=== PATIENT | female | born 2000 | race Caucasian/White ===

== ENCOUNTER 2019-02-01 01:56 | Emergency (ER) | payer BC ==
[2019-02-01 02:08] VITALS: BP 117/66
--- NOTE | 2019-02-01 02:24 | EDM.PDOC ---
ED HPI GENERAL MEDICAL PROBLEM - General Chief Complaint: Cardiovascular Problem Stated Complaint: 12 wks pg HIGH BP Time Seen by Provider: 02/01/19 02:13 - History of Present Illness INITIAL COMMENTS - FREE TEXT/NARRATIVE: 19-year-old female now 12 weeks gestation presents with elevated blood pressure Patient states her blood pressure was 140/90 while she was at work working she had her pulse up to about 140. After slowing down everything normalized quickly. She is a 2 para 0 one miscarriage now at 12 weeks she denies any cramping or contractions she has not had any other suspicious symptoms no seizure activity. - Related Data Allergies Allergy/AdvReac Type Severity Reaction Status Date / Time codeine Allergy Hives Verified 02/01/19 02:10 Home Meds: Home Meds Nitrofurantoin Monohyd/M-Cryst [Macrobid 100 mg Capsule] 100 mg PO Q12H #14 capsule 02/01/19 [Rx] Past Medical History - Past Health History Medical/Surgical History: Denies Medical/Surgical History Other Gastrointestinal History: family history of colon anyrysm. 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 Psychiatric History: Reports: None Endocrine/Metabolic History: Reports: Diabetes, Type II - Past Surgical History HEENT Surgical History: Reports: Oral Surgery (wisdom teeth extraction), Tonsillectomy Social & Family History - Family History Family Medical History: Noncontributory - Tobacco Use Smoking Status *Q: Never Smoker - Caffeine Use Caffeine Use: Reports: Coffee - Recreational Drug Use Recreational Drug Use: No - Living Situation & Occupation Living situation: Reports: Single, with Significant Other (Boyfriend) Occupation: Employed ED ROS GENERAL - Review of Systems Review Of Systems: See Below Constitutional: Reports: No Symptoms HEENT: Reports: No Symptoms Respiratory: Reports: No Symptoms Cardiovascular: Reports: No Symptoms Endocrine: Reports: No Symptoms GI/Abdominal: Reports: No Symptoms : Reports: No Symptoms Psychiatric: Reports: No Symptoms Hematologic/Lymphatic: Reports: No Symptoms Immunologic: Reports: No Symptoms ED EXAM, GENERAL - Physical Exam Exam: See Below Exam Limited By: No Limitations General Appearance: Alert, No Apparent Distress Eye Exam: Bilateral Eye: Normal Inspection Throat/Mouth: Normal Inspection, Normal Lips, Normal Teeth, Normal Gums, Normal Oropharynx, Normal Voice, No Airway Compromise Head: Atraumatic, Normocephalic Neck: Normal Inspection, Supple, Non-Tender, Full Range of Motion Respiratory/Chest: No Respiratory Distress, Lungs Clear, Normal Breath Sounds, No Accessory Muscle Use, Chest Non-Tender Cardiovascular: Normal Peripheral Pulses, Regular Rate, Rhythm, No Edema, No Gallop, No JVD, No Murmur, No Rub GI/Abdominal: Normal Bowel Sounds, Soft, Non-Tender, No Organomegaly, No Distention, No Abnormal Bruit, No Mass, Other (Some obesity heart tones not audible) Rectal (Female) Exam: Normal Exam Back Exam: Normal Inspection. No: CVA Tenderness (L), CVA Tenderness (R) Extremities: Normal Inspection Neurological: Alert, Oriented, Normal Cognition Course - Vital Signs Last Recorded V/S: Last Vital Signs Temp 37.6 C 02/01/19 02:05 Pulse 65 02/01/19 02:05 Resp 20 02/01/19 02:05 BP 117/66 02/01/19 02:05 Pulse Ox 100 02/01/19 02:05 Orthostatic Blood Pressure [ 129/74 Standing] Orthostatic Blood Pressure [ 114/69 Sitting] Orthostatic Blood Pressure [ 114/50 Supine] - Orders/Labs/Meds Orders: Active Orders 24 hr Category Date Time Status Orthostatic Vital Signs [RC] ASDIRECTED Care 02/01/19 02:19 Active Labs: Laboratory Tests 02/01/19 Range/Units 03:08 Urine Color Yellow (Yellow) Urine Appearance Slt cloudy H (Clear) Urine pH 7.5 (5.0-8.0) Ur Specific [place] 1.020 (1.005-1.030) Urine Protein Trace H (Negative) Urine Glucose (UA) Negative (Negative) Urine Ketones 1+ H (Negative) Urine Occult Blood Negative (Negative) Urine Nitrite Negative (Negative) Urine Bilirubin Negative (Negative) Urine Urobilinogen 0.2 (0.2-1.0) Ur Leukocyte Esterase Trace H (Negative) Urine RBC 0-5 (0-5) /hpf Urine WBC 0-5 (0-5) /hpf Ur Squamous Epith Cells 0-5 (0-5) /hpf Urine Bacteria Moderate H (FEW) /hpf Hyaline Casts 0-5 (0-5) /lpf Urine Mucus Few (FEW) /hpf - Re-Assessments/Exams Free Text/Narrative Re-Assessment/Exam: 02/01/19 04:04 A she has an appointment with OB on Monday she should follow up urinalysis is possibly suggestive of infectious process will obtain urine culture and start her on Macrobid Departure - Departure Time of Disposition: 04:07 Disposition: Home, Self-Care 01 Clinical Impression: Blood pressure check, Urinary tract infection Prescriptions: Nitrofurantoin Monohyd/M-Cryst [Macrobid 100 mg Capsule] 100 mg PO Q12H #14 capsule Forms: ED Department Discharge Additional Instructions: Return to emergency room with any questions problems worsening symptoms. Follow-up with Dr. Ojeda Monday as scheduled. You've been started on Macrobid, this is an antibiotic, take one twice daily for a week for an early bladder infection. - My Orders Last 24 Hours: My Active Orders 02/01/19 02:19 Orthostatic Vital Signs [RC] ASDIRECTED - Assessment/Plan Last 24 Hours: My Active Orders 02/01/19 02:19 Orthostatic Vital Signs [RC] ASDIRECTED
== END 2019-02-01 04:14 | disposition home or self-care (01) ==
LOC: JD.ED 01:56
DX: O23.41 Unspecified infection of urinary tract in pregnancy, first trimester (principal); Z01.30 Encounter for examination of blood pressure without abnormal findings; O24.311 Unspecified pre-existing diabetes mellitus in pregnancy, first trimester; E11.9 Type 2 diabetes mellitus without complications; Z98.890 Other specified postprocedural states; Z3A.12 12 weeks gestation of pregnancy
CPT/HCPCS: 81001; 87077; 87086; 99283

== ENCOUNTER 2019-02-18 21:19 | Emergency (ER) | payer BC ==
[2019-02-18 21:30] VITALS: BP 132/72
--- NOTE | 2019-02-18 21:34 | EDM.PDOC ---
ED HPI GENERAL MEDICAL PROBLEM - General Chief Complaint: ENT Problem Stated Complaint: RIGHT EAR PAINFUL/HEARING LOSS Time Seen by Provider: 02/18/19 21:34 - History of Present Illness INITIAL COMMENTS - FREE TEXT/NARRATIVE: 19-year-old female presents emergency room with right ear discomfort and hearing loss. Patient is and has been seeing Dr. Ojeda. She doesn't seem to have problems with the . Last several days the patient is in some ear discomfort on the right side and decreased hearing. She's had a lot of problems with laxatives as in the past she also it feels like maybe some fluid behind there but she's not certain this. Patient denies any fevers or chills. She's not had any upper airway congestion or cough. - Related Data Allergies Allergy/AdvReac Type Severity Reaction Status Date / Time codeine Allergy Hives Verified 02/18/19 21:30 Home Meds: Home Meds Nitrofurantoin Monohyd/M-Cryst [Macrobid 100 mg Capsule] 100 mg PO Q12H #14 capsule 02/01/19 [Rx] Past Medical History - Past Health History Medical/Surgical History: Denies Medical/Surgical History Other Gastrointestinal History: family history of colon anyrysm. 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 Psychiatric History: Reports: None Endocrine/Metabolic History: Reports: Diabetes, Type II - Past Surgical History HEENT Surgical History: Reports: Oral Surgery (wisdom teeth extraction), Tonsillectomy Social & Family History - Family History Family Medical History: Noncontributory - Tobacco Use Smoking Status *Q: Never Smoker - Caffeine Use Caffeine Use: Reports: Coffee - Living Situation & Occupation Living situation: Reports: Single, with Significant Other (Boyfriend) Occupation: Employed ED ROS ENT - Review of Systems Review Of Systems: See Below Constitutional: Reports: No Symptoms HEENT: Reports: Other (The right ear being plugged) Respiratory: Reports: No Symptoms Cardiovascular: Reports: No Symptoms GI/Abdominal: Reports: No Symptoms : Reports: No Symptoms ED EXAM, ENT - Physical Exam Exam: See Below Exam Limited By: No Limitations General Appearance: Alert, No Apparent Distress Ears: Normal External Exam, Normal Canal, TM Obscured by Cerumen, Other (Left tympanic membrane is easily seen small amount of cerumen in the canal right is obstructed) Head: Atraumatic, Normocephalic Neck: Normal Inspection, Supple, Non-Tender, Full Range of Motion Respiratory/Chest: No Respiratory Distress, Lungs Clear, Normal Breath Sounds Cardiovascular: Regular Rate, Rhythm, No Edema, No Murmur ED ENT PROCEDURES - Additional/Other Procedure(s) Other (Free Text) Procedure(s): Cerumen removal right ear: I removed a large amount with a curette it was still impacted up against the eardrum attempted irrigation the gets more out it was still impacted up against the eardrum but I was able to get a hold of it with a couple swipes with the curette and cleaned it out completely patient feels much better ears feeling almost normal Course - Vital Signs Last Recorded V/S: Last Vital Signs Temp 36.3 C 02/18/19 21:26 Pulse 84 02/18/19 21:26 Resp 19 02/18/19 21:26 BP 132/72 02/18/19 21:26 Pulse Ox 97 02/18/19 21:26 - Re-Assessments/Exams Free Text/Narrative Re-Assessment/Exam: 02/18/19 21:52 Quite a large amount of wax was removed from the right canal however I still cannot visualize the tympanic membrane will attempt to irrigate at this point. Departure - Departure Time of Disposition: 22:35 Disposition: Eloped 07 Clinical Impression: Impacted cerumen, right ear - Discharge Information Referrals: Loretta Lovell PA-C [Primary Care Provider] - Forms: ED Department Discharge Additional Instructions: Return to the emergency room with any questions problems worsening symptoms follow-up with your regular provider in about a month. Follow-up with OB as scheduled
== END 2019-02-18 22:40 | disposition home or self-care (01) ==
LOC: JD.ED 21:19
DX: O99.89 Other specified diseases and conditions complicating pregnancy, childbirth and the puerperium (principal); H61.21 Impacted cerumen, right ear; O99.282 Endocrine, nutritional and metabolic diseases complicating pregnancy, second trimester; E11.9 Type 2 diabetes mellitus without complications; Z98.890 Other specified postprocedural states; Z88.5 Allergy status to narcotic agent; Z3A.14 14 weeks gestation of pregnancy
CPT/HCPCS: 99282

== ENCOUNTER 2019-06-04 22:04 | Observation (INO) | payer BC ==
--- NOTE | 2019-06-04 22:39 | EDM.PDOC ---
ED HPI GENERAL MEDICAL PROBLEM - General Chief Complaint: Headache Stated Complaint: [facility] Time Seen by Provider: 06/04/19 22:31 - History of Present Illness INITIAL COMMENTS - FREE TEXT/NARRATIVE: 19-year-old female presents emergency room with a headache she is 28 weeks . Patient is a 2 para 0 now 28 weeks gestation who has had a headache for the last 6 days. She was seen in labor and delivery and had some testing done over the weekend. Her headache is never improved. Of concern is her blood pressure seems to be going up and according to the patient and the mother she usually has low blood pressure. Tonight the patient had an unusual episode where she became less responsive than normal was answering questions very slowly had a glassy look to her eyes and just did not feel well. She has discontinued headache in the frontal region and at the base of her skull. She has not had any fevers or chills no nausea no vomiting just has not felt well. She has not had any cramping or pain with this . No vaginal discharge no bleeding. describes klever's episode as they sat down to eat supper she was not real hungry she was answering questions very slowly. The mother noticed that the patient wasn't right talking to her on the phone and went over to the house right away. [facility] was called the transferred her here. Headache Pain Score (Numeric/FACES): 6 - Related Data Allergies Allergy/AdvReac Type Severity Reaction Status Date / Time codeine Allergy Hives Verified 06/04/19 22:12 Home Meds: Home Meds . [No Known Home Meds] 02/18/19 [History] Past Medical History - Past Health History Medical/Surgical History: Denies Medical/Surgical History Other Gastrointestinal History: family history of colon anyrysm. 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 Psychiatric History: Reports: None Endocrine/Metabolic History: Reports: Diabetes, Type II - Past Surgical History HEENT Surgical History: Reports: Oral Surgery, Tonsillectomy Social & Family History - Family History Family Medical History: Noncontributory - Tobacco Use Smoking Status *Q: Never Smoker - Caffeine Use Caffeine Use: Reports: Coffee - Recreational Drug Use Recreational Drug Use: No - Living Situation & Occupation Living situation: Reports: Single, with Significant Other (Boyfriend) Occupation: Employed ED ROS GENERAL - Review of Systems Review Of Systems: See Below Constitutional: Denies: Fever, Chills HEENT: Reports: No Symptoms Respiratory: Reports: No Symptoms Cardiovascular: Reports: No Symptoms Endocrine: Reports: No Symptoms GI/Abdominal: Reports: No Symptoms. Denies: Abdominal Pain, Constipation, Diarrhea, Nausea, Vomiting : Reports: No Symptoms Musculoskeletal: Reports: No Symptoms. Denies: Neck Pain Skin: Reports: No Symptoms Neurological: Reports: Headache Psychiatric: Reports: No Symptoms Hematologic/Lymphatic: Reports: No Symptoms Immunologic: Reports: No Symptoms ED EXAM - Physical Exam Exam: See Below Exam Limited By: No Limitations General Appearance: Alert, No Apparent Distress Eye Exam: Bilateral Eye: Normal Inspection, PERRL Ears: Normal External Exam, Normal Canal, Hearing Grossly Normal, Normal TMs Nose: Normal Inspection, Normal Mucosa, No Blood Throat/Mouth: Normal Inspection, Normal Lips, Normal Teeth, Normal Gums, Normal Oropharynx, Normal Voice, No Airway Compromise Head: Atraumatic, Normocephalic Neck: Normal Inspection, Supple, Non-Tender, Full Range of Motion. No: Lymphadenopathy (L), Lymphadenopathy (R) Respiratory/Chest: No Respiratory Distress, Lungs Clear, Normal Breath Sounds Cardiovascular: Regular Rate, Rhythm, No Edema GI/Abdominal Exam: Normal Bowel Sounds, Soft, Non-Tender, Other (She is obese heart tones 150 bpm) Heart Tones: Present Heart Tones per Min: 150 Movement: Active Back Exam: Normal Inspection. No: CVA Tenderness (L), CVA Tenderness (R) Extremities: Normal Inspection, No Pedal Edema Course - Vital Signs Last Recorded V/S: Last Vital Signs Temp 36.9 C 06/04/19 22:12 Pulse 87 06/04/19 22:12 Resp 18 06/04/19 22:12 BP 147/72 H 06/04/19 22:12 Pulse Ox 100 06/04/19 22:12 - Orders/Labs/Meds Orders: Active Orders 24 hr Category Date Time Status Lactated Ringers [Ringers, Lactated] 1,000 ml Med 06/04/19 23:00 Active IV ASDIRECTED Medication Orders Lactated Ringer's (Ringers, Lactated) 1,000 mls @ 125 mls/hr IV ASDIRECTED WILLIE Last Admin: 06/04/19 23:09 Dose: 125 mls/hr Labs: Laboratory Tests 06/04/19 06/04/19 06/04/19 Range/Units 22:23 22:55 22:55 WBC 14.28 H (3.98-10.04) K/mm3 RBC 3.98 (3.98-5.22) M/mm3 Hgb 10.7 L D (11.2-15.7) gm/L Hct 33.0 L (34.1-44.9) % MCV 82.9 D (79.4-94.8) fl MCH 26.9 (25.6-32.2) pg MCHC 32.4 (32.2-35.5) g/dl RDW Std Deviation 39.3 (36.4-46.3) fL Plt Count 364 (182-369) K/mm3 MPV 10.1 (9.4-12.3) fl Neutrophils % (Manual) 67 H (40-60) % Band Neutrophils % 0 (0-10) % Lymphocytes % (Manual) 27 (20-40) % Atypical Lymphs % 0 % Monocytes % (Manual) 5 (2-10) % Eosinophils % (Manual) 1 (0.7-5.8) % Basophils % (Manual) 0 L (0.1-1.2) Toxic Granulation 1+ slight Platelet Estimate Adequate Plt Morphology Comment Normal Microcytosis 1+ slight RBC Morph Comment Not Reportable PT (9.7-12.0) SECONDS INR APTT (22-31) SECONDS Fibrinogen (187-446) mg/dL Fibrin Degrad Products (<5) ug/mL Sodium 138 (136-145) mEq/L Potassium 3.7 (3.5-5.1) mEq/L Chloride 105 (98-107) mEq/L Carbon Dioxide 24 (21-32) mEq/L Anion Gap 12.7 (5-15) BUN 10 (7-18) mg/dL Creatinine 0.8 (0.55-1.02) mg/dL Est Cr Clr Drug Dosing 113.16 mL/min Estimated GFR (MDRD) > 60 (>60) mL/min BUN/Creatinine Ratio 12.5 L (14-18) Glucose 102 (74-106) mg/dL Uric Acid 4.2 (2.6-6.0) mg/dL Calcium 8.8 (8.5-10.1) mg/dL Total Bilirubin 0.2 (0.2-1.0) mg/dL AST 15 (15-37) U/L ALT 33 (14-59) U/L Alkaline Phosphatase 98 (46-116) U/L Total Protein 6.6 (6.4-8.2) g/dl Albumin 2.3 L (3.4-5.0) g/dl Globulin 4.3 gm/dL Albumin/Globulin Ratio 0.5 L (1-2) Urine Color Yellow (Yellow) Urine Appearance Clear (Clear) Urine pH 7.0 (5.0-8.0) Ur Specific [place] 1.010 (1.005-1.030) Urine Protein Negative (Negative) Urine Glucose (UA) Negative (Negative) Urine Ketones Negative (Negative) Urine Occult Blood Negative (Negative) Urine Nitrite Negative (Negative) Urine Bilirubin Negative (Negative) Urine Urobilinogen 0.2 (0.2-1.0) Ur Leukocyte Esterase Negative (Negative) Urine RBC 0-5 (0-5) /hpf Urine WBC 0-5 (0-5) /hpf Ur Epithelial Cells 0-5 (0-5) /hpf Urine Bacteria Few (FEW) /hpf Urine Mucus Not seen (FEW) /hpf 06/04/19 06/04/19 Range/Units 22:55 22:55 WBC (3.98-10.04) K/mm3 RBC (3.98-5.22) M/mm3 Hgb (11.2-15.7) gm/L Hct (34.1-44.9) % MCV (79.4-94.8) fl MCH (25.6-32.2) pg MCHC (32.2-35.5) g/dl RDW Std Deviation (36.4-46.3) fL Plt Count (182-369) K/mm3 MPV (9.4-12.3) fl Neutrophils % (Manual) (40-60) % Band Neutrophils % (0-10) % Lymphocytes % (Manual) (20-40) % Atypical Lymphs % % Monocytes % (Manual) (2-10) % Eosinophils % (Manual) (0.7-5.8) % Basophils % (Manual) (0.1-1.2) Toxic Granulation Platelet Estimate Plt Morphology Comment Microcytosis RBC Morph Comment PT 9.9 (9.7-12.0) SECONDS INR < 0.93 APTT 25 (22-31) SECONDS Fibrinogen 647 H (187-446) mg/dL Fibrin Degrad Products < 5 ug/ml (<5) ug/mL Sodium (136-145) mEq/L Potassium (3.5-5.1) mEq/L Chloride (98-107) mEq/L Carbon Dioxide (21-32) mEq/L Anion Gap (5-15) BUN (7-18) mg/dL Creatinine (0.55-1.02) mg/dL Est Cr Clr Drug Dosing mL/min Estimated GFR (MDRD) (>60) mL/min BUN/Creatinine Ratio (14-18) Glucose (74-106) mg/dL Uric Acid (2.6-6.0) mg/dL Calcium (8.5-10.1) mg/dL Total Bilirubin (0.2-1.0) mg/dL AST (15-37) U/L ALT (14-59) U/L Alkaline Phosphatase (46-116) U/L Total Protein (6.4-8.2) g/dl Albumin (3.4-5.0) g/dl Globulin gm/dL Albumin/Globulin Ratio (1-2) Urine Color (Yellow) Urine Appearance (Clear) Urine pH (5.0-8.0) Ur Specific [place] (1.005-1.030) Urine Protein (Negative) Urine Glucose (UA) (Negative) Urine Ketones (Negative) Urine Occult Blood (Negative) Urine Nitrite (Negative) Urine Bilirubin (Negative) Urine Urobilinogen (0.2-1.0) Ur Leukocyte Esterase (Negative) Urine RBC (0-5) /hpf Urine WBC (0-5) /hpf Ur Epithelial Cells (0-5) /hpf Urine Bacteria (FEW) /hpf Urine Mucus (FEW) /hpf Meds: Medications Generic Name Dose Route Start Last Admin Trade Name Freq PRN Reason Stop Dose Admin Lactated Ringer's 1,000 mls @ 125 mls/hr 06/04/19 23:00 06/04/19 23:09 Ringers, Lactated IV 125 mls/hr ASDIRECTED WILLIE Administration Discontinued Medications Generic Name Dose Route Start Last Admin Trade Name Freq PRN Reason Stop Dose Admin Hydroxyzine HCl 50 mg 06/04/19 23:23 06/04/19 23:56 Vistaril IM 06/04/19 23:24 50 mg ONETIME ONE Administration Morphine Sulfate 10 mg 06/04/19 23:45 06/04/19 23:57 Morphine IV 06/04/19 23:46 10 mg ONETIME ONE Administration - Re-Assessments/Exams Free Text/Narrative Re-Assessment/Exam: 06/05/19 00:45 Patient's presents emergency room with a history concerning for possible preeclampsia. Dr. Ojeda consulted early. Reviewed labs to go over. Initial plan is to have her do an extended outpatient OB check after leaving the department here after initial labs tomorrow morning we'll check an OB ultrasound and recheck all her labs. Patient is feeling much better at this time after receiving 10 mg of IM morphine and 50 mg of IM hydroxyzine. She'll be placed on a low-salt diet. Departure - Departure Time of Disposition: 23:25 Disposition: Refer to Observation Clinical Impression: 28 weeks gestation of , Headache, Elevated blood pressure affecting in third trimester, antepartum - Discharge Information - My Orders Last 24 Hours: My Active Orders 06/04/19 23:00 Lactated Ringers [Ringers, Lactated] 1,000 ml IV ASDIRECTED - Assessment/Plan Last 24 Hours: My Active Orders 06/04/19 23:00 Lactated Ringers [Ringers, Lactated] 1,000 ml IV ASDIRECTED
[2019-06-04] MEDS ORDERED: Lactated Ringers 1,000 ML IV SCH (23:00)
[2019-06-04] MEDS ORDERED: hydrOXYzine HCl 25 MG/ML SDV IM ONE (23:23)
[2019-06-04] MEDS ORDERED: Morphine 10 MG/ML Syringe IM ONE (23:23)
[2019-06-05] MEDS ORDERED: Lactated Ringers 1,000 ML IV SCH (01:45)
[2019-06-05] MEDS ORDERED: Acetaminophen 325 MG Tab PO PRN (02:36)
[2019-06-05 04:46] VITALS: BP 122/45; PULSE 67
[2019-06-05] MEDS ORDERED: Famotidine 20 MG/2 ML SDV IVPUSH ONE (08:20)
--- NOTE | 2019-06-05 08:54 | PCM.LDHP ---
<Arlene Faria - Last Filed: 06/05/19 10:34> L&D History of Present Illness - General Date of Service: 06/05/19 Admit Problem/Dx: Patient Status Order with Admit Dx/Problem 06/05/19 00:44 Admission Status [Patient Status] [ADT] Routine 06/05/19 08:02 Patient Status [ADT] Routine 06/05/19 08:22 Patient Status [ADT] Routine Admission Diagnosis/Problem Admission Diagnosis/Problem Headache/AMS 06/05/19 08:49 Source of Information: Patient, Significant Other History Limitations: Reports: Other - History of Present Illness Introduction:: Yessenia is a 19 year old female TANO 08/16/2019 at EGA 29 5/7 weeks being observed in L&D for a headache and an AMS( Altered Mental Status) episode. Currently she is A&O x3. She states her headache started last weekend and she was seen in L&D at that time for an evaluation and was discharged home. At the time of this current headache, she was at home in [place] eating dinner at about 8 PM last night when she was "not feeling right and got really hot." Her had her lay down on the couch with no relief. She does not have a very good recollection from the onset of her headache to arriving in the ED last night. Per her , her eyes became glassy and she was very slow to answer questions. At the worst, her headache was a 7/10, it is currently a 4/ 10. Pt described the headache as being a constant pressure behind her eyes, at the back of her head and the base of her neck. It also makes her " hypersensitive to light and sound." She states she remembers everything from the time she arrived at the hospital until now but that things are still foggy. Timing/Duration: Reports: sudden onset, constant/continuous Quality: Reports: Pressure Severity: Moderate Pain Score: 4 Improves with: Reports: Medication, Rest Worsens with: Reports: Movement - Related Data Allergies/Adverse Reactions: Allergies Allergy/AdvReac Type Severity Reaction Status Date / Time codeine Allergy Hives Verified 06/05/19 01:19 Home Medications: Home Meds Pnv with Ca,No.72/Iron/Fa [ Vitamin with Low Iron] 1 each PO DAILY 06/05 [History] Past Medical History - Past Health History Medical/Surgical History: Denies Medical/Surgical History HEENT History: Reports: Allergic Rhinitis Other Gastrointestinal History: family history of colon anyrysm. 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 - Past Surgical History HEENT Surgical History: Reports: Oral Surgery, Tonsillectomy Social & Family History - Family History Family Medical History: Noncontributory Cardiac: Reports: Angina (maternal grandpa), Hypertension (mom) OBGYN: Reports: Other (See Below) (mother had preecclampsia with all of her children) Endocrine/Metabolic: Reports: Diabetes, type II (maternal and paternal grandparents) - Tobacco Use Smoking Status *Q: Former Smoker Used Tobacco, but Quit: Yes Month/Year Tobacco Last Used: 2017 - Caffeine Use Caffeine Use: Reports: Coffee Other Caffeine Use: One cup a day - Recreational Drug Use Recreational Drug Use: No - Living Situation & Occupation Living situation: Reports: Single, with Significant Other (Boyfriend) Occupation: Employed H&P Review of Systems - Review of Systems: Review Of Systems: See Below General: Reports: Weakness HEENT: Reports: Eye Pain, Headaches, Visual Changes Pulmonary: Reports: No Symptoms Cardiovascular: Reports: No Symptoms Gastrointestinal: Reports: No Symptoms Genitourinary: Reports: No Symptoms Musculoskeletal: Reports: No Symptoms Skin: Reports: No Symptoms Psychiatric: Reports: No Symptoms Neurological: Reports: Headache, Weakness Hematologic/Lymphatic: Reports: No Symptoms Immunologic: Reports: Seasonal Allergy L&D Exam - Exam Exam: See Below - Vital Signs Vital Signs: Last Vital Signs Temp 98.3 F 06/05/19 04:45 Pulse 67 06/05/19 04:45 Resp 16 06/05/19 04:45 BP 122/45 L 06/05/19 04:45 Pulse Ox 96 06/05/19 04:45 Weight: 283 lb 8 oz - OB Specific Movement: Active Heart Tones: Present Heart Tones per Min: 150 - Exam General: Alert, Oriented, Cooperative HEENT: Conjunctiva Clear, EACs Clear, EOMI, Hearing Intact, Mucosa Moist & [place] , Nares Patent, Posterior Pharynx Clear, Pupils Equal, Pupils Reactive, TMs Clear Neck: Supple, Trachea Midline Lungs: Clear to Auscultation, Normal Respiratory Effort Cardiovascular: Regular Rate, Regular Rhythm GI/Abdominal Exam: Normal Bowel Sounds, Soft, Non-Tender, No Abnormal Bruit Extremities: Normal Inspection, Normal Range of Motion, Non-Tender, No Pedal Edema, Normal Capillary Refill Skin: Warm, Dry, Intact Neurological: Cranial Nerves Intact, Strength Equal Bilateral, Normal Gait, Normal Speech, Normal Tone, Sensation Intact Psychiatric: Alert, Normal Mood, Other (flat affect ) - Patient Data Lab Results Last 24 hrs: Laboratory Results - last 24 hr 06/04/19 06/04/19 06/04/19 Range/Units 22:23 22:55 22:55 WBC 14.28 H (3.98-10.04) K/mm3 RBC 3.98 (3.98-5.22) M/mm3 Hgb 10.7 L D (11.2-15.7) gm/L Hct 33.0 L (34.1-44.9) % MCV 82.9 D (79.4-94.8) fl MCH 26.9 (25.6-32.2) pg MCHC 32.4 (32.2-35.5) g/dl RDW Std Deviation 39.3 (36.4-46.3) fL Plt Count 364 (182-369) K/mm3 MPV 10.1 (9.4-12.3) fl Neut % (Auto) (34.0-71.1) % Lymph % (Auto) (19.3-51.7) % [place] % (Auto) (4.7-12.5) % Eos % (Auto) (0.7-5.8) Baso % (Auto) (0.1-1.2) % Neut # (Auto) (1.56-6.13) K/mm3 Lymph # (Auto) (1.18-3.74) K/mm3 [place] # (Auto) (0.24-0.36) K/mm3 Eos # (Auto) (0.04-0.36) K/mm3 Baso # (Auto) (0.01-0.08) K/mm3 Neutrophils % (Manual) 67 H (40-60) % Band Neutrophils % 0 (0-10) % Lymphocytes % (Manual) 27 (20-40) % Atypical Lymphs % 0 % Monocytes % (Manual) 5 (2-10) % Eosinophils % (Manual) 1 (0.7-5.8) % Basophils % (Manual) 0 L (0.1-1.2) Toxic Granulation 1+ slight Platelet Estimate Adequate Plt Morphology Comment Normal Microcytosis 1+ slight RBC Morph Comment Not Reportable PT (9.7-12.0) SECONDS INR APTT (22-31) SECONDS Fibrinogen (187-446) mg/dL Fibrin Degrad Products (<5) ug/mL Sodium 138 (136-145) mEq/L Potassium 3.7 (3.5-5.1) mEq/L Chloride 105 (98-107) mEq/L Carbon Dioxide 24 (21-32) mEq/L Anion Gap 12.7 (5-15) BUN 10 (7-18) mg/dL Creatinine 0.8 (0.55-1.02) mg/dL Est Cr Clr Drug Dosing 113.16 mL/min Estimated GFR (MDRD) > 60 (>60) mL/min BUN/Creatinine Ratio 12.5 L (14-18) Glucose 102 (74-106) mg/dL Uric Acid 4.2 (2.6-6.0) mg/dL Calcium 8.8 (8.5-10.1) mg/dL Total Bilirubin 0.2 (0.2-1.0) mg/dL AST 15 (15-37) U/L ALT 33 (14-59) U/L Alkaline Phosphatase 98 (46-116) U/L Total Protein 6.6 (6.4-8.2) g/dl Albumin 2.3 L (3.4-5.0) g/dl Globulin 4.3 gm/dL Albumin/Globulin Ratio 0.5 L (1-2) Urine Color Yellow (Yellow) Urine Appearance Clear (Clear) Urine pH 7.0 (5.0-8.0) Ur Specific [place] 1.010 (1.005-1.030) Urine Protein Negative (Negative) Urine Glucose (UA) Negative (Negative) Urine Ketones Negative (Negative) Urine Occult Blood Negative (Negative) Urine Nitrite Negative (Negative) Urine Bilirubin Negative (Negative) Urine Urobilinogen 0.2 (0.2-1.0) Ur Leukocyte Esterase Negative (Negative) Urine RBC 0-5 (0-5) /hpf Urine WBC 0-5 (0-5) /hpf Ur Epithelial Cells 0-5 (0-5) /hpf Amorphous Sediment (NOT SEEN) /hpf Urine Bacteria Few (FEW) /hpf Urine Mucus Not seen (FEW) /hpf 06/04/19 06/04/19 06/05/19 Range/Units 22:55 22:55 02:18 WBC (3.98-10.04) K/mm3 RBC (3.98-5.22) M/mm3 Hgb (11.2-15.7) gm/L Hct (34.1-44.9) % MCV (79.4-94.8) fl MCH (25.6-32.2) pg MCHC (32.2-35.5) g/dl RDW Std Deviation (36.4-46.3) fL Plt Count (182-369) K/mm3 MPV (9.4-12.3) fl Neut % (Auto) (34.0-71.1) % Lymph % (Auto) (19.3-51.7) % [place] % (Auto) (4.7-12.5) % Eos % (Auto) (0.7-5.8) Baso % (Auto) (0.1-1.2) % Neut # (Auto) (1.56-6.13) K/mm3 Lymph # (Auto) (1.18-3.74) K/mm3 [place] # (Auto) (0.24-0.36) K/mm3 Eos # (Auto) (0.04-0.36) K/mm3 Baso # (Auto) (0.01-0.08) K/mm3 Neutrophils % (Manual) (40-60) % Band Neutrophils % (0-10) % Lymphocytes % (Manual) (20-40) % Atypical Lymphs % % Monocytes % (Manual) (2-10) % Eosinophils % (Manual) (0.7-5.8) % Basophils % (Manual) (0.1-1.2) Toxic Granulation Platelet Estimate Plt Morphology Comment Microcytosis RBC Morph Comment PT 9.9 (9.7-12.0) SECONDS INR < 0.93 APTT 25 (22-31) SECONDS Fibrinogen 647 H (187-446) mg/dL Fibrin Degrad Products < 5 ug/ml (<5) ug/mL Sodium (136-145) mEq/L Potassium (3.5-5.1) mEq/L Chloride (98-107) mEq/L Carbon Dioxide (21-32) mEq/L Anion Gap (5-15) BUN (7-18) mg/dL Creatinine (0.55-1.02) mg/dL Est Cr Clr Drug Dosing mL/min Estimated GFR (MDRD) (>60) mL/min BUN/Creatinine Ratio (14-18) Glucose (74-106) mg/dL Uric Acid (2.6-6.0) mg/dL Calcium (8.5-10.1) mg/dL Total Bilirubin (0.2-1.0) mg/dL AST (15-37) U/L ALT (14-59) U/L Alkaline Phosphatase (46-116) U/L Total Protein (6.4-8.2) g/dl Albumin (3.4-5.0) g/dl Globulin gm/dL Albumin/Globulin Ratio (1-2) Urine Color Yellow (Yellow) Urine Appearance Clear (Clear) Urine pH 7.0 (5.0-8.0) Ur Specific [place] 1.020 (1.005-1.030) Urine Protein Negative (Negative) Urine Glucose (UA) Negative (Negative) Urine Ketones Negative (Negative) Urine Occult Blood Negative (Negative) Urine Nitrite Negative (Negative) Urine Bilirubin Negative (Negative) Urine Urobilinogen 0.2 (0.2-1.0) Ur Leukocyte Esterase Negative (Negative) Urine RBC 0-5 (0-5) /hpf Urine WBC 0-5 (0-5) /hpf Ur Epithelial Cells 0-5 (0-5) /hpf Amorphous Sediment Few H (NOT SEEN) /hpf Urine Bacteria Rare (FEW) /hpf Urine Mucus Not seen (FEW) /hpf 06/05/19 06/05/19 06/05/19 Range/Units 05:00 05:00 05:00 WBC 13.36 H (3.98-10.04) K/mm3 RBC 3.64 L (3.98-5.22) M/mm3 Hgb 9.7 L (11.2-15.7) gm/L Hct 30.3 L (34.1-44.9) % MCV 83.2 (79.4-94.8) fl MCH 26.6 (25.6-32.2) pg MCHC 32.0 L (32.2-35.5) g/dl RDW Std Deviation 39.1 (36.4-46.3) fL Plt Count 341 (182-369) K/mm3 MPV 9.9 (9.4-12.3) fl Neut % (Auto) 68.3 (34.0-71.1) % Lymph % (Auto) 22.1 (19.3-51.7) % [place] % (Auto) 7.4 (4.7-12.5) % Eos % (Auto) 1.7 (0.7-5.8) Baso % (Auto) 0.1 (0.1-1.2) % Neut # (Auto) 9.12 H (1.56-6.13) K/mm3 Lymph # (Auto) 2.95 (1.18-3.74) K/mm3 [place] # (Auto) 0.99 H (0.24-0.36) K/mm3 Eos # (Auto) 0.23 (0.04-0.36) K/mm3 Baso # (Auto) 0.02 (0.01-0.08) K/mm3 Neutrophils % (Manual) (40-60) % Band Neutrophils % (0-10) % Lymphocytes % (Manual) (20-40) % Atypical Lymphs % % Monocytes % (Manual) (2-10) % Eosinophils % (Manual) (0.7-5.8) % Basophils % (Manual) (0.1-1.2) Toxic Granulation Platelet Estimate Plt Morphology Comment Microcytosis RBC Morph Comment PT 10.3 (9.7-12.0) SECONDS INR 0.94 APTT (22-31) SECONDS Fibrinogen 546 H (187-446) mg/dL Fibrin Degrad Products (<5) ug/mL Sodium 137 (136-145) mEq/L Potassium 3.8 (3.5-5.1) mEq/L Chloride 104 (98-107) mEq/L Carbon Dioxide 21 (21-32) mEq/L Anion Gap 15.8 H (5-15) BUN 10 (7-18) mg/dL Creatinine 0.8 (0.55-1.02) mg/dL Est Cr Clr Drug Dosing 113.16 mL/min Estimated GFR (MDRD) > 60 (>60) mL/min BUN/Creatinine Ratio 12.5 L (14-18) Glucose 103 (74-106) mg/dL Uric Acid 4.4 (2.6-6.0) mg/dL Calcium 8.2 L (8.5-10.1) mg/dL Total Bilirubin 0.2 (0.2-1.0) mg/dL AST 15 (15-37) U/L ALT 27 (14-59) U/L Alkaline Phosphatase 87 (46-116) U/L Total Protein 6.0 L (6.4-8.2) g/dl Albumin 1.9 L (3.4-5.0) g/dl Globulin 4.1 gm/dL Albumin/Globulin Ratio 0.5 L (1-2) Urine Color (Yellow) Urine Appearance (Clear) Urine pH (5.0-8.0) Ur Specific [place] (1.005-1.030) Urine Protein (Negative) Urine Glucose (UA) (Negative) Urine Ketones (Negative) Urine Occult Blood (Negative) Urine Nitrite (Negative) Urine Bilirubin (Negative) Urine Urobilinogen (0.2-1.0) Ur Leukocyte Esterase (Negative) Urine RBC (0-5) /hpf Urine WBC (0-5) /hpf Ur Epithelial Cells (0-5) /hpf Amorphous Sediment (NOT SEEN) /hpf Urine Bacteria (FEW) /hpf Urine Mucus (FEW) /hpf 06/05/19 Range/Units 05:00 WBC (3.98-10.04) K/mm3 RBC (3.98-5.22) M/mm3 Hgb (11.2-15.7) gm/L Hct (34.1-44.9) % MCV (79.4-94.8) fl MCH (25.6-32.2) pg MCHC (32.2-35.5) g/dl RDW Std Deviation (36.4-46.3) fL Plt Count (182-369) K/mm3 MPV (9.4-12.3) fl Neut % (Auto) (34.0-71.1) % Lymph % (Auto) (19.3-51.7) % [place] % (Auto) (4.7-12.5) % Eos % (Auto) (0.7-5.8) Baso % (Auto) (0.1-1.2) % Neut # (Auto) (1.56-6.13) K/mm3 Lymph # (Auto) (1.18-3.74) K/mm3 [place] # (Auto) (0.24-0.36) K/mm3 Eos # (Auto) (0.04-0.36) K/mm3 Baso # (Auto) (0.01-0.08) K/mm3 Neutrophils % (Manual) (40-60) % Band Neutrophils % (0-10) % Lymphocytes % (Manual) (20-40) % Atypical Lymphs % % Monocytes % (Manual) (2-10) % Eosinophils % (Manual) (0.7-5.8) % Basophils % (Manual) (0.1-1.2) Toxic Granulation Platelet Estimate Plt Morphology Comment Microcytosis RBC Morph Comment PT (9.7-12.0) SECONDS INR APTT (22-31) SECONDS Fibrinogen (187-446) mg/dL Fibrin Degrad Products < 5 ug/ml (<5) ug/mL Sodium (136-145) mEq/L Potassium (3.5-5.1) mEq/L Chloride (98-107) mEq/L Carbon Dioxide (21-32) mEq/L Anion Gap (5-15) BUN (7-18) mg/dL Creatinine (0.55-1.02) mg/dL Est Cr Clr Drug Dosing mL/min Estimated GFR (MDRD) (>60) mL/min BUN/Creatinine Ratio (14-18) Glucose (74-106) mg/dL Uric Acid (2.6-6.0) mg/dL Calcium (8.5-10.1) mg/dL Total Bilirubin (0.2-1.0) mg/dL AST (15-37) U/L ALT (14-59) U/L Alkaline Phosphatase (46-116) U/L Total Protein (6.4-8.2) g/dl Albumin (3.4-5.0) g/dl Globulin gm/dL Albumin/Globulin Ratio (1-2) Urine Color (Yellow) Urine Appearance (Clear) Urine pH (5.0-8.0) Ur Specific [place] (1.005-1.030) Urine Protein (Negative) Urine Glucose (UA) (Negative) Urine Ketones (Negative) Urine Occult Blood (Negative) Urine Nitrite (Negative) Urine Bilirubin (Negative) Urine Urobilinogen (0.2-1.0) Ur Leukocyte Esterase (Negative) Urine RBC (0-5) /hpf Urine WBC (0-5) /hpf Ur Epithelial Cells (0-5) /hpf Amorphous Sediment (NOT SEEN) /hpf Urine Bacteria (FEW) /hpf Urine Mucus (FEW) /hpf Result Diagrams: 06/05/19 05:00 06/05/19 05:00 - Problem List (1) Headache SNOMED Code(s): 32328355 ICD Code: R51 - HEADACHE Status: Acute Current Visit: Yes Onset Date: ~ 05/31/19 Qualifiers: Headache type: new daily persistent Qualified Code(s): G44.52 - New daily persistent headache (NDPH) (2) 29 weeks gestation of SNOMED Code(s): 72818183 ICD Code: Z3A.29 - 29 WEEKS GESTATION OF Status: Acute Current Visit: Yes Problem List Initiated/Reviewed/Updated: No Orders Last 24hrs: Active Orders 24 hr Category Date Time Status Patient Status [ADT] Routine ADT 06/05/19 08:22 Active EEG Awake Drowsy [RC] STAT Care 06/05/19 08:44 Active Monitoring [RC] Q2HR Care 06/05/19 01:40 Active Up With Assistance [RC] ASDIRECTED Care 06/05/19 01:38 Active Vital Signs [RC] Q2HR Care 06/05/19 01:40 Active 2 Gram Sodium Diet [DIET] Diet 06/05/19 Breakfast Active Brain w Cont [MR] Routine Exams 06/05/19 08:16 Ordered Carotid Ltd Lt [US] Routine Exams 06/05/19 08:19 Ordered Carotid Ltd Rt [US] Routine Exams 06/05/19 08:19 Ordered OB Follow Up 1st Gest [US] Routine Exams 06/05/19 07:00 Ordered Acetaminophen [Tylenol] Med 06/05/19 02:36 Active 650 mg PO Q4H PRN Lactated Ringers [Ringers, Lactated] 1,000 ml Med 06/05/19 01:45 Active IV ASDIRECTED Resuscitation Status Routine Resus Stat 06/05/19 01:37 Ordered Medication Orders Acetaminophen (Tylenol) 650 mg PO Q4H PRN PRN Reason: Pain Last Admin: 06/05/19 02:56 Dose: 650 mg Lactated Ringer's (Ringers, Lactated) 1,000 mls @ 125 mls/hr IV ASDIRECTED [facility] Assessment/Plan Comment:: Plan 1. OB ultrasound 2. Carotid artery color doppler ultrasound 3. Head MRI with contrast 4. EEG 5. Consult hospitalist 6. Observation Status <EnmanuelitaJulio C Bosst - Last Filed: 06/05/19 10:46> L&D History of Present Illness - General Admit Problem/Dx: Patient Status Order with Admit Dx/Problem 06/05/19 00:44 Admission Status [Patient Status] [ADT] Routine 06/05/19 08:02 Patient Status [ADT] Routine 06/05/19 08:22 Patient Status [ADT] Routine Admission Diagnosis/Problem Admission Diagnosis/Problem - History of Present Illness Introduction:: Patient's mother had history of Preeclampsia with each of her pregnancies. Patient was a breech presentation and product of delivery. Patient also had mid-epigastric pain during the night, resolved this morning. Past Medical History HEENT History: Reports: Allergic Rhinitis : 2 Para: 0 (0010) LMP (Approximate): L&D Exam - Vital Signs Vital Signs: Last Vital Signs Temp 98.3 F 06/05/19 04:45 Pulse 67 06/05/19 04:45 Resp 16 06/05/19 04:45 BP 122/45 L 06/05/19 04:45 Pulse Ox 96 06/05/19 04:45 - Patient Data Lab Results Last 24 hrs: Laboratory Results - last 24 hr 06/04/19 06/04/19 06/04/19 Range/Units 22:23 22:55 22:55 WBC 14.28 H (3.98-10.04) K/mm3 RBC 3.98 (3.98-5.22) M/mm3 Hgb 10.7 L D (11.2-15.7) gm/L Hct 33.0 L (34.1-44.9) % MCV 82.9 D (79.4-94.8) fl MCH 26.9 (25.6-32.2) pg MCHC 32.4 (32.2-35.5) g/dl RDW Std Deviation 39.3 (36.4-46.3) fL Plt Count 364 (182-369) K/mm3 MPV 10.1 (9.4-12.3) fl Neut % (Auto) (34.0-71.1) % Lymph % (Auto) (19.3-51.7) % [place] % (Auto) (4.7-12.5) % Eos % (Auto) (0.7-5.8) Baso % (Auto) (0.1-1.2) % Neut # (Auto) (1.56-6.13) K/mm3 Lymph # (Auto) (1.18-3.74) K/mm3 [place] # (Auto) (0.24-0.36) K/mm3 Eos # (Auto) (0.04-0.36) K/mm3 Baso # (Auto) (0.01-0.08) K/mm3 Neutrophils % (Manual) 67 H (40-60) % Band Neutrophils % 0 (0-10) % Lymphocytes % (Manual) 27 (20-40) % Atypical Lymphs % 0 % Monocytes % (Manual) 5 (2-10) % Eosinophils % (Manual) 1 (0.7-5.8) % Basophils % (Manual) 0 L (0.1-1.2) Toxic Granulation 1+ slight Platelet Estimate Adequate Plt Morphology Comment Normal Microcytosis 1+ slight RBC Morph Comment Not Reportable PT (9.7-12.0) SECONDS INR APTT (22-31) SECONDS Fibrinogen (187-446) mg/dL Fibrin Degrad Products (<5) ug/mL Sodium 138 (136-145) mEq/L Potassium 3.7 (3.5-5.1) mEq/L Chloride 105 (98-107) mEq/L Carbon Dioxide 24 (21-32) mEq/L Anion Gap 12.7 (5-15) BUN 10 (7-18) mg/dL Creatinine 0.8 (0.55-1.02) mg/dL Est Cr Clr Drug Dosing 113.16 mL/min Estimated GFR (MDRD) > 60 (>60) mL/min BUN/Creatinine Ratio 12.5 L (14-18) Glucose 102 (74-106) mg/dL Uric Acid 4.2 (2.6-6.0) mg/dL Calcium 8.8 (8.5-10.1) mg/dL Total Bilirubin 0.2 (0.2-1.0) mg/dL AST 15 (15-37) U/L ALT 33 (14-59) U/L Alkaline Phosphatase 98 (46-116) U/L Total Protein 6.6 (6.4-8.2) g/dl Albumin 2.3 L (3.4-5.0) g/dl Globulin 4.3 gm/dL Albumin/Globulin Ratio 0.5 L (1-2) Urine Color Yellow (Yellow) Urine Appearance Clear (Clear) Urine pH 7.0 (5.0-8.0) Ur Specific [place] 1.010 (1.005-1.030) Urine Protein Negative (Negative) Urine Glucose (UA) Negative (Negative) Urine Ketones Negative (Negative) Urine Occult Blood Negative (Negative) Urine Nitrite Negative (Negative) Urine Bilirubin Negative (Negative) Urine Urobilinogen 0.2 (0.2-1.0) Ur Leukocyte Esterase Negative (Negative) Urine RBC 0-5 (0-5) /hpf Urine WBC 0-5 (0-5) /hpf Ur Epithelial Cells 0-5 (0-5) /hpf Amorphous Sediment (NOT SEEN) /hpf Urine Bacteria Few (FEW) /hpf Urine Mucus Not seen (FEW) /hpf 06/04/19 06/04/19 06/05/19 Range/Units 22:55 22:55 02:18 WBC (3.98-10.04) K/mm3 RBC (3.98-5.22) M/mm3 Hgb (11.2-15.7) gm/L Hct (34.1-44.9) % MCV (79.4-94.8) fl MCH (25.6-32.2) pg MCHC (32.2-35.5) g/dl RDW Std Deviation (36.4-46.3) fL Plt Count (182-369) K/mm3 MPV (9.4-12.3) fl Neut % (Auto) (34.0-71.1) % Lymph % (Auto) (19.3-51.7) % [place] % (Auto) (4.7-12.5) % Eos % (Auto) (0.7-5.8) Baso % (Auto) (0.1-1.2) % Neut # (Auto) (1.56-6.13) K/mm3 Lymph # (Auto) (1.18-3.74) K/mm3 [place] # (Auto) (0.24-0.36) K/mm3 Eos # (Auto) (0.04-0.36) K/mm3 Baso # (Auto) (0.01-0.08) K/mm3 Neutrophils % (Manual) (40-60) % Band Neutrophils % (0-10) % Lymphocytes % (Manual) (20-40) % Atypical Lymphs % % Monocytes % (Manual) (2-10) % Eosinophils % (Manual) (0.7-5.8) % Basophils % (Manual) (0.1-1.2) Toxic Granulation Platelet Estimate Plt Morphology Comment Microcytosis RBC Morph Comment PT 9.9 (9.7-12.0) SECONDS INR < 0.93 APTT 25 (22-31) SECONDS Fibrinogen 647 H (187-446) mg/dL Fibrin Degrad Products < 5 ug/ml (<5) ug/mL Sodium (136-145) mEq/L Potassium (3.5-5.1) mEq/L Chloride (98-107) mEq/L Carbon Dioxide (21-32) mEq/L Anion Gap (5-15) BUN (7-18) mg/dL Creatinine (0.55-1.02) mg/dL Est Cr Clr Drug Dosing mL/min Estimated GFR (MDRD) (>60) mL/min BUN/Creatinine Ratio (14-18) Glucose (74-106) mg/dL Uric Acid (2.6-6.0) mg/dL Calcium (8.5-10.1) mg/dL Total Bilirubin (0.2-1.0) mg/dL AST (15-37) U/L ALT (14-59) U/L Alkaline Phosphatase (46-116) U/L Total Protein (6.4-8.2) g/dl Albumin (3.4-5.0) g/dl Globulin gm/dL Albumin/Globulin Ratio (1-2) Urine Color Yellow (Yellow) Urine Appearance Clear (Clear) Urine pH 7.0 (5.0-8.0) Ur Specific [place] 1.020 (1.005-1.030) Urine Protein Negative (Negative) Urine Glucose (UA) Negative (Negative) Urine Ketones Negative (Negative) Urine Occult Blood Negative (Negative) Urine Nitrite Negative (Negative) Urine Bilirubin Negative (Negative) Urine Urobilinogen 0.2 (0.2-1.0) Ur Leukocyte Esterase Negative (Negative) Urine RBC 0-5 (0-5) /hpf Urine WBC 0-5 (0-5) /hpf Ur Epithelial Cells 0-5 (0-5) /hpf Amorphous Sediment Few H (NOT SEEN) /hpf Urine Bacteria Rare (FEW) /hpf Urine Mucus Not seen (FEW) /hpf 06/05/19 06/05/19 06/05/19 Range/Units 05:00 05:00 05:00 WBC 13.36 H (3.98-10.04) K/mm3 RBC 3.64 L (3.98-5.22) M/mm3 Hgb 9.7 L (11.2-15.7) gm/L Hct 30.3 L (34.1-44.9) % MCV 83.2 (79.4-94.8) fl MCH 26.6 (25.6-32.2) pg MCHC 32.0 L (32.2-35.5) g/dl RDW Std Deviation 39.1 (36.4-46.3) fL Plt Count 341 (182-369) K/mm3 MPV 9.9 (9.4-12.3) fl Neut % (Auto) 68.3 (34.0-71.1) % Lymph % (Auto) 22.1 (19.3-51.7) % [place] % (Auto) 7.4 (4.7-12.5) % Eos % (Auto) 1.7 (0.7-5.8) Baso % (Auto) 0.1 (0.1-1.2) % Neut # (Auto) 9.12 H (1.56-6.13) K/mm3 Lymph # (Auto) 2.95 (1.18-3.74) K/mm3 [place] # (Auto) 0.99 H (0.24-0.36) K/mm3 Eos # (Auto) 0.23 (0.04-0.36) K/mm3 Baso # (Auto) 0.02 (0.01-0.08) K/mm3 Neutrophils % (Manual) (40-60) % Band Neutrophils % (0-10) % Lymphocytes % (Manual) (20-40) % Atypical Lymphs % % Monocytes % (Manual) (2-10) % Eosinophils % (Manual) (0.7-5.8) % Basophils % (Manual) (0.1-1.2) Toxic Granulation Platelet Estimate Plt Morphology Comment Microcytosis RBC Morph Comment PT 10.3 (9.7-12.0) SECONDS INR 0.94 APTT (22-31) SECONDS Fibrinogen 546 H (187-446) mg/dL Fibrin Degrad Products (<5) ug/mL Sodium 137 (136-145) mEq/L Potassium 3.8 (3.5-5.1) mEq/L Chloride 104 (98-107) mEq/L Carbon Dioxide 21 (21-32) mEq/L Anion Gap 15.8 H (5-15) BUN 10 (7-18) mg/dL Creatinine 0.8 (0.55-1.02) mg/dL Est Cr Clr Drug Dosing 113.16 mL/min Estimated GFR (MDRD) > 60 (>60) mL/min BUN/Creatinine Ratio 12.5 L (14-18) Glucose 103 (74-106) mg/dL Uric Acid 4.4 (2.6-6.0) mg/dL Calcium 8.2 L (8.5-10.1) mg/dL Total Bilirubin 0.2 (0.2-1.0) mg/dL AST 15 (15-37) U/L ALT 27 (14-59) U/L Alkaline Phosphatase 87 (46-116) U/L Total Protein 6.0 L (6.4-8.2) g/dl Albumin 1.9 L (3.4-5.0) g/dl Globulin 4.1 gm/dL Albumin/Globulin Ratio 0.5 L (1-2) Urine Color (Yellow) Urine Appearance (Clear) Urine pH (5.0-8.0) Ur Specific [place] (1.005-1.030) Urine Protein (Negative) Urine Glucose (UA) (Negative) Urine Ketones (Negative) Urine Occult Blood (Negative) Urine Nitrite (Negative) Urine Bilirubin (Negative) Urine Urobilinogen (0.2-1.0) Ur Leukocyte Esterase (Negative) Urine RBC (0-5) /hpf Urine WBC (0-5) /hpf Ur Epithelial Cells (0-5) /hpf Amorphous Sediment (NOT SEEN) /hpf Urine Bacteria (FEW) /hpf Urine Mucus (FEW) /hpf 06/05/19 Range/Units 05:00 WBC (3.98-10.04) K/mm3 RBC (3.98-5.22) M/mm3 Hgb (11.2-15.7) gm/L Hct (34.1-44.9) % MCV (79.4-94.8) fl MCH (25.6-32.2) pg MCHC (32.2-35.5) g/dl RDW Std Deviation (36.4-46.3) fL Plt Count (182-369) K/mm3 MPV (9.4-12.3) fl Neut % (Auto) (34.0-71.1) % Lymph % (Auto) (19.3-51.7) % [place] % (Auto) (4.7-12.5) % Eos % (Auto) (0.7-5.8) Baso % (Auto) (0.1-1.2) % Neut # (Auto) (1.56-6.13) K/mm3 Lymph # (Auto) (1.18-3.74) K/mm3 [place] # (Auto) (0.24-0.36) K/mm3 Eos # (Auto) (0.04-0.36) K/mm3 Baso # (Auto) (0.01-0.08) K/mm3 Neutrophils % (Manual) (40-60) % Band Neutrophils % (0-10) % Lymphocytes % (Manual) (20-40) % Atypical Lymphs % % Monocytes % (Manual) (2-10) % Eosinophils % (Manual) (0.7-5.8) % Basophils % (Manual) (0.1-1.2) Toxic Granulation Platelet Estimate Plt Morphology Comment Microcytosis RBC Morph Comment PT (9.7-12.0) SECONDS INR APTT (22-31) SECONDS Fibrinogen (187-446) mg/dL Fibrin Degrad Products < 5 ug/ml (<5) ug/mL Sodium (136-145) mEq/L Potassium (3.5-5.1) mEq/L Chloride (98-107) mEq/L Carbon Dioxide (21-32) mEq/L Anion Gap (5-15) BUN (7-18) mg/dL Creatinine (0.55-1.02) mg/dL Est Cr Clr Drug Dosing mL/min Estimated GFR (MDRD) (>60) mL/min BUN/Creatinine Ratio (14-18) Glucose (74-106) mg/dL Uric Acid (2.6-6.0) mg/dL Calcium (8.5-10.1) mg/dL Total Bilirubin (0.2-1.0) mg/dL AST (15-37) U/L ALT (14-59) U/L Alkaline Phosphatase (46-116) U/L Total Protein (6.4-8.2) g/dl Albumin (3.4-5.0) g/dl Globulin gm/dL Albumin/Globulin Ratio (1-2) Urine Color (Yellow) Urine Appearance (Clear) Urine pH (5.0-8.0) Ur Specific [place] (1.005-1.030) Urine Protein (Negative) Urine Glucose (UA) (Negative) Urine Ketones (Negative) Urine Occult Blood (Negative) Urine Nitrite (Negative) Urine Bilirubin (Negative) Urine Urobilinogen (0.2-1.0) Ur Leukocyte Esterase (Negative) Urine RBC (0-5) /hpf Urine WBC (0-5) /hpf Ur Epithelial Cells (0-5) /hpf Amorphous Sediment (NOT SEEN) /hpf Urine Bacteria (FEW) /hpf Urine Mucus (FEW) /hpf Result Diagrams: 06/05/19 05:00 06/05/19 05:00 Orders Last 24hrs: Active Orders 24 hr Category Date Time Status Patient Status [ADT] Routine ADT 06/05/19 08:22 Active Monitoring [RC] Q2HR Care 06/05/19 01:40 Active Notify Provider Consults [RC] ASDIRECTED Care 06/05/19 10:04 Active Up With Assistance [RC] ASDIRECTED Care 06/05/19 01:38 Active Vital Signs [RC] Q2HR Care 06/05/19 01:40 Active Consult to Physician [CONS] Routine Cons 06/05/19 08:00 Active 2 Gram Sodium Diet [DIET] Diet 06/05/19 Breakfast Active Brain wo Cont [MR] Routine Exams 06/05/19 08:16 Ordered Carotid Comp [US] Routine Exams 06/05/19 08:19 Ordered OB Follow Up 1st Gest [US] Routine Exams 06/05/19 07:00 Taken GLUCOSE 1HR GESTATIONAL SCREEN [CHEM] Routine Lab 06/05/19 10:00 Ordered Acetaminophen [Tylenol] Med 06/05/19 02:36 Active 650 mg PO Q4H PRN Lactated Ringers [Ringers, Lactated] 1,000 ml Med 06/05/19 01:45 Active IV ASDIRECTED Resuscitation Status Routine Resus Stat 06/05/19 01:37 Ordered Medication Orders Acetaminophen (Tylenol) 650 mg PO Q4H PRN PRN Reason: Pain Last Admin: 06/05/19 02:56 Dose: 650 mg Lactated Ringer's (Ringers, Lactated) 1,000 mls @ 125 mls/hr IV ASDIRECTED WILLIE
--- NOTE | 2019-06-05 13:24 | PCM.CONS ---
H&P History of Present Illness - General Date of Service: 06/05/19 Admit Problem/Dx: Patient Status Order with Admit Dx/Problem 06/05/19 00:44 Admission Status [Patient Status] [ADT] Routine 06/05/19 08:02 Patient Status [ADT] Routine 06/05/19 08:22 Patient Status [ADT] Routine Admission Diagnosis/Problem Admission Diagnosis/Problem - History of Present Illness Initial Comments - Free Text/Narative: 19-year-old female TANO 08/16/2019 at EGA 29 5/7 weeks being observed in L&D for a headache and dysarthria that started during dinner last night. She states that she's had a headache for approximate 7 days off and on. It waxes and wanes and at the time of this occurrence it was 7 out of 10. She states that she has poor recall of the time and developed a red face and was unable to talk. She could think at the time but was having difficulty expressing her speech. She laid down on the couch and ultimately EMS was called. Headache was located on the top of her head, base of her neck, and behind her eyes. She felt unsteady, dizzy, and foggy. She denies any headache history, but does state that she has a strong family history on her mother's side of migraines. Most of the women in her family have migraine headache disorder that developed during their pregnancies. Patient was brought to the emergency room and ultimately was given morphine 10 mg and Vistaril 50 mg. Over the night she slowly improved and now her headache is only 2 out of 10. Although she has poor recall of last night 's events currently she has no other neurological symptoms, except for headache. There was initially some concern about preeclampsia, but that has been ruled out by Dr. Ojeda in obstetrics. patient does state that she has been taking Tylenol regularly for her headaches. Initial blood work showed a white count of 14.28, hemoglobin of 10.7, hematocrit of 33, platelets of 364. PT was 9.9 with an INR of less than 0.93. APTT 25 with fibrinogen of 647. She had a normal chemistry panel except for a slightly low albumin of 2.3. UA was negative with no protein. Repeat CBC, CMP, coags, and urine showed no change. MRI of the brain without contrast was negative as well as carotid Doppler ultrasound. EEG is pending. Headache Pain Score (Numeric/FACES): 4 - Related Data Allergies/Adverse Reactions: Allergies Allergy/AdvReac Type Severity Reaction Status Date / Time codeine Allergy Hives Verified 06/05/19 01:19 Home Medications: Home Meds Pnv with Ca,No.72/Iron/Fa [ Vitamin with Low Iron] 1 each PO DAILY 06/05 [History] Past Medical History - Past Health History Medical/Surgical History: Denies Medical/Surgical History HEENT History: Reports: Allergic Rhinitis Other Gastrointestinal History: family history of colon anyrysm. HEAD WAITRESS History: Reports: Other OB/BYN History: patiet is Neurological History: Reports: Migraines Psychiatric History: Reports: Anxiety, Depression Endocrine/Metabolic History: Reports: Diabetes, Type II Other Endocrine/Metabolic History: Patient states insulin resitance and not DM. - Past Surgical History HEENT Surgical History: Reports: Oral Surgery, Tonsillectomy Social & Family History - Family History Family Medical History: Noncontributory Cardiac: Reports: Angina (maternal grandpa), Hypertension (mom) OBGYN: Reports: Other (See Below) (mother had preecclampsia with all of her children) Endocrine/Metabolic: Reports: Diabetes, type II (maternal and paternal grandparents) - Tobacco Use Smoking Status *Q: Former Smoker Used Tobacco, but Quit: Yes Month/Year Tobacco Last Used: 2017 - Caffeine Use Caffeine Use: Reports: Coffee Other Caffeine Use: One cup a day - Recreational Drug Use Recreational Drug Use: No - Living Situation & Occupation Living situation: Reports: Single, with Significant Other (Boyfriend) Occupation: Employed H&P Review of Systems - Review of Systems: Review Of Systems: ROS reveals no pertinent complaints other than HPI. Exam - Exam Exam: See Below - Vital Signs Vital Signs: Last Vital Signs Temp 98.3 F 06/05/19 04:45 Pulse 67 06/05/19 04:45 Resp 16 06/05/19 04:45 BP 122/45 L 06/05/19 04:45 Pulse Ox 96 06/05/19 04:45 Weight: 283 lb 8 oz - Exam Quality Assessment: No: Supplemental Oxygen General: Alert, Oriented, 4 HEENT: Conjunctiva Clear, EOMI, Hearing Intact, Mucosa Moist & [place], Nares Patent, Normal Nasal Septum, TMs Clear, PERRLA Neck: Supple, Trachea Midline, 2 Lungs: Clear to Auscultation, Normal Respiratory Effort Cardiovascular: Regular Rate, Regular Rhythm GI/Abdominal Exam: Normal Bowel Sounds, Soft, Non-Tender, No Organomegaly, No Distention, No Abnormal Bruit, No Mass, Pelvis Stable Extremities: Normal Inspection, Normal Range of Motion, Non-Tender, No Pedal Edema, Normal Capillary Refill Skin: Warm, Dry, Intact Neurological: Cranial Nerves Intact, Reflexes Equal Bilateral, Strength Equal Bilateral, Normal Gait, Sensation Intact. No: Focal Deficit Neuro Extensive - Mental Status: Alert, Oriented x3, Normal Mood/Affect, Normal Cognition, Memory Intact Neuro Extensive - Motor, Sensory, Reflexes: CN II-XII Intact, Normal Gait, Normal Reflexes. No: Dysarthria, Receptive Aphasia, Expressive Aphasia, Total Aphasia, Abnormal Finger to Nose, Abnormal Heel to [place], Abnormal Light Touch, Abnormal Motor Psychiatric: Alert, Normal Affect, Normal Mood - Patient Data Lab Results Last 24 hrs: Laboratory Results - last 24 hr 06/04/19 06/04/19 06/04/19 Range/Units 22:23 22:55 22:55 WBC 14.28 H (3.98-10.04) K/mm3 RBC 3.98 (3.98-5.22) M/mm3 Hgb 10.7 L D (11.2-15.7) gm/L Hct 33.0 L (34.1-44.9) % MCV 82.9 D (79.4-94.8) fl MCH 26.9 (25.6-32.2) pg MCHC 32.4 (32.2-35.5) g/dl RDW Std Deviation 39.3 (36.4-46.3) fL Plt Count 364 (182-369) K/mm3 MPV 10.1 (9.4-12.3) fl Neut % (Auto) (34.0-71.1) % Lymph % (Auto) (19.3-51.7) % [place] % (Auto) (4.7-12.5) % Eos % (Auto) (0.7-5.8) Baso % (Auto) (0.1-1.2) % Neut # (Auto) (1.56-6.13) K/mm3 Lymph # (Auto) (1.18-3.74) K/mm3 [place] # (Auto) (0.24-0.36) K/mm3 Eos # (Auto) (0.04-0.36) K/mm3 Baso # (Auto) (0.01-0.08) K/mm3 Neutrophils % (Manual) 67 H (40-60) % Band Neutrophils % 0 (0-10) % Lymphocytes % (Manual) 27 (20-40) % Atypical Lymphs % 0 % Monocytes % (Manual) 5 (2-10) % Eosinophils % (Manual) 1 (0.7-5.8) % Basophils % (Manual) 0 L (0.1-1.2) Toxic Granulation 1+ slight Platelet Estimate Adequate Plt Morphology Comment Normal Microcytosis 1+ slight RBC Morph Comment Not Reportable PT (9.7-12.0) SECONDS INR APTT (22-31) SECONDS Fibrinogen (187-446) mg/dL Fibrin Degrad Products (<5) ug/mL Sodium 138 (136-145) mEq/L Potassium 3.7 (3.5-5.1) mEq/L Chloride 105 (98-107) mEq/L Carbon Dioxide 24 (21-32) mEq/L Anion Gap 12.7 (5-15) BUN 10 (7-18) mg/dL Creatinine 0.8 (0.55-1.02) mg/dL Est Cr Clr Drug Dosing 113.16 mL/min Estimated GFR (MDRD) > 60 (>60) mL/min BUN/Creatinine Ratio 12.5 L (14-18) Glucose 102 (74-106) mg/dL Hemoglobin A1c (4.50-6.20) % Gestat Glucose Screen (<140) mg/dL Uric Acid 4.2 (2.6-6.0) mg/dL Calcium 8.8 (8.5-10.1) mg/dL Total Bilirubin 0.2 (0.2-1.0) mg/dL AST 15 (15-37) U/L ALT 33 (14-59) U/L Alkaline Phosphatase 98 (46-116) U/L Total Protein 6.6 (6.4-8.2) g/dl Albumin 2.3 L (3.4-5.0) g/dl Globulin 4.3 gm/dL Albumin/Globulin Ratio 0.5 L (1-2) Urine Color Yellow (Yellow) Urine Appearance Clear (Clear) Urine pH 7.0 (5.0-8.0) Ur Specific [place] 1.010 (1.005-1.030) Urine Protein Negative (Negative) Urine Glucose (UA) Negative (Negative) Urine Ketones Negative (Negative) Urine Occult Blood Negative (Negative) Urine Nitrite Negative (Negative) Urine Bilirubin Negative (Negative) Urine Urobilinogen 0.2 (0.2-1.0) Ur Leukocyte Esterase Negative (Negative) Urine RBC 0-5 (0-5) /hpf Urine WBC 0-5 (0-5) /hpf Ur Epithelial Cells 0-5 (0-5) /hpf Amorphous Sediment (NOT SEEN) /hpf Urine Bacteria Few (FEW) /hpf Urine Mucus Not seen (FEW) /hpf 06/04/19 06/04/19 06/05/19 Range/Units 22:55 22:55 02:18 WBC (3.98-10.04) K/mm3 RBC (3.98-5.22) M/mm3 Hgb (11.2-15.7) gm/L Hct (34.1-44.9) % MCV (79.4-94.8) fl MCH (25.6-32.2) pg MCHC (32.2-35.5) g/dl RDW Std Deviation (36.4-46.3) fL Plt Count (182-369) K/mm3 MPV (9.4-12.3) fl Neut % (Auto) (34.0-71.1) % Lymph % (Auto) (19.3-51.7) % [place] % (Auto) (4.7-12.5) % Eos % (Auto) (0.7-5.8) Baso % (Auto) (0.1-1.2) % Neut # (Auto) (1.56-6.13) K/mm3 Lymph # (Auto) (1.18-3.74) K/mm3 [place] # (Auto) (0.24-0.36) K/mm3 Eos # (Auto) (0.04-0.36) K/mm3 Baso # (Auto) (0.01-0.08) K/mm3 Neutrophils % (Manual) (40-60) % Band Neutrophils % (0-10) % Lymphocytes % (Manual) (20-40) % Atypical Lymphs % % Monocytes % (Manual) (2-10) % Eosinophils % (Manual) (0.7-5.8) % Basophils % (Manual) (0.1-1.2) Toxic Granulation Platelet Estimate Plt Morphology Comment Microcytosis RBC Morph Comment PT 9.9 (9.7-12.0) SECONDS INR < 0.93 APTT 25 (22-31) SECONDS Fibrinogen 647 H (187-446) mg/dL Fibrin Degrad Products < 5 ug/ml (<5) ug/mL Sodium (136-145) mEq/L Potassium (3.5-5.1) mEq/L Chloride (98-107) mEq/L Carbon Dioxide (21-32) mEq/L Anion Gap (5-15) BUN (7-18) mg/dL Creatinine (0.55-1.02) mg/dL Est Cr Clr Drug Dosing mL/min Estimated GFR (MDRD) (>60) mL/min BUN/Creatinine Ratio (14-18) Glucose (74-106) mg/dL Hemoglobin A1c (4.50-6.20) % Gestat Glucose Screen (<140) mg/dL Uric Acid (2.6-6.0) mg/dL Calcium (8.5-10.1) mg/dL Total Bilirubin (0.2-1.0) mg/dL AST (15-37) U/L ALT (14-59) U/L Alkaline Phosphatase (46-116) U/L Total Protein (6.4-8.2) g/dl Albumin (3.4-5.0) g/dl Globulin gm/dL Albumin/Globulin Ratio (1-2) Urine Color Yellow (Yellow) Urine Appearance Clear (Clear) Urine pH 7.0 (5.0-8.0) Ur Specific [place] 1.020 (1.005-1.030) Urine Protein Negative (Negative) Urine Glucose (UA) Negative (Negative) Urine Ketones Negative (Negative) Urine Occult Blood Negative (Negative) Urine Nitrite Negative (Negative) Urine Bilirubin Negative (Negative) Urine Urobilinogen 0.2 (0.2-1.0) Ur Leukocyte Esterase Negative (Negative) Urine RBC 0-5 (0-5) /hpf Urine WBC 0-5 (0-5) /hpf Ur Epithelial Cells 0-5 (0-5) /hpf Amorphous Sediment Few H (NOT SEEN) /hpf Urine Bacteria Rare (FEW) /hpf Urine Mucus Not seen (FEW) /hpf 06/05/19 06/05/19 06/05/19 Range/Units 05:00 05:00 05:00 WBC 13.36 H (3.98-10.04) K/mm3 RBC 3.64 L (3.98-5.22) M/mm3 Hgb 9.7 L (11.2-15.7) gm/L Hct 30.3 L (34.1-44.9) % MCV 83.2 (79.4-94.8) fl MCH 26.6 (25.6-32.2) pg MCHC 32.0 L (32.2-35.5) g/dl RDW Std Deviation 39.1 (36.4-46.3) fL Plt Count 341 (182-369) K/mm3 MPV 9.9 (9.4-12.3) fl Neut % (Auto) 68.3 (34.0-71.1) % Lymph % (Auto) 22.1 (19.3-51.7) % [place] % (Auto) 7.4 (4.7-12.5) % Eos % (Auto) 1.7 (0.7-5.8) Baso % (Auto) 0.1 (0.1-1.2) % Neut # (Auto) 9.12 H (1.56-6.13) K/mm3 Lymph # (Auto) 2.95 (1.18-3.74) K/mm3 [place] # (Auto) 0.99 H (0.24-0.36) K/mm3 Eos # (Auto) 0.23 (0.04-0.36) K/mm3 Baso # (Auto) 0.02 (0.01-0.08) K/mm3 Neutrophils % (Manual) (40-60) % Band Neutrophils % (0-10) % Lymphocytes % (Manual) (20-40) % Atypical Lymphs % % Monocytes % (Manual) (2-10) % Eosinophils % (Manual) (0.7-5.8) % Basophils % (Manual) (0.1-1.2) Toxic Granulation Platelet Estimate Plt Morphology Comment Microcytosis RBC Morph Comment PT 10.3 (9.7-12.0) SECONDS INR 0.94 APTT (22-31) SECONDS Fibrinogen 546 H (187-446) mg/dL Fibrin Degrad Products (<5) ug/mL Sodium 137 (136-145) mEq/L Potassium 3.8 (3.5-5.1) mEq/L Chloride 104 (98-107) mEq/L Carbon Dioxide 21 (21-32) mEq/L Anion Gap 15.8 H (5-15) BUN 10 (7-18) mg/dL Creatinine 0.8 (0.55-1.02) mg/dL Est Cr Clr Drug Dosing 113.16 mL/min Estimated GFR (MDRD) > 60 (>60) mL/min BUN/Creatinine Ratio 12.5 L (14-18) Glucose 103 (74-106) mg/dL Hemoglobin A1c (4.50-6.20) % Gestat Glucose Screen (<140) mg/dL Uric Acid 4.4 (2.6-6.0) mg/dL Calcium 8.2 L (8.5-10.1) mg/dL Total Bilirubin 0.2 (0.2-1.0) mg/dL AST 15 (15-37) U/L ALT 27 (14-59) U/L Alkaline Phosphatase 87 (46-116) U/L Total Protein 6.0 L (6.4-8.2) g/dl Albumin 1.9 L (3.4-5.0) g/dl Globulin 4.1 gm/dL Albumin/Globulin Ratio 0.5 L (1-2) Urine Color (Yellow) Urine Appearance (Clear) Urine pH (5.0-8.0) Ur Specific [place] (1.005-1.030) Urine Protein (Negative) Urine Glucose (UA) (Negative) Urine Ketones (Negative) Urine Occult Blood (Negative) Urine Nitrite (Negative) Urine Bilirubin (Negative) Urine Urobilinogen (0.2-1.0) Ur Leukocyte Esterase (Negative) Urine RBC (0-5) /hpf Urine WBC (0-5) /hpf Ur Epithelial Cells (0-5) /hpf Amorphous Sediment (NOT SEEN) /hpf Urine Bacteria (FEW) /hpf Urine Mucus (FEW) /hpf 06/05/19 06/05/19 06/05/19 Range/Units 05:00 11:07 11:07 WBC (3.98-10.04) K/mm3 RBC (3.98-5.22) M/mm3 Hgb (11.2-15.7) gm/L Hct (34.1-44.9) % MCV (79.4-94.8) fl MCH (25.6-32.2) pg MCHC (32.2-35.5) g/dl RDW Std Deviation (36.4-46.3) fL Plt Count (182-369) K/mm3 MPV (9.4-12.3) fl Neut % (Auto) (34.0-71.1) % Lymph % (Auto) (19.3-51.7) % [place] % (Auto) (4.7-12.5) % Eos % (Auto) (0.7-5.8) Baso % (Auto) (0.1-1.2) % Neut # (Auto) (1.56-6.13) K/mm3 Lymph # (Auto) (1.18-3.74) K/mm3 [place] # (Auto) (0.24-0.36) K/mm3 Eos # (Auto) (0.04-0.36) K/mm3 Baso # (Auto) (0.01-0.08) K/mm3 Neutrophils % (Manual) (40-60) % Band Neutrophils % (0-10) % Lymphocytes % (Manual) (20-40) % Atypical Lymphs % % Monocytes % (Manual) (2-10) % Eosinophils % (Manual) (0.7-5.8) % Basophils % (Manual) (0.1-1.2) Toxic Granulation Platelet Estimate Plt Morphology Comment Microcytosis RBC Morph Comment PT (9.7-12.0) SECONDS INR APTT (22-31) SECONDS Fibrinogen (187-446) mg/dL Fibrin Degrad Products < 5 ug/ml (<5) ug/mL Sodium (136-145) mEq/L Potassium (3.5-5.1) mEq/L Chloride (98-107) mEq/L Carbon Dioxide (21-32) mEq/L Anion Gap (5-15) BUN (7-18) mg/dL Creatinine (0.55-1.02) mg/dL Est Cr Clr Drug Dosing mL/min Estimated GFR (MDRD) (>60) mL/min BUN/Creatinine Ratio (14-18) Glucose (74-106) mg/dL Hemoglobin A1c 5.00 (4.50-6.20) % Gestat Glucose Screen 143 (<140) mg/dL Uric Acid (2.6-6.0) mg/dL Calcium (8.5-10.1) mg/dL Total Bilirubin (0.2-1.0) mg/dL AST (15-37) U/L ALT (14-59) U/L Alkaline Phosphatase (46-116) U/L Total Protein (6.4-8.2) g/dl Albumin (3.4-5.0) g/dl Globulin gm/dL Albumin/Globulin Ratio (1-2) Urine Color (Yellow) Urine Appearance (Clear) Urine pH (5.0-8.0) Ur Specific [place] (1.005-1.030) Urine Protein (Negative) Urine Glucose (UA) (Negative) Urine Ketones (Negative) Urine Occult Blood (Negative) Urine Nitrite (Negative) Urine Bilirubin (Negative) Urine Urobilinogen (0.2-1.0) Ur Leukocyte Esterase (Negative) Urine RBC (0-5) /hpf Urine WBC (0-5) /hpf Ur Epithelial Cells (0-5) /hpf Amorphous Sediment (NOT SEEN) /hpf Urine Bacteria (FEW) /hpf Urine Mucus (FEW) /hpf Result Diagrams: 06/05/19 05:00 06/05/19 05:00 Consult PN Assessment/Plan Procedures: Procedures ASSAY OF LIPASE (07/20/15) ASSAY OF PROGESTERONE (12/24/18) BL SMEAR W/DIFF WBC COUNT (07/14/18) BLOOD TYPING SEROLOGIC ABO (02/04/19) BLOOD TYPING SEROLOGIC RH(D) (02/04/19) C-REACTIVE PROTEIN (07/20/15) CHORIONIC GONADOTROPIN TEST (12/24/18) COMPLETE CBC AUTOMATED (07/14/18) COMPLETE CBC W/AUTO DIFF WBC (02/04/19) COMPREHEN METABOLIC PANEL (07/14/18) CULTURE AEROBIC IDENTIFY (02/01/19) DIAGNOSTIC ANOSCOPY SPX (07/20/15) EMERGENCY DEPT VISIT (02/18/19) EMERGENCY DEPT VISIT (02/01/19) EMERGENCY DEPT VISIT (07/14/18) EMERGENCY DEPT VISIT (07/11/18) EMERGENCY DEPT VISIT (04/27/18) EMERGENCY DEPT VISIT (07/20/15) NON-STRESS TEST (05/30/19) HYDRATE IV INFUSION ADD-ON (07/14/18) OB US >/= 14 WKS SNGL FETUS (03/25/19) RBC ANTIBODY SCREEN (02/04/19) REMOVE IMPACTED EAR WAX UNI (02/18/19) ROUTINE VENIPUNCTURE (12/24/18) SYPHILIS TEST NON-TREP QUAL (02/04/19) THER/PROPH/DIAG INJ IV PUSH (07/14/18) THER/PROPH/DIAG INJ SC/IM (07/11/18) TRANSVAGINAL US OBSTETRIC (12/28/18) TREATMENT OF MISCARRIAGE (07/14/18) TX/PRO/DX INJ NEW DRUG ADDON (07/14/18) URINALYSIS AUTO W/O SCOPE (05/30/19) URINALYSIS AUTO W/SCOPE (02/01/19) URINE CULTURE/COLONY COUNT (02/04/19) URINE TEST (05/24/15) X-RAY EXAM OF ABDOMEN (05/24/15) Problem List Initiated/Reviewed/Updated: Yes Plan: Assessment * 19-year-old female TANO 08/16/2019 at EGA 29 5/7 weeks * Headache disorder likely atypical migraine with rebound headache Plan * Patient's headache currently is much better and she has had a negative workup so far. EEG is still pending. * Due to patient's strong family history makes it likely has had an atypical migraine. * regular use of acetaminophen could also be causing some rebound headache. there is also some tension-type components. * Assuming the EEG is negative I would do no further workup at this time. * If she has recurrence of his headache she would benefit from neurological consultation. * recommend trying to avoid regular use of any analgesic. * If necessary she can use acetaminophen 650 to 1,000 mg and metoclopramide 10 mg OR butalbital acetaminophen caffeine. Butalbital should be limited to only for 5 days per month. Patient is allergic to codeine so I would not recommend treatment with codeine. Caffeine doses and medications for migraine range from 40-50 mg therefore is unlikely to be associated with adverse outcomes. * Thank you for allowing me to participate in the care of this patient. If you have any questions please contact me.
--- NOTE | 2019-06-05 13:46 | PCM.SN ---
- Free Text/Narrative Note: NST Reactive this morning. Patient states headache improved 7/10 down to 2/10.
--- NOTE | 2019-06-05 14:54 | PCM.DCSUM1 ---
Discharge Summary - Hospital Course Free Text/Narrative:: Patient is feeling better. Headache has almost completely resolved. Will take 650-1000 g Tylenol at home. Medications noted on hospital this consult and will be started if necessary. Patient had 1 hour OB glucose screen 143 will undergo 3 hour glucose tolerance test Monday06/12/19 beginning at 0745 hrs. nothing by mouth after midnight the night before the test. Rest at home quite room. Cautioned concerning driving not she is having this problem because the possibility of rectum hurting yourself baby and other people. Patient also noted to be anemic and will take vitamins at breakfast iron and vitamin C at lunch supper and bedtime. Sitter repeat CBC in 4 weeks. Has follow-up OB appointment at 0900 hrs. Monday06/12/19. MRI of the head without contrast revealed brain: No acute infarct. No hemorrhage. No significant white matter disease. No edema. Ventricles: Normal. No ventriculomegaly. Bones/joints: Unremarkable. Soft tissues: Normal. Sinuses: No acute sinusitis Mastoid air cells: Normal as visualized no mastoid effusion. Orbits: Unremarkable. Impression: Negative examination. Ultrasound duplex bilateral extracranial arteries. Findings: Right common carotid artery: Unremarkable. No occlusion or stenosis. Waveforms are normal. Right internal carotid artery. Unremarkable. No occlusion or stenosis. Waveforms are normal. Right ICA/CCA ratio: Within normal limits Right external carotid artery: No stenosis and the origin. Right vertebral artery: Unremarkable. Antegrade flow. Impression: Unremarkable. No carotid arterial stenosis. OB ultrasound. Findings: There is a single intrauterine gestation in cephalic presentation. heart rate measures 1 20 bpm. Limited anatomic detail demonstrates an unremarkable appearance of the urinary bladder and 4 chamber heart. There is pelviectasis bilaterally, with renal pelvic diameter measuring 4.8 mm on the left and 7.6 mm on the right. Estimated gestational age is 29 weeks 4 days, based on measurements on this ultrasound. Estimated weight 1340 g (19th percentile based on last menstrual period; 23rd percentile based on ultrasound days). The placenta is posterior, without demonstrated previa or abruption. The amnionic fluid index measures 12.3 cm. Cervix is closed and measures 2.7 cm in length.: #1. Single viable intrauterine gestation. #2. Bilateral pyelectasis as above. Recommend follow-up. (Will consider repeat ultrasound at 34-36 weeks.) Nonstress test reactive this morning and this afternoon. Patient has appointment for follow-up 9 AM Monday06/12/19. HPI Initial Comments: Patient is feeling better. Headache has almost completely resolved. Will take 650-1000 g Tylenol at home. Medications noted on hospital this consult and will be started if necessary. Patient had 1 hour OB glucose screen 143 will undergo 3 hour glucose tolerance test Monday06/12/19 beginning at 0745 hrs. nothing by mouth after midnight the night before the test. Rest at home quite room. Cautioned concerning driving not she is having this problem because the possibility of rectum hurting yourself baby and other people. Patient also noted to be anemic and will take vitamins at breakfast iron and vitamin C at lunch supper and bedtime. Sitter repeat CBC in 4 weeks. Has follow-up OB appointment at 0900 hrs. Monday06/12/19. MRI of the head without contrast revealed brain: No acute infarct. No hemorrhage. No significant white matter disease. No edema. Ventricles: Normal. No ventriculomegaly. Bones/joints: Unremarkable. Soft tissues: Normal. Sinuses: No acute sinusitis Mastoid air cells: Normal as visualized no mastoid effusion. Orbits: Unremarkable. Impression: Negative examination. Ultrasound duplex bilateral extracranial arteries. Findings: Right common carotid artery: Unremarkable. No occlusion or stenosis. Waveforms are normal. Right internal carotid artery. Unremarkable. No occlusion or stenosis. Waveforms are normal. Right ICA/CCA ratio: Within normal limits Right external carotid artery: No stenosis and the origin. Right vertebral artery: Unremarkable. Antegrade flow. Impression: Unremarkable. No carotid arterial stenosis. OB ultrasound. Findings: There is a single intrauterine gestation in cephalic presentation. heart rate measures 1 20 bpm. Limited anatomic detail demonstrates an unremarkable appearance of the urinary bladder and 4 chamber heart. There is pelviectasis bilaterally, with renal pelvic diameter measuring 4.8 mm on the left and 7.6 mm on the right. Estimated gestational age is 29 weeks 4 days, based on measurements on this ultrasound. Estimated weight 1340 g (19th percentile based on last menstrual period; 23rd percentile based on ultrasound days). The placenta is posterior, without demonstrated previa or abruption. The amnionic fluid index measures 12.3 cm. Cervix is closed and measures 2.7 cm in length.: #1. Single viable intrauterine gestation. #2. Bilateral pyelectasis as above. Recommend follow-up. (Will consider repeat ultrasound at 34-36 weeks.) Nonstress test reactive this morning and this afternoon. Patient has appointment for follow-up 9 AM Monday06/12/19. Brief History: Patient is feeling better. Headache has almost completely resolved. Will take 650-1000 g Tylenol at home. Medications noted on hospital this consult and will be started if necessary. Patient had 1 hour OB glucose screen 143 will undergo 3 hour glucose tolerance test Monday06/12/19 beginning at 0745 hrs. nothing by mouth after midnight the night before the test. Rest at home quite room. Cautioned concerning driving not she is having this problem because the possibility of rectum hurting yourself baby and other people. Patient also noted to be anemic and will take vitamins at breakfast iron and vitamin C at lunch supper and bedtime. Sitter repeat CBC in 4 weeks. Has follow-up OB appointment at 0900 hrs. Monday06/12/19. MRI of the head without contrast revealed brain: No acute infarct. No hemorrhage. No significant white matter disease. No edema. Ventricles: Normal. No ventriculomegaly. Bones/joints: Unremarkable. Soft tissues: Normal. Sinuses: No acute sinusitis. Mastoid air cells: Normal as visualized no mastoid effusion. Orbits: Unremarkable. Impression: Negative examination. Ultrasound duplex bilateral extracranial arteries. Findings: Right common carotid artery: Unremarkable. No occlusion or stenosis. Waveforms are normal. Right internal carotid artery. Unremarkable. No occlusion or stenosis. Waveforms are normal. Right ICA/CCA ratio: Within normal limits. Right external carotid artery: No stenosis and the origin. Right vertebral artery: Unremarkable. Antegrade flow. Impression: Unremarkable. No carotid arterial stenosis. OB ultrasound. Findings: There is a single intrauterine gestation in cephalic presentation. heart rate measures 1 20 bpm. Limited anatomic detail demonstrates an unremarkable appearance of the urinary bladder and 4 chamber heart. There is pelviectasis bilaterally, with renal pelvic diameter measuring 4.8 mm on the left and 7.6 mm on the right. Estimated gestational age is 29 weeks 4 days, based on measurements on this ultrasound. Estimated weight 1340 g ( 19th percentile based on last menstrual period; 23rd percentile based on ultrasound days). The placenta is posterior, without demonstrated previa or abruption. The amnionic fluid index measures 12.3 cm. Cervix is closed and measures 2.7 cm in length.: #1. Single viable intrauterine gestation. #2. Bilateral pyelectasis as above. Recommend follow-up. (Will consider repeat ultrasound at 34-36 weeks.). Nonstress test reactive this morning and this afternoon. Patient has appointment for follow-up 9 AM Monday06/12/19. - Discharge Data Discharge Date: 06/05/19 Discharge Disposition: Home, Self-Care 01 Condition: Good - Referral to Home Health Primary Care Physician: Julio C Ojeda MD - Discharge Diagnosis/Problem(s) (1) 29 weeks gestation of SNOMED Code(s): 87276793 ICD Code: Z3A.29 - 29 WEEKS GESTATION OF Status: Acute Current Visit: Yes (2) Anemia affecting in third trimester SNOMED Code(s): 81729475, 32690560 ICD Code: O99.013 - ANEMIA COMPLICATING , THIRD TRIMESTER Status: Acute Current Visit: Yes (3) Elevated blood pressure affecting in third trimester, antepartum SNOMED Code(s): 44733946, 27182028, 340681563 ICD Code: O16.3 - UNSPECIFIED MATERNAL HYPERTENSION, THIRD TRIMESTER Status : Acute Current Visit: Yes (4) Headache SNOMED Code(s): 62405086 ICD Code: R51 - HEADACHE Status: Acute Current Visit: Yes Onset Date: ~ 05/31/19 Qualifiers: Headache type: new daily persistent Qualified Code(s): G44.52 - New daily persistent headache (NDPH) - Patient Summary/Data Complications: None Consults: Consultations 06/05/19 08:00 Consult to Physician [CONS] Routine - Patient Instructions Driving: Do Not Drive ([place] 48 hours) Showering/Bathing: May Shower Notify Provider of: Fever, Increased Pain, Swelling and Redness, Drainage, Nausea and/or Vomiting - Discharge Plan *PRESCRIPTION DRUG MONITORING PROGRAM REVIEWED*: Not Applicable *COPY OF PRESCRIPTION DRUG MONITORING REPORT IN PATIENT ANTONIA: Not Applicable Prescriptions/Med Rec: Acetaminophen 650 mg PO Q6H #60 capsule Iron,Carbonyl/Ascorbic Acid [Iron 100-Vitamin C Tablet] 1 each PO TID #90 tablet Home Medications: Home Meds Acetaminophen 650 mg PO Q6H #60 capsule 06/05/19 [Rx] Iron,Carbonyl/Ascorbic Acid [Iron 100-Vitamin C Tablet] 1 each PO TID #90 tablet 06/05/19 [Rx] Pnv with Ca,No.72/Iron/Fa [ Vitamin Plus Low Iron] 1 each PO DAILY 06/05 [History] Forms: ED Department Discharge Referrals: Julio C Ojeda MD [Primary Care Provider] - (FOLLOW UP ON Monday FOR 3 HR GLUCOSE TESTING. ) - Discharge Summary/Plan Comment DC Time >30 min.: No - Patient Data Vitals - Most Recent: Last Vital Signs Temp 98.3 F 06/05/19 04:45 Pulse 67 06/05/19 04:45 Resp 16 06/05/19 04:45 BP 122/45 L 06/05/19 04:45 Pulse Ox 96 06/05/19 04:45 Weight - Most Recent: 283 lb 8 oz I&O - Last 24 hours: Intake & Output 06/04/19 06/05/19 06/05/19 22:59 06:59 14:59 Intake Total 775 0 Output Total 600 Balance 175 0 Lab Results - Last 24 hrs: Laboratory Results - last 24 hr 06/04/19 06/04/19 06/04/19 Range/Units 22:23 22:55 22:55 WBC 14.28 H (3.98-10.04) K/mm3 RBC 3.98 (3.98-5.22) M/mm3 Hgb 10.7 L D (11.2-15.7) gm/L Hct 33.0 L (34.1-44.9) % MCV 82.9 D (79.4-94.8) fl MCH 26.9 (25.6-32.2) pg MCHC 32.4 (32.2-35.5) g/dl RDW Std Deviation 39.3 (36.4-46.3) fL Plt Count 364 (182-369) K/mm3 MPV 10.1 (9.4-12.3) fl Neut % (Auto) (34.0-71.1) % Lymph % (Auto) (19.3-51.7) % [place] % (Auto) (4.7-12.5) % Eos % (Auto) (0.7-5.8) Baso % (Auto) (0.1-1.2) % Neut # (Auto) (1.56-6.13) K/mm3 Lymph # (Auto) (1.18-3.74) K/mm3 [place] # (Auto) (0.24-0.36) K/mm3 Eos # (Auto) (0.04-0.36) K/mm3 Baso # (Auto) (0.01-0.08) K/mm3 Neutrophils % (Manual) 67 H (40-60) % Band Neutrophils % 0 (0-10) % Lymphocytes % (Manual) 27 (20-40) % Atypical Lymphs % 0 % Monocytes % (Manual) 5 (2-10) % Eosinophils % (Manual) 1 (0.7-5.8) % Basophils % (Manual) 0 L (0.1-1.2) Toxic Granulation 1+ slight Platelet Estimate Adequate Plt Morphology Comment Normal Microcytosis 1+ slight RBC Morph Comment Not Reportable PT (9.7-12.0) SECONDS INR APTT (22-31) SECONDS Fibrinogen (187-446) mg/dL Fibrin Degrad Products (<5) ug/mL Sodium 138 (136-145) mEq/L Potassium 3.7 (3.5-5.1) mEq/L Chloride 105 (98-107) mEq/L Carbon Dioxide 24 (21-32) mEq/L Anion Gap 12.7 (5-15) BUN 10 (7-18) mg/dL Creatinine 0.8 (0.55-1.02) mg/dL Est Cr Clr Drug Dosing 113.16 mL/min Estimated GFR (MDRD) > 60 (>60) mL/min BUN/Creatinine Ratio 12.5 L (14-18) Glucose 102 (74-106) mg/dL Hemoglobin A1c (4.50-6.20) % Gestat Glucose Screen (<140) mg/dL Uric Acid 4.2 (2.6-6.0) mg/dL Calcium 8.8 (8.5-10.1) mg/dL Total Bilirubin 0.2 (0.2-1.0) mg/dL AST 15 (15-37) U/L ALT 33 (14-59) U/L Alkaline Phosphatase 98 (46-116) U/L Total Protein 6.6 (6.4-8.2) g/dl Albumin 2.3 L (3.4-5.0) g/dl Globulin 4.3 gm/dL Albumin/Globulin Ratio 0.5 L (1-2) Urine Color Yellow (Yellow) Urine Appearance Clear (Clear) Urine pH 7.0 (5.0-8.0) Ur Specific [place] 1.010 (1.005-1.030) Urine Protein Negative (Negative) Urine Glucose (UA) Negative (Negative) Urine Ketones Negative (Negative) Urine Occult Blood Negative (Negative) Urine Nitrite Negative (Negative) Urine Bilirubin Negative (Negative) Urine Urobilinogen 0.2 (0.2-1.0) Ur Leukocyte Esterase Negative (Negative) Urine RBC 0-5 (0-5) /hpf Urine WBC 0-5 (0-5) /hpf Ur Epithelial Cells 0-5 (0-5) /hpf Amorphous Sediment (NOT SEEN) /hpf Urine Bacteria Few (FEW) /hpf Urine Mucus Not seen (FEW) /hpf 06/04/19 06/04/19 06/05/19 Range/Units 22:55 22:55 02:18 WBC (3.98-10.04) K/mm3 RBC (3.98-5.22) M/mm3 Hgb (11.2-15.7) gm/L Hct (34.1-44.9) % MCV (79.4-94.8) fl MCH (25.6-32.2) pg MCHC (32.2-35.5) g/dl RDW Std Deviation (36.4-46.3) fL Plt Count (182-369) K/mm3 MPV (9.4-12.3) fl Neut % (Auto) (34.0-71.1) % Lymph % (Auto) (19.3-51.7) % [place] % (Auto) (4.7-12.5) % Eos % (Auto) (0.7-5.8) Baso % (Auto) (0.1-1.2) % Neut # (Auto) (1.56-6.13) K/mm3 Lymph # (Auto) (1.18-3.74) K/mm3 [place] # (Auto) (0.24-0.36) K/mm3 Eos # (Auto) (0.04-0.36) K/mm3 Baso # (Auto) (0.01-0.08) K/mm3 Neutrophils % (Manual) (40-60) % Band Neutrophils % (0-10) % Lymphocytes % (Manual) (20-40) % Atypical Lymphs % % Monocytes % (Manual) (2-10) % Eosinophils % (Manual) (0.7-5.8) % Basophils % (Manual) (0.1-1.2) Toxic Granulation Platelet Estimate Plt Morphology Comment Microcytosis RBC Morph Comment PT 9.9 (9.7-12.0) SECONDS INR < 0.93 APTT 25 (22-31) SECONDS Fibrinogen 647 H (187-446) mg/dL Fibrin Degrad Products < 5 ug/ml (<5) ug/mL Sodium (136-145) mEq/L Potassium (3.5-5.1) mEq/L Chloride (98-107) mEq/L Carbon Dioxide (21-32) mEq/L Anion Gap (5-15) BUN (7-18) mg/dL Creatinine (0.55-1.02) mg/dL Est Cr Clr Drug Dosing mL/min Estimated GFR (MDRD) (>60) mL/min BUN/Creatinine Ratio (14-18) Glucose (74-106) mg/dL Hemoglobin A1c (4.50-6.20) % Gestat Glucose Screen (<140) mg/dL Uric Acid (2.6-6.0) mg/dL Calcium (8.5-10.1) mg/dL Total Bilirubin (0.2-1.0) mg/dL AST (15-37) U/L ALT (14-59) U/L Alkaline Phosphatase (46-116) U/L Total Protein (6.4-8.2) g/dl Albumin (3.4-5.0) g/dl Globulin gm/dL Albumin/Globulin Ratio (1-2) Urine Color Yellow (Yellow) Urine Appearance Clear (Clear) Urine pH 7.0 (5.0-8.0) Ur Specific [place] 1.020 (1.005-1.030) Urine Protein Negative (Negative) Urine Glucose (UA) Negative (Negative) Urine Ketones Negative (Negative) Urine Occult Blood Negative (Negative) Urine Nitrite Negative (Negative) Urine Bilirubin Negative (Negative) Urine Urobilinogen 0.2 (0.2-1.0) Ur Leukocyte Esterase Negative (Negative) Urine RBC 0-5 (0-5) /hpf Urine WBC 0-5 (0-5) /hpf Ur Epithelial Cells 0-5 (0-5) /hpf Amorphous Sediment Few H (NOT SEEN) /hpf Urine Bacteria Rare (FEW) /hpf Urine Mucus Not seen (FEW) /hpf 06/05/19 06/05/19 06/05/19 Range/Units 05:00 05:00 05:00 WBC 13.36 H (3.98-10.04) K/mm3 RBC 3.64 L (3.98-5.22) M/mm3 Hgb 9.7 L (11.2-15.7) gm/L Hct 30.3 L (34.1-44.9) % MCV 83.2 (79.4-94.8) fl MCH 26.6 (25.6-32.2) pg MCHC 32.0 L (32.2-35.5) g/dl RDW Std Deviation 39.1 (36.4-46.3) fL Plt Count 341 (182-369) K/mm3 MPV 9.9 (9.4-12.3) fl Neut % (Auto) 68.3 (34.0-71.1) % Lymph % (Auto) 22.1 (19.3-51.7) % [place] % (Auto) 7.4 (4.7-12.5) % Eos % (Auto) 1.7 (0.7-5.8) Baso % (Auto) 0.1 (0.1-1.2) % Neut # (Auto) 9.12 H (1.56-6.13) K/mm3 Lymph # (Auto) 2.95 (1.18-3.74) K/mm3 [place] # (Auto) 0.99 H (0.24-0.36) K/mm3 Eos # (Auto) 0.23 (0.04-0.36) K/mm3 Baso # (Auto) 0.02 (0.01-0.08) K/mm3 Neutrophils % (Manual) (40-60) % Band Neutrophils % (0-10) % Lymphocytes % (Manual) (20-40) % Atypical Lymphs % % Monocytes % (Manual) (2-10) % Eosinophils % (Manual) (0.7-5.8) % Basophils % (Manual) (0.1-1.2) Toxic Granulation Platelet Estimate Plt Morphology Comment Microcytosis RBC Morph Comment PT 10.3 (9.7-12.0) SECONDS INR 0.94 APTT (22-31) SECONDS Fibrinogen 546 H (187-446) mg/dL Fibrin Degrad Products (<5) ug/mL Sodium 137 (136-145) mEq/L Potassium 3.8 (3.5-5.1) mEq/L Chloride 104 (98-107) mEq/L Carbon Dioxide 21 (21-32) mEq/L Anion Gap 15.8 H (5-15) BUN 10 (7-18) mg/dL Creatinine 0.8 (0.55-1.02) mg/dL Est Cr Clr Drug Dosing 113.16 mL/min Estimated GFR (MDRD) > 60 (>60) mL/min BUN/Creatinine Ratio 12.5 L (14-18) Glucose 103 (74-106) mg/dL Hemoglobin A1c (4.50-6.20) % Gestat Glucose Screen (<140) mg/dL Uric Acid 4.4 (2.6-6.0) mg/dL Calcium 8.2 L (8.5-10.1) mg/dL Total Bilirubin 0.2 (0.2-1.0) mg/dL AST 15 (15-37) U/L ALT 27 (14-59) U/L Alkaline Phosphatase 87 (46-116) U/L Total Protein 6.0 L (6.4-8.2) g/dl Albumin 1.9 L (3.4-5.0) g/dl Globulin 4.1 gm/dL Albumin/Globulin Ratio 0.5 L (1-2) Urine Color (Yellow) Urine Appearance (Clear) Urine pH (5.0-8.0) Ur Specific [place] (1.005-1.030) Urine Protein (Negative) Urine Glucose (UA) (Negative) Urine Ketones (Negative) Urine Occult Blood (Negative) Urine Nitrite (Negative) Urine Bilirubin (Negative) Urine Urobilinogen (0.2-1.0) Ur Leukocyte Esterase (Negative) Urine RBC (0-5) /hpf Urine WBC (0-5) /hpf Ur Epithelial Cells (0-5) /hpf Amorphous Sediment (NOT SEEN) /hpf Urine Bacteria (FEW) /hpf Urine Mucus (FEW) /hpf 06/05/19 06/05/19 06/05/19 Range/Units 05:00 11:07 11:07 WBC (3.98-10.04) K/mm3 RBC (3.98-5.22) M/mm3 Hgb (11.2-15.7) gm/L Hct (34.1-44.9) % MCV (79.4-94.8) fl MCH (25.6-32.2) pg MCHC (32.2-35.5) g/dl RDW Std Deviation (36.4-46.3) fL Plt Count (182-369) K/mm3 MPV (9.4-12.3) fl Neut % (Auto) (34.0-71.1) % Lymph % (Auto) (19.3-51.7) % [place] % (Auto) (4.7-12.5) % Eos % (Auto) (0.7-5.8) Baso % (Auto) (0.1-1.2) % Neut # (Auto) (1.56-6.13) K/mm3 Lymph # (Auto) (1.18-3.74) K/mm3 [place] # (Auto) (0.24-0.36) K/mm3 Eos # (Auto) (0.04-0.36) K/mm3 Baso # (Auto) (0.01-0.08) K/mm3 Neutrophils % (Manual) (40-60) % Band Neutrophils % (0-10) % Lymphocytes % (Manual) (20-40) % Atypical Lymphs % % Monocytes % (Manual) (2-10) % Eosinophils % (Manual) (0.7-5.8) % Basophils % (Manual) (0.1-1.2) Toxic Granulation Platelet Estimate Plt Morphology Comment Microcytosis RBC Morph Comment PT (9.7-12.0) SECONDS INR APTT (22-31) SECONDS Fibrinogen (187-446) mg/dL Fibrin Degrad Products < 5 ug/ml (<5) ug/mL Sodium (136-145) mEq/L Potassium (3.5-5.1) mEq/L Chloride (98-107) mEq/L Carbon Dioxide (21-32) mEq/L Anion Gap (5-15) BUN (7-18) mg/dL Creatinine (0.55-1.02) mg/dL Est Cr Clr Drug Dosing mL/min Estimated GFR (MDRD) (>60) mL/min BUN/Creatinine Ratio (14-18) Glucose (74-106) mg/dL Hemoglobin A1c 5.00 (4.50-6.20) % Gestat Glucose Screen 143 (<140) mg/dL Uric Acid (2.6-6.0) mg/dL Calcium (8.5-10.1) mg/dL Total Bilirubin (0.2-1.0) mg/dL AST (15-37) U/L ALT (14-59) U/L Alkaline Phosphatase (46-116) U/L Total Protein (6.4-8.2) g/dl Albumin (3.4-5.0) g/dl Globulin gm/dL Albumin/Globulin Ratio (1-2) Urine Color (Yellow) Urine Appearance (Clear) Urine pH (5.0-8.0) Ur Specific [place] (1.005-1.030) Urine Protein (Negative) Urine Glucose (UA) (Negative) Urine Ketones (Negative) Urine Occult Blood (Negative) Urine Nitrite (Negative) Urine Bilirubin (Negative) Urine Urobilinogen (0.2-1.0) Ur Leukocyte Esterase (Negative) Urine RBC (0-5) /hpf Urine WBC (0-5) /hpf Ur Epithelial Cells (0-5) /hpf Amorphous Sediment (NOT SEEN) /hpf Urine Bacteria (FEW) /hpf Urine Mucus (FEW) /hpf Med Orders - Current: Current Medications Acetaminophen (Tylenol) 650 mg PO Q4H PRN PRN Reason: Pain Last Admin: 06/05/19 02:56 Dose: 650 mg Lactated Ringer's (Ringers, Lactated) 1,000 mls @ 125 mls/hr IV ASDIRECTED WILLIE Discontinued Medications Famotidine (Pepcid) 20 mg IVPUSH ONETIME ONE Stop: 06/05/19 08:21 Last Admin: 06/05/19 09:47 Dose: 20 mg Hydroxyzine HCl (Vistaril) 50 mg IM ONETIME ONE Stop: 06/04/19 23:24 Last Admin: 06/04/19 23:56 Dose: 50 mg Lactated Ringer's (Ringers, Lactated) 1,000 mls @ 125 mls/hr IV ASDIRECTED [facility] Last Admin: 06/04/19 23:09 Dose: 125 mls/hr Morphine Sulfate (Morphine) 10 mg IV ONETIME ONE Stop: 06/04/19 23:46 Last Admin: 06/04/19 23:57 Dose: 10 mg
--- NOTE | 2019-06-10 07:59 | US ---
Carotid ultrasound: Multiple real-time images were obtained. Comparison: No prior carotid imaging. Findings: No plaque is identified. Velocity measurements: Right side: CCA has a peak systolic velocity of 2.11 m/s. ICA has a peak systolic velocity of 1.72 m/s and peak end-diastolic velocity of 0.28 m/s. ECA has a peak systolic velocity of 1.58 m/s. Vertebral artery has a peak systolic velocity of 0.66 m/s. ICA/CCA ratio is 0.8. Left side: CCA has a peak systolic velocity of 1.64 m/s. ICA has a peak systolic velocity of 1.30 m/s and peak end-diastolic velocity of 0.42 m/s. ECA has a peak systolic velocity of 1.18 m/s. Vertebral artery has a peak systolic velocity of 0.43 m/s. ICA/CCA ratio is 0.8. Impression: 1. Slightly elevated velocity measurement within the right common carotid artery. Uncertain if this is due to the hypertension as noted in the clinical history or represents proximal area of stenosis. Follow-up carotid ultrasound could be obtained in 1 month to see if findings persist or improve. 2. Carotid ultrasound is otherwise unremarkable. Diagnostic code #3 Questionable disagree with preliminary report from [facility], finalized on 06/05/19, 1:27 PM Central Time, code #2
--- NOTE | 2019-06-10 07:59 | US ---
Follow-up obstetrical ultrasound: Multiple real-time images were obtained. Comparison: Previous obstetrical ultrasounds are available, most recent exam is 03/25/19. Dates: Current ultrasound: TANO 08/17/19, gestational age 29 weeks 4 days Earliest ultrasound (12/28/18): TANO 08/16/19, gestational age 29 weeks 5 days presentation: Cephalic Placenta: Posterior with no findings of placenta previa Amniotic fluid: VENESSA 12.33 cm Limited anatomic: kidneys: Mild pelvicaliectasis is noted. Right renal thickness is 7.6 mm and left renal thicknesses 4.8 mm Measurements: BPD: 7.47 cm -30 weeks 0 days Head circumference: 27.30 cm - 29 weeks 6 days Abdominal circumference: 24.80 cm - 29 weeks 1 day Femur length: 5.47 cm - 29 weeks 0 days Estimated weight: 1340 g (2 lbs. 15 oz.), estimated weight at the 23rd percentile for age by current ultrasound Heart rate: 120 bpm Cervical length: 3.7 cm Growth curves: Various growth parameters are slightly below the mean percentile. Growth felt to be appropriate from previous exam. Impression: 1. Single intrauterine fetus currently cephalic in presentation. Dates as noted above. 2. growth is appropriate from previous exam. 3. Mild pelvicaliectasis, recommend repeat study in one month. Diagnostic code #3 I agree with preliminary report from [facility], finalized on 06/05/19, 11:51 AM Central Time
--- NOTE | 2019-06-10 07:59 | MR ---
MRI brain Technique: T1 sagittal; T2, T2 FLAIR, T1 and diffusion axial; T1 FLAIR coronal images were obtained. Comparison: No prior intracranial imaging is available. Findings: Ventricles along with basal cisterns and sulci over the convexities are within normal limits for the patient's age. Normal signal void is seen within the major cerebral arteries within the skull base. Equivocal diffusion abnormality within the inferior left cerebellar hemisphere. There is also an equivocal area of increased signal on the FLAIR sequence within this region. Since this is only seen on one section and is within the periphery of the cerebellum this could also be artifact. No other diffusion abnormalities or other areas of abnormal signal are seen. Impression: 1. Equivocal diffusion abnormality and T2 FLAIR abnormality within the inferior left cerebellar hemisphere. This finding may also be artifact as noted above. Recommend follow-up MRI in 48 hours with additional T2 FLAIR in coronal and sagittal planes to see if this finding is real. At this point, difficult to exclude a small nonreversible infarct. 2. No additional abnormality is seen. Diagnostic code #3 Questionable disagree agree with preliminary report from [facility] (possible peripheral cerebellar finding as noted above), finalized on 06/05/19, 1:27 PM Central Time
== END 2019-06-05 15:45 | disposition home or self-care (01) ==
LOC: JD.ED 22:04 → SUPCPDRO 22:04 → JD.MS 06-05 00:44 → JD.OB 06-05 08:01
PROVIDERS: ADMIT Obstetrics & Gynecology; ATTEND Obstetrics & Gynecology
DX: O99.89 Other specified diseases and conditions complicating pregnancy, childbirth and the puerperium (principal); O99.013 Anemia complicating pregnancy, third trimester; O16.3 Unspecified maternal hypertension, third trimester; O24.913 Unspecified diabetes mellitus in pregnancy, third trimester; G44.52 New daily persistent headache (NDPH); D64.9 Anemia, unspecified; Z3A.29 29 weeks gestation of pregnancy; Z88.5 Allergy status to narcotic agent; Z87.891 Personal history of nicotine dependence
CPT/HCPCS: 36415; 59025; 70551; 76816; 80053; 81001; 82950; 83036; 84550; 85007; 85025; 85027; 85362; 85384; 85610; 85730; 86592; 93880; 95816; 96361; 96372; 96374; 99285; A9270; G0378; J2270; J3410; J3490; J7120; 96360; 99284

== ENCOUNTER 2019-11-15 20:15 | Emergency (ER) | payer BC ==
[2019-11-15 20:25] VITALS: BP 129/80; PULSE 75
--- NOTE | 2019-11-15 22:25 | EDM.PDOC ---
ED HPI GENERAL MEDICAL PROBLEM - General Chief Complaint: Chest Pain Stated Complaint: CHEST PAIN HEART DOING FUNNY THINGS Time Seen by Provider: 11/15/19 21:26 Source of Information: Reports: Patient, Significant Other (Boyfriend) History Limitations: Reports: No Limitations - History of Present Illness INITIAL COMMENTS - FREE TEXT/NARRATIVE: Ms. Forrest is a very pleasant 19-year-old woman with a past medical history significant for prediabetes, untreated for the past 4 to 5 years, who now presents to the ED stating that she developed left-sided chest pain 4 days ago, but that it is worse tonight. She describes the character as sharp, and a pain , not a discomfort. It does not radiate. It is constant, and she has not identified any modifiers. She has had slight nausea, but no associated dyspnea , diaphoresis, or sense of impending doom. She also reports that she has had 1 week of left lower quadrant cramping, that has been coming and going. She also reports that she has had palpitations, the sensation of an occasional skipped beat, associated with lightheadedness, for years. She has not previously sought evaluation for her palpitations. No recent fever, chills, cough, vomiting, constipation, diarrhea, or urinary symptoms. The patient states that she took some TUMS, which did not help her chest pain. Her LMP was 10/19/2019. Here in the ED, the patient is found to be hemodynamically stable, afebrile, saturating 99% on room air. The patient's PCP is MIGUEL Powell. Her Sorter Operator is Dr. Julio C Ojeda. She received an influenza vaccine this season. Mid-Sternal Chest Pain Score (Numeric/FACES): 4 - Related Data Allergies Allergy/AdvReac Type Severity Reaction Status Date / Time codeine Allergy Hives Verified 11/15/19 20:24 Home Meds: Home Meds Methylphenidate HCl [Concerta] 18 mg PO DAILY 11/15/19 [History] Orphenadrine [Norflex] 1 tab PO Q12H PRN #14 tab.er 11/15/19 [Rx] lamoTRIgine [Lamictal] 100 mg PO DAILY 11/15/19 [History] Past Medical History : 2 Para: 1 Endocrine/Metabolic History: Reports: Obesity/BMI 30+, Other (See Below) ( Prediabetes, untreated) - Infectious Disease History Infectious Disease History: Reports: MRSA - Past Surgical History HEENT Surgical History: Reports: Oral Surgery (wisdom teeth extraction), Tonsillectomy Female Surgical History: Reports: D&C (x 1) Social & Family History - Family History Family Medical History: Noncontributory Cardiac: Reports: Angina, Hypertension OBGYN: Reports: Other (See Below) Endocrine/Metabolic: Reports: Diabetes, type II - Tobacco Use Smoking Status *Q: Current Every Day Smoker Years of Tobacco use: 4 Packs/Tins Daily: 0.2 - Caffeine Use Caffeine Use: Reports: Coffee Other Caffeine Use: One cup a day - Alcohol Use Alcohol Use History: Yes Date/Time of Last Drink Comment: None since 2018 - Recreational Drug Use Recreational Drug Use: Yes Drug Use in Last 12 Months: No Recreational Drug Type: Reports: Marijuana/Hashish (last smoked 2017) - Living Situation & Occupation Living situation: Reports: Single, with Significant Other (Boyfriend), with Family (Daughter) Occupation: Unemployed ED ROS GENERAL - Review of Systems Review Of Systems: Comprehensive ROS is negative, except as noted in HPI. ED EXAM, GENERAL - Physical Exam Exam: See Below Exam Limited By: No Limitations General Appearance: Alert, WD/WN, No Apparent Distress Eye Exam: Bilateral Eye: EOMI, Normal Inspection Ears: Normal External Exam, Hearing Grossly Normal Nose: Normal Inspection Throat/Mouth: Normal Inspection, Normal Lips, Normal Voice, No Airway Compromise Head: Atraumatic, Normocephalic Neck: Normal Inspection, Full Range of Motion Respiratory/Chest: No Respiratory Distress, Lungs Clear, Normal Breath Sounds, No Accessory Muscle Use, Other (Reproducible tenderness to palpation of the left pectoralis muscle. Pain is also reproducible by having the patient across her left upper extremity across her chest.). No: Decreased Breath Sounds, Crackles, Rhonchi, Wheezing, Stridor, Prolonged Expiration Cardiovascular: Normal Peripheral Pulses, Regular Rate, Rhythm, No Edema, No Gallop, No JVD, No Murmur, No Rub Peripheral Pulses: 4+: Radial (L), Radial (R) GI/Abdominal: Normal Bowel Sounds, Soft, Non-Tender, No Organomegaly, No Distention, No Abnormal Bruit, No Mass (Female) Exam: Deferred Rectal (Female) Exam: Deferred Back Exam: Normal Inspection, Full Range of Motion, NT Extremities: Normal Inspection, Normal Range of Motion, No Pedal Edema, Normal Capillary Refill Neurological: Alert, Oriented, Normal Cognition, No Motor/Sensory Deficits Psychiatric: Normal Affect Skin Exam: Warm, Dry, Intact, Normal Color, No Rash EKG INTERPRETATION EKG Date: 11/15/19 Time: 22:28 Rhythm: Other (Sinus arrhythmia) Rate (Beats/Min): 66 [place]: Normal P-Wave: Present QRS: Normal ST-T: Normal QT: Normal Comparison: NA - No Prior EKG Course - Vital Signs Last Recorded V/S: Last Vital Signs Temp 36.9 C 11/15/19 20:22 Pulse 75 11/15/19 20:22 Resp 18 11/15/19 20:22 BP 129/80 11/15/19 20:22 Pulse Ox 99 11/15/19 20:22 - Orders/Labs/Meds Labs: Laboratory Tests 11/15/19 11/15/19 Range/Units 21:26 21:26 D-Dimer, Quantitative 0.77 H (0.19-0.50) mg/L Troponin I < 0.017 (0.00-0.056) ng/mL Meds: Medications Discontinued Medications Generic Name Dose Route Start Last Admin Trade Name Veronika PRN Reason Stop Dose Admin Ibuprofen 600 mg 11/15/19 23:14 11/15/19 23:28 Motrin PO 11/15/19 23:15 600 mg ONETIME ONE Administration Orphenadrine Citrate 100 mg 11/15/19 23:14 11/15/19 23:28 Norflex PO 11/15/19 23:15 100 mg ONETIME STA Administration - Re-Assessments/Exams Free Text/Narrative Re-Assessment/Exam: 11/15/19 22:12 As above, the patient has reproducible tenderness to her left chest, consistent with left pectoralis muscle strain or spasm. I have nevertheless ordered a work -up that includes blood work, a chest x-ray, and an ECG. With respect to the patient's left-sided abdominal pain and tenderness, the etiology is not entirely clear, however, her abdomen is soft with normoactive bowel sounds, and she has no report of vomiting, constipation, or diarrhea, therefore my suspicion for a significant intra-abdominal process is quite low. Rather than irradiate the patient unnecessarily, I would prefer that she undergo an outpatient MRI of her abdomen, should her symptoms persist. The patient agreed with my recommendation. 11/15/19 22:58 Two-view chest radiograph appears to be grossly normal. Cardiac silhouette is within normal limits. No pulmonary vascular congestion. No pleural effusions. No focal infiltrate. No pneumothorax. Formal read per the Radiologist pending. The patient's troponin is undetectably low. Her D-dimer is mildly elevated at 0.77. I believe the patient's mildly elevated D-dimer is most consistent with her gender and body habitus, and is not consistent with a PE. I am not recommending a CT angiogram of the chest, as I feel that would be unnecessary radiation. 11/15/19 23:12 Test results discussed with and explained to the patient and her boyfriend. All questions answered. As above, the patient's left-sided chest pain appears to be musculoskeletal in etiology. She will be given ibuprofen and started on oral Norflex. I will submit a prescription for Norflex. She may safely be discharged home. Departure - Departure Time of Disposition: 23:15 Disposition: Home, Self-Care 01 Condition: Good Clinical Impression: Musculoskeletal chest pain - Discharge Information *PRESCRIPTION DRUG MONITORING PROGRAM REVIEWED*: Not Applicable *COPY OF PRESCRIPTION DRUG MONITORING REPORT IN PATIENT ANTONIA: Not Applicable Prescriptions: Orphenadrine [Norflex] 1 tab PO Q12H PRN #14 tab.er PRN Reason: Muscle Spasm Instructions: Chest Wall Pain, [id number] Referrals: Loretta Lovell PA-C [Primary Care Provider] - Julio C Ojeda MD [Physician] - Forms: ED Department Discharge Additional Instructions: You were seen in the emergency room for 4 days of left-sided chest pain, several years of palpitations, and 1 week of left lower abdominal cramps with slight nausea. Work-up in the ER included blood work, a chest x-ray, and an ECG. Your D-dimer, a measure of blood clot, was slightly elevated, but, as discussed , not consistent with a pulmonary embolus (blood clot in the lungs). The remainder of your work-up was unremarkable. Based on your history, physical exam, and ER tests, the cause of your left- sided chest pain is most likely musculoskeletal in etiology. You have been started on the muscle relaxant Norflex, and a prescription for Norflex has been sent to [facility], located at [address] [place] [address], in [place]. Take 1 tablet every 12 hours, starting tomorrow morning, Monday, , as prescribed. In addition to Norflex, we recommend that you take [id number] ibuprofen, 3 tablets (600 mg) every 8 hours, with food, as needed for chest discomfort. The cause of your lower left abdominal pain is unclear. If it persists, we recommend that you follow-up with your PCP, MIGUEL Powell, for further evaluation that might include an MRI of your abdomen and pelvis. This would avoid unnecessary radiation. If any other problems, please do not hesitate to return to the ER. Sepsis Event Note - Evaluation Sepsis Screening Result: No Definite Risk - Focused Exam Date Exam was Performed: 11/17/19 Time Exam was Performed: 08:00
[2019-11-15] MEDS ORDERED: Orphenadrine 100 MG Tab.ER PO STA (23:14)
[2019-11-15] MEDS ORDERED: Ibuprofen 600 MG Tab PO ONE (23:14)
--- NOTE | 2019-11-16 17:04 | CR ---
Chest: Two views of the chest were obtained. Comparison: No prior chest imaging. Heart size and mediastinum are normal. Lungs are clear with no acute parenchymal change. Bony structures are unremarkable for the patient's age. Impression: 1. Nothing acute is seen on two-view chest x-ray. Diagnostic code #1 This report was dictated in [place] Standard Time
== END 2019-11-15 23:30 | disposition home or self-care (01) ==
LOC: JD.ED 20:15
DX: R07.89 Other chest pain (principal); F17.210 Nicotine dependence, cigarettes, uncomplicated; Z88.5 Allergy status to narcotic agent
CPT/HCPCS: 36415; 71046; 84484; 85379; 93005; 99285; A9270; 93010; 99283

== ENCOUNTER 2020-03-02 22:18 | Emergency (ER) | payer BC ==
[2020-03-02 22:33] VITALS: BP 126/67; PULSE 70
--- NOTE | 2020-03-02 22:54 | EDM.PDOC ---
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 Unsure when LMP was, sometime in november. Pt states today noticed dizziness, low back and abdominal pain. , spontaneous at 1 weeks. [ End ] The patient has had some cramping lower abdominal pain and this is why she came in. There is been no spotting. She is concerned because of history of spontaneous . No fever or other symptom of acute medical illness. Bilateral Lower Abdominal Pain Score (Numeric/FACES): 6 - Related Data Allergies Allergy/AdvReac Type Severity Reaction Status Date / Time codeine Allergy Hives Verified 03/02/20 22:29 Home Meds: Home Meds Vits #93/Iron Fum/FA [ Formula Tablet] 1 tab PO DAILY 03/02/20 [History] Past Medical History - Past Health History Medical/Surgical History: Denies Medical/Surgical History HEENT History: Reports: Allergic Rhinitis Other Gastrointestinal History: family history of colon anyrysm. GREY PERCHER History: Reports: , Spontaneous Other GREY PERCHER History: patiet is Neurological History: Reports: Migraines Other Neuro History: patient states induced headaches but no issues prior too. 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 - Infectious Disease History Infectious Disease History: Reports: MRSA Other Infectious Disease History: history of MRSA as a child in her elbow. screen and cleared by dr mckinney on 07/24/2019, 07/31/2019, 08/08/2019 - Past Surgical History HEENT Surgical History: Reports: Oral Surgery, Tonsillectomy Female Surgical History: Reports: D&C Social & Family History - Family History Family Medical History: Noncontributory Cardiac: Reports: Angina, Hypertension OBGYN: Reports: Other (See Below) Endocrine/Metabolic: Reports: Diabetes, type II - Tobacco Use Smoking Status *Q: Former Smoker Used Tobacco, but Quit: Yes Month/Year Tobacco Last Used: 09/2019 - Caffeine Use Caffeine Use: Reports: Coffee Other Caffeine Use: One cup a day - Recreational Drug Use Recreational Drug Use: No - Living Situation & Occupation Living situation: Reports: Single, with Significant Other (Boyfriend), with Family (Daughter) Occupation: Unemployed ED ROS GENERAL - Review of Systems Review Of Systems: Comprehensive ROS is negative, except as noted in HPI. ED EXAM - Physical Exam Exam: See Below Exam Limited By: No Limitations General Appearance: Alert, WD/WN, No Apparent Distress Eye Exam: Bilateral Eye: EOMI, PERRL Ears: Normal External Exam Nose: Normal Inspection Throat/Mouth: Normal Inspection Head: Atraumatic, Normocephalic Neck: Normal Inspection, Supple Respiratory/Chest: No Respiratory Distress, Lungs Clear Cardiovascular: Regular Rate, Rhythm GI/Abdominal Exam: Soft, Non-Tender Back Exam: Normal Inspection Extremities: Normal Inspection, Non-Tender Neurological: Alert, Oriented, Normal Cognition, No Motor/Sensory Deficits Psychiatric: Normal Affect Skin Exam: Warm, Dry Course - Vital Signs Last Recorded V/S: Last Vital Signs Temp 36.6 C 03/02/20 22:31 Pulse 70 03/02/20 22:31 Resp 17 03/02/20 22:31 BP 126/67 03/02/20 22:31 Pulse Ox 96 03/02/20 22:31 - Orders/Labs/Meds Orders: Active Orders 24 hr Category Date Time Status OB Transvaginal [US] Stat Exams 03/03/20 00:00 Taken Labs: Laboratory Tests 03/02/20 03/03/20 Range/Units 23:39 00:10 HCG, Quant 68754.0 mIU/mL Urine HCG, Qual Positive (NEGATIVE) - Re-Assessments/Exams Free Text/Narrative Re-Assessment/Exam: 03/03/20 03:12 As a result of the patient's concern and obstetrical ultrasound was done which shows "early live intrauterine with a sonographic gestational age of 8 weeks 3 days." Quantitative hCG has continued to rise from previous and is in the normal range to support . Patient and reassured. Departure - Departure Time of Disposition: 03:13 Disposition: Home, Self-Care 01 Condition: Good Clinical Impression: Pelvic cramping in antepartum period, History of spontaneous - Discharge Information *PRESCRIPTION DRUG MONITORING PROGRAM REVIEWED*: Not Applicable *COPY OF PRESCRIPTION DRUG MONITORING REPORT IN PATIENT ANTONIA: Not Applicable Referrals: Julio C Mckinney MD [Primary Care Provider] - Forms: ED Department Discharge Additional Instructions: You have been evaluated for cramping pelvic pain with concern for your early . Pelvic ultrasound was normal with gestational age of 8 weeks 3 days. hCG the hormone supporting is continuing to rise as expected. Report this visit and findings to your dispersion mixer this morning. Do not hesitate to return to the ER for any concerns especially fever spotting cramping abdominal pain any symptom of acute medical illness. Sepsis Event Note - Evaluation Sepsis Screening Result: No Definite Risk - Focused Exam Vital Signs: Vital Signs Temp Pulse Resp BP Pulse Ox 03/02/20 22:31 36.6 C 70 17 126/67 96 Date Exam was Performed: 03/03/20 Time Exam was Performed: 03:10 - My Orders Last 24 Hours: My Active Orders 03/03/20 00:00 OB Transvaginal [US] Stat - Assessment/Plan Last 24 Hours: My Active Orders 03/03/20 00:00 OB Transvaginal [US] Stat
--- NOTE | 2020-03-03 08:11 | US ---
1st trimester obstetrical ultrasound: Multiple real-time images were obtained transvaginally. Comparison: No previous study. Dates: Current ultrasound: TANO , gestational age 8 weeks 3 days Single intrauterine gestation is seen. Embryo is identified. No subchorionic hemorrhage is seen. No discrete maternal adnexal abnormality is seen. Nabothian cysts are present. Measurements: Athena-rump length: 1.89 cm - 8 weeks 3 days Heart rate: 171 bpm Impression: 1. Single intrauterine gestation. Dates as noted above. 2. Nabothian cyst. 3. No complicating process is seen by ultrasound at this time. Diagnostic code #2 This report was dictated in MDT I agree with preliminary report from [facility], finalized on 03/03/20, 2:07 AM [place] Daylight Time
== END 2020-03-03 03:20 | disposition home or self-care (01) ==
LOC: JD.ED 22:18
DX: O99.89 Other specified diseases and conditions complicating pregnancy, childbirth and the puerperium (principal); R10.2 Pelvic and perineal pain; O99.211 Obesity complicating pregnancy, first trimester; Z88.5 Allergy status to narcotic agent; Z3A.08 8 weeks gestation of pregnancy; Z87.891 Personal history of nicotine dependence
CPT/HCPCS: 36415; 76817; 76817-26; 81025; 84702; 99282; 99284-25

== ENCOUNTER 2020-04-07 15:40 | Emergency (ER) | payer BC ==
[2020-04-07] MEDS ORDERED: Sodium Chloride 0.9% 10 ML Syringe FLUSH PRN (16:28)
[2020-04-07] MEDS ORDERED: Acetaminophen 325 MG Tab PO ONE (16:29)
[2020-04-07] MEDS ORDERED: HYDROmorphone 0.5 MG/0.5 ML Syringe IVPUSH ONE ×2 (16:29→18:19)
[2020-04-07] MEDS ORDERED: Ondansetron 4 MG/2 ML SDV IVPUSH ONE (16:29)
--- NOTE | 2020-04-07 16:52 | EDM.PDOC ---
ED HPI GENERAL MEDICAL PROBLEM - General Chief Complaint: Headache Stated Complaint: HEADACHE X4DAYS/DIZZY (13WEEK ) Time Seen by Provider: 04/07/20 16:11 Source of Information: Reports: Patient, RN Notes Reviewed - History of Present Illness INITIAL COMMENTS - FREE TEXT/NARRATIVE: 20 yr old female with Jones that started about 4 days ago, getting worse. She is G3,P1, about 13 weeks . The Jones is a L sided pressure that doesn't go away. She has had some nausea, no vomiting. Has not otherwise been ill. No problems with this . Treatments BRUSH WASHER: Reports: Other (see below) Other Treatments BRUSH WASHER: tylenol Left Headache Pain Score (Numeric/FACES): 8 - Related Data Allergies Allergy/AdvReac Type Severity Reaction Status Date / Time codeine Allergy Severe Hives Verified 04/07/20 16:01 Home Meds: Home Meds Vits #93/Iron Fum/FA [ Formula Tablet] 1 tab PO DAILY 03/02/20 [History] Past Medical History - Past Health History Medical/Surgical History: Denies Medical/Surgical History HEENT History: Reports: Allergic Rhinitis Other Gastrointestinal History: family history of colon anyrysm. 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 - Infectious Disease History Infectious Disease History: Reports: MRSA Other Infectious Disease History: history of MRSA as a child in her elbow. screen and cleared by dr mckinney on 07/24/2019, 07/31/2019, 08/08/2019 - Past Surgical History HEENT Surgical History: Reports: Oral Surgery, Tonsillectomy Female Surgical History: Reports: D&C Social & Family History - Family History Family Medical History: Noncontributory Cardiac: Reports: Angina, Hypertension OBGYN: Reports: Other (See Below) Endocrine/Metabolic: Reports: Diabetes, type II - Tobacco Use Smoking Status *Q: Never Smoker - Caffeine Use Caffeine Use: Reports: Coffee, Soda, Tea Other Caffeine Use: One cup a day - Recreational Drug Use Recreational Drug Use: No - Living Situation & Occupation Living situation: Reports: Single, with Significant Other (Boyfriend), with Family (Daughter) Occupation: Unemployed ED ROS GENERAL - Review of Systems Review Of Systems: See Below Constitutional: Denies: Fever, Chills, Diaphoresis HEENT: Reports: No Symptoms Respiratory: Denies: Shortness of Breath, Cough Cardiovascular: Denies: Chest Pain GI/Abdominal: Reports: Nausea. Denies: Abdominal Pain, Vomiting : Denies: Dysuria, Flank Pain Musculoskeletal: Reports: Neck Pain (mild posterior stiffness and soreness). Denies: Back Pain Skin: Denies: Rash Neurological: Reports: Headache. Denies: Numbness, Tingling, Trouble Speaking, Difficulty Walking, Weakness - Physical Exam Exam: See Below Eye Exam: Bilateral Eye: PERRL Throat/Mouth: Normal Inspection, Normal Oropharynx Head Exam: Atraumatic Neck: Supple (good side to side and ant. ROM without difficulty) Respiratory/Chest: No Respiratory Distress, Lungs Clear, Normal Breath Sounds Cardiovascular: Regular Rate, Rhythm GI/Abdominal: Soft, Non-Tender Neuro Exam (Abbreviated): Alert, Oriented, No Motor/Sensory Deficits, Other (finger to nose nl) Extremities: Normal Inspection, Normal Range of Motion Skin Exam: Warm, Dry, Normal Color Course - Vital Signs Last Recorded V/S: Last Vital Signs Temp 97.3 F 04/07/20 18:55 Pulse 67 04/07/20 18:55 Resp 16 04/07/20 18:55 BP 93/49 L 04/07/20 18:55 Pulse Ox 100 04/07/20 18:55 - Orders/Labs/Meds Labs: Laboratory Tests 04/07/20 04/07/20 04/07/20 Range/Units 16:40 16:40 16:40 WBC 7.25 (3.98-10.04) K/mm3 RBC 4.89 (3.98-5.22) M/mm3 Hgb 11.2 (11.2-15.7) gm/dl Hct 36.4 (34.1-44.9) % MCV 74.4 L (79.4-94.8) fl MCH 22.9 L (25.6-32.2) pg MCHC 30.8 L (32.2-35.5) g/dl RDW Std Deviation 42.8 (36.4-46.3) fL Plt Count 380 H D (182-369) K/mm3 MPV 10.5 (9.4-12.3) fl Neut % (Auto) 66.4 (34.0-71.1) % Lymph % (Auto) 21.2 (19.3-51.7) % [place] % (Auto) 9.1 (4.7-12.5) % Eos % (Auto) 2.8 (0.7-5.8) Baso % (Auto) 0.4 (0.1-1.2) % Neut # (Auto) 4.81 (1.56-6.13) K/mm3 Lymph # (Auto) 1.54 (1.18-3.74) K/mm3 [place] # (Auto) 0.66 H (0.24-0.36) K/mm3 Eos # (Auto) 0.20 (0.04-0.36) K/mm3 Baso # (Auto) 0.03 (0.01-0.08) K/mm3 Manual Slide Review Abnormal smear Sodium 138 (136-145) mEq/L Potassium 3.5 (3.5-5.1) mEq/L Chloride 104 (98-107) mEq/L Carbon Dioxide 25 (21-32) mEq/L Anion Gap 12.5 (5-15) BUN 8 (7-18) mg/dL Creatinine 0.8 (0.55-1.02) mg/dL Est Cr Clr Drug Dosing 112.21 mL/min Estimated GFR (MDRD) > 60 (>60) mL/min BUN/Creatinine Ratio 10.0 L (14-18) Glucose 81 (74-106) mg/dL Calcium 8.7 (8.5-10.1) mg/dL Total Bilirubin 0.2 (0.2-1.0) mg/dL AST 14 L (15-37) U/L ALT 22 (14-59) U/L Alkaline Phosphatase 58 (46-116) U/L Total Protein 6.8 (6.4-8.2) g/dl Albumin 2.6 L (3.4-5.0) g/dl Globulin 4.2 gm/dL Albumin/Globulin Ratio 0.6 L (1-2) West Nile Virus IgM Ab Positive Meds: Medications Discontinued Medications Generic Name Dose Route Start Last Admin Trade Name Veronika PRN Reason Stop Dose Admin Acetaminophen 975 mg 04/07/20 16:29 04/07/20 16:44 Tylenol PO 04/07/20 16:30 975 mg NOW ONE Administration Hydromorphone HCl 0.5 mg 04/07/20 16:29 04/07/20 16:42 Dilaudid IVPUSH 04/07/20 16:30 0.5 mg ONETIME ONE Administration Hydromorphone HCl 0.5 mg 04/07/20 18:19 04/07/20 18:23 Dilaudid IVPUSH 04/07/20 18:20 0.5 mg ONETIME ONE Administration Ondansetron HCl 4 mg 04/07/20 16:29 04/07/20 16:41 Zofran IVPUSH 04/07/20 16:30 4 mg ONETIME ONE Administration Sodium Chloride 10 ml 04/07/20 16:28 04/07/20 16:44 Saline Flush FLUSH 10 ml ASDIRECTED PRN Administration Keep Vein Open - Re-Assessments/Exams Free Text/Narrative Re-Assessment/Exam: 04/07/20 18:22 blood pressures have been good. [place] better after zofran 4 mg IV, dilaudid 0.5 mg IV, now L sided headache is coming back, getting worse again. She is not drowsy from the initial dose so will repeat dilaudid 0.5 mg IV now. Heart tones were good at about 170. 04/09/20 18:09. Lab has called over, WNV screen has come back positive. I called patient a few minutes ago to notify her. Her neck is a little more stiff and sore today but the Jones is improving. She is getting fairly good relief with tylenol. I have reminded her of need to return to ED as needed if symptoms worsening in any serious way. Departure - Departure Time of Disposition: 18:24 Disposition: Home, Self-Care 01 Condition: Fair Clinical Impression: First trimester Headache Qualifiers: Headache type: new daily persistent Qualified Code(s): G44.52 - New daily persistent headache (NDPH) - Discharge Information Instructions: General Headache Without Cause, [id number] Referrals: Juli oC Mckinney MD [Primary Care Provider] - Forms: ED Department Discharge Additional Instructions: rest, Continue tylenol q 8 hr for any further headache as needed. Try follow up with Dr Mckinney or one of the OB providers in 1 to 2 days if Jones not resolving as expected. Return to ED as needed if symptoms worsening in any way. Test for West Nile Virus has been sent to the state lab. Results usually take about 4 business days to process. Sepsis Event Note (ED) - Evaluation Sepsis Screening Result: No Definite Risk
[2020-04-07 18:58] VITALS: BP 93/49; PULSE 67
== END 2020-04-07 18:55 | disposition home or self-care (01) ==
LOC: JD.ED 15:40
DX: O99.351 Diseases of the nervous system complicating pregnancy, first trimester (principal); G44.52 New daily persistent headache (NDPH); O99.211 Obesity complicating pregnancy, first trimester; Z88.5 Allergy status to narcotic agent; Z3A.13 13 weeks gestation of pregnancy
CPT/HCPCS: 36415; 80053; 85025; 86788; 96374; 96375; 96376; 99284; A9270; J1170; J2405; 99283

== ENCOUNTER 2020-09-18 11:14 | Emergency (ER) | payer BC ==
[2020-09-18 11:32] VITALS: BP 135/88; PULSE 93
[2020-09-18] MEDS ORDERED: Sodium Chloride 0.9% 10 ML Syringe FLUSH PRN (11:36)
--- NOTE | 2020-09-18 11:59 | EDM.PDOC ---
ED HPI GENERAL MEDICAL PROBLEM - General Chief Complaint: Lower Extremity Injury/Pain Stated Complaint: L LEG PAIN/SWELLING Time Seen by Provider: 09/18/20 11:24 Source of Information: Reports: Patient, RN Notes Reviewed History Limitations: Reports: No Limitations - History of Present Illness INITIAL COMMENTS - FREE TEXT/NARRATIVE: Patient is a 20 year old female 37 weeks gestation presenting to the ER with c/o pain and swelling to her left thigh. She states that the the pain began 2 days ago and that she noticed some swelling to the area today. She denies chest pain. States she does feel slightly short of breath, but states that is likely d/t the baby pushing up into her chest. This is no worse than it had been prior to the onset of leg pain. She has no history of blood clots, but states that she does have a family history of them. Left Upper Thigh Pain Score (Numeric/FACES): 4 - Related Data Allergies Allergy/AdvReac Type Severity Reaction Status Date / Time codeine Allergy Severe Hives Verified 04/07/20 16:01 Home Meds: Home Meds Vits #93/Iron Fum/FA [ Formula Tablet] 1 tab PO DAILY 03/02/20 [History] Past Medical History - Past Health History Medical/Surgical History: Denies Medical/Surgical History HEENT History: Reports: Allergic Rhinitis Other Gastrointestinal History: family history of colon anyrysm. [employer] History: Reports: , Spontaneous Other [employer] History: patiet is Neurological History: Reports: Migraines Other Neuro History: patient states induced headaches but no issues prior too. 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 - Infectious Disease History Infectious Disease History: Reports: Chicken Pox, MRSA Other Infectious Disease History: history of MRSA as a child in her elbow. screen and cleared by dr mckinney on 07/24/2019, 07/31/2019, 08/08/2019 - Past Surgical History HEENT Surgical History: Reports: Oral Surgery, Tonsillectomy Female Surgical History: Reports: D&C Social & Family History - Family History Family Medical History: No Pertinent Family History Cardiac: Reports: Angina, Hypertension OBGYN: Reports: Other (See Below) Endocrine/Metabolic: Reports: Diabetes, type II - Tobacco Use Tobacco Use Status *Q: Never Tobacco User Second Hand Smoke Exposure: No - Caffeine Use Caffeine Use: Reports: Coffee Other Caffeine Use: One cup a day - Recreational Drug Use Recreational Drug Use: Yes Drug Use in Last 12 Months: No - Living Situation & Occupation Living situation: Reports: Single, with Significant Other (Boyfriend), with Family (Daughter) Occupation: Unemployed Review of Systems - Review of Systems Review Of Systems: See Below Constitutional: Reports: No Symptoms Eyes: Reports: No Symptoms Ears: Reports: No Symptoms Nose: Reports: No Symptoms Mouth/Throat: Reports: No Symptoms Respiratory: Reports: Shortness of Breath (mild). Denies: Pleuritic Chest Pain Cardiovascular: Denies: Chest Pain, Lightheadedness GI/Abdominal: Reports: No Symptoms Genitourinary: Reports: No Symptoms Musculoskeletal: Reports: Other (LLE edema/pain) Skin: Reports: No Symptoms Neurological: Reports: No Symptoms Psychiatric: Reports: No Symptoms ED EXAM, GENERAL - Physical Exam Exam: See Below General Appearance: Alert, WD/WN, No Apparent Distress Respiratory/Chest: No Respiratory Distress, Lungs Clear, Normal Breath Sounds, No Accessory Muscle Use, Chest Non-Tender Cardiovascular: Normal Peripheral Pulses, Regular Rate, Rhythm, No Gallop, No JVD, No Murmur, No Rub, Other (trace edema to LLE. No redness/warmth. 2+ pedal pulses.) Neurological: Alert, Oriented, CN II-XII Intact, Normal Cognition, Normal Gait, Normal Reflexes, No Motor/Sensory Deficits Psychiatric: Normal Affect, Normal Mood Skin Exam: Warm, Dry, Intact, Normal Color, No Rash Course - Vital Signs Last Recorded V/S: Last Vital Signs Temp 97.2 F 09/18/20 11:26 Pulse 93 09/18/20 11:26 Resp 18 09/18/20 11:26 BP 135/88 09/18/20 11:26 Pulse Ox 98 09/18/20 11:26 - Orders/Labs/Meds Labs: Laboratory Tests 09/18/20 09/18/20 09/18/20 Range/Units 11:45 11:45 11:45 WBC 10.74 H (3.98-10.04) K/mm3 RBC 4.28 (3.98-5.22) M/mm3 Hgb 9.7 L (11.2-15.7) gm/dl Hct 33.0 L (34.1-44.9) % MCV 77.1 L (79.4-94.8) fl MCH 22.7 L (25.6-32.2) pg MCHC 29.4 L (32.2-35.5) g/dl RDW Std Deviation 49.0 H (36.4-46.3) fL Plt Count 385 H (182-369) K/mm3 MPV 9.9 (9.4-12.3) fl Neut % (Auto) 53.9 (34.0-71.1) % Lymph % (Auto) 33.8 (19.3-51.7) % Henderson % (Auto) 9.6 (4.7-12.5) % Eos % (Auto) 1.8 (0.7-5.8) Baso % (Auto) 0.5 (0.1-1.2) % Neut # (Auto) 5.80 (1.56-6.13) K/mm3 Lymph # (Auto) 3.63 (1.18-3.74) K/mm3 Henderson # (Auto) 1.03 H (0.24-0.36) K/mm3 Eos # (Auto) 0.19 (0.04-0.36) K/mm3 Baso # (Auto) 0.05 (0.01-0.08) K/mm3 Manual Slide Review Abnormal smear D-Dimer, Quantitative 4.78 H (0.19-0.50) mg/L Sodium 137 (136-145) mEq/L Potassium 3.9 (3.5-5.1) mEq/L Chloride 103 (98-107) mEq/L Carbon Dioxide 23 (21-32) mEq/L Anion Gap 14.9 (5-15) BUN 6 L (7-18) mg/dL Creatinine 0.7 (0.55-1.02) mg/dL Est Cr Clr Drug Dosing 128.24 mL/min Estimated GFR (MDRD) > 60 (>60) mL/min BUN/Creatinine Ratio 8.6 L (14-18) Glucose 102 (74-106) mg/dL Calcium 9.0 (8.5-10.1) mg/dL Total Bilirubin 0.4 (0.2-1.0) mg/dL AST 21 (15-37) U/L ALT 32 (14-59) U/L Alkaline Phosphatase 151 H (46-116) U/L C-Reactive Protein 2.2 H* (<1.0) mg/dL Total Protein 7.1 (6.4-8.2) g/dl Albumin 2.3 L (3.4-5.0) g/dl Globulin 4.8 gm/dL Albumin/Globulin Ratio 0.5 L (1-2) Meds: Medications Discontinued Medications Generic Name Dose Route Start Last Admin Trade Name Freq PRN Reason Stop Dose Admin Sodium Chloride 10 ml 09/18/20 11:36 Saline Flush FLUSH ASDIRECTED PRN Keep Vein Open - Re-Assessments/Exams Free Text/Narrative Re-Assessment/Exam: Patient is a 20-year-old female G2, P1 at 37 weeks gestation presenting to the emergency department with complaints of pain and swelling to her left lower extremity. She is concerned that she could have a blood clot in her legs that she does a family history of blood clots. I ordered CBC, CMP, CRP, D-dimer, and a venous Doppler ultrasound of the left lower extremity. 09/18/20 13:27 Hematology was significant for D-dimer elevated at 4.78, CRP 2.2. Venous Doppler ultrasound shows slow flow with no findings of DVT within the left lower extremity or within the right common femoral vein. Called and spoke with the [employer] on-call, Dr. Lyons. She verbalized that the elevated D-dimer is likely due to and that no further work-up is needed. We will discharge patient home with routine recommendations. Discharge instructions as documented. Departure - Departure Time of Disposition: 13:29 Disposition: Home, Self-Care 01 Condition: Good Clinical Impression: Leg pain, left - Discharge Information *PRESCRIPTION DRUG MONITORING PROGRAM REVIEWED*: No *COPY OF PRESCRIPTION DRUG MONITORING REPORT IN PATIENT ANTONIA: No Instructions: How to Use Cold Therapy Referrals: Loretta Lovell PA-C [Primary Care Provider] - Perry Pepe MD [Physician] - Forms: ED Department Discharge Additional Instructions: You were seen in the emergency department today for pain and swelling to her left leg. Venous Doppler ultrasound was completed and showed no evidence of a blood clot within the extremity. Recommend elevation of your lower extremities while at rest. You may also consider compression socks to help with the venous blood flow return. You should experience any new or worsening symptoms of concern, please not hesitate to return to the emergency department for reevaluation. Sepsis Event Note (ED) - Evaluation Sepsis Screening Result: No Definite Risk
--- NOTE | 2020-09-18 12:40 | US ---
Left lower extremity deep venous ultrasound: Duplex and color Doppler evaluation was obtained of the left common femoral, proximal greater saphenous, superficial femoral, popliteal, posterior tibial and peroneal veins. Right common femoral vein was also evaluated. Findings: Respiration was decreased throughout the left lower extremity. Normal blood flow is seen with normal compressibility and augmentation. Impression: 1. Slow flow with no findings of deep venous thrombosis within the left lower extremity or within the right common femoral vein. Diagnostic code #2
== END 2020-09-18 13:45 | disposition home or self-care (01) ==
LOC: JD.ED 11:14
DX: O99.891 Other specified diseases and conditions complicating pregnancy (principal); M79.605 Pain in left leg; O99.213 Obesity complicating pregnancy, third trimester; Z88.5 Allergy status to narcotic agent; Z3A.37 37 weeks gestation of pregnancy
CPT/HCPCS: 36415; 80053; 85025; 85379; 86140; 93971-26-LT; 93971-LT; 99284-25

== ENCOUNTER 2020-09-29 07:59 | Inpatient (IN) | payer BC ==
[~2020-09-29 07:59] MED LIST: Bupivacaine 0.25% 10 ML SDV ONE
[2020-09-29] MEDS ORDERED: Ondansetron 4 MG/2 ML SDV IVPUSH PRN ×2 (08:05→09:04)
[2020-09-29] MEDS ORDERED: Calcium Carbonate 500 MG Tab.Chew PO PRN (08:05)
[2020-09-29] MEDS ORDERED: Sodium Chloride 0.9% 10 ML Syringe FLUSH PRN (08:05)
[2020-09-29] MEDS ORDERED: Acetaminophen 325 MG Tab PO PRN (08:05)
[2020-09-29] MEDS ORDERED: Nalbuphine 10 MG/1 ML Vial IVPUSH PRN (08:05)
[2020-09-29] MEDS ORDERED: Ampicillin 2 GM in Sodium Chloride 0.9% 100 ML IV ONE (08:05)
[2020-09-29] MEDS ORDERED: Lidocaine 1% 50 ML MDV INJECT ONE (08:05)
[2020-09-29] MEDS ORDERED: Oxytocin/Lactated Ringers 10 UNIT/1,000 ML BAG IV SCH ×2 (08:15→15:56)
[2020-09-29] MEDS: Lactated Ringers 1,000 ML IV SCH ×3 (08:40→17:16)
[2020-09-29] MEDS ORDERED: fentaNYL 100 MCG/2 ML SDV EPIDUR PRN (09:04)
[2020-09-29] MEDS ORDERED: ePHEDrine 50 MG/ML SDV IVPUSH PRN (09:04)
--- NOTE | 2020-09-29 09:10 | PCM.PREANE ---
Preanesthetic Assessment - Procedure Proposed Procedure: Epidural - Anesthesia/Transfusion/Family Hx Anesthesia History: Prior Anesthesia Without Reaction Family History of Anesthesia Reaction: No Transfusion History: No Prior Transfusion(s) Intubation History: Unknown - Review of Systems General: No Symptoms Pulmonary: No Symptoms Cardiovascular: No Symptoms, Palpitations Gastrointestinal: No Symptoms (GERD) Neurological: No Symptoms, Headache (migraines) Other: Reports: None, Easy Bruising, Diabetes (Insulin resistence), Anxiety - Physical Assessment NPO Status Date: 09/28/20 NPO Status Time: 22:00 Vital Signs: HR: Sat: Temp: B/P: Resp: Height: 1.75 m Weight: 145.603 kg ASA Class: 3 Mental Status: Alert & Oriented x3 Airway Class: Mallampati = 3 Dentition: Reports: Normal Dentition, Caries Thyro-Mental Finger Breadths: 3 Mouth Opening Finger Breadths: 3 ROM/Head Extension: Full Lungs: Clear to Auscultation, Normal Respiratory Effort Cardiovascular: Regular Rate, Regular Rhythm, No Murmurs - Lab Values: Laboratory Last Values WBC 16.16 K/mm3 (3.98-10.04) H 09/29/20 08:20 RBC 4.15 M/mm3 (3.98-5.22) 09/29/20 08:20 Hgb 9.2 gm/dl (11.2-15.7) L 09/29/20 08:20 Hct 31.9 % (34.1-44.9) L 09/29/20 08:20 MCV 76.9 fl (79.4-94.8) L 09/29/20 08:20 MCH 22.2 pg (25.6-32.2) L 09/29/20 08:20 MCHC 28.8 g/dl (32.2-35.5) L 09/29/20 08:20 RDW Std Deviation 47.7 fL (36.4-46.3) H 09/29/20 08:20 Plt Count 414 K/mm3 (182-369) H 09/29/20 08:20 MPV 9.7 fl (9.4-12.3) 09/29/20 08:20 Neut % (Auto) 70.5 % (34.0-71.1) 09/29/20 08:20 Lymph % (Auto) 19.8 % (19.3-51.7) 09/29/20 08:20 Cassia % (Auto) 7.6 % (4.7-12.5) 09/29/20 08:20 Eos % (Auto) 1.5 (0.7-5.8) 09/29/20 08:20 Baso % (Auto) 0.2 % (0.1-1.2) 09/29/20 08:20 Neut # (Auto) 11.39 K/mm3 (1.56-6.13) H 09/29/20 08:20 Lymph # (Auto) 3.20 K/mm3 (1.18-3.74) 09/29/20 08:20 Cassia # (Auto) 1.23 K/mm3 (0.24-0.36) H 09/29/20 08:20 Eos # (Auto) 0.24 K/mm3 (0.04-0.36) 09/29/20 08:20 Baso # (Auto) 0.03 K/mm3 (0.01-0.08) 09/29/20 08:20 Manual Slide Review Abnormal smear 09/29/20 08:20 Above labs reviewed and noted and within acceptable ranges to proceed with epidural. - Imaging/EKG Impressions: EKG: Sinus Arrythmia rate=66 - Allergies Allergies/Adverse Reactions: Allergies Allergy/AdvReac Type Severity Reaction Status Date / Time codeine Allergy Severe Hives Verified 04/07/20 16:01 - Anesthesia Plan Pre-Op Medication Ordered: None - Acknowledgements Anesthesia Type Planned: Epidural Pt an Appropriate Candidate for the Planned Anesthesia: Yes Alternatives and Risks of Anesthesia Discussed w Pt/Guardian: Yes Pt/Guardian Understands and Agrees with Anesthesia Plan: Yes PreAnesthesia Questionnaire - Past Health History Medical/Surgical History: Denies Medical/Surgical History HEENT History: Reports: Allergic Rhinitis Other Gastrointestinal History: family history of colon anyrysm. [employer] History: Reports: , Spontaneous Other OB/BYN History: patiet is Neurological History: Reports: Migraines Other Neuro History: patient states induced headaches but no issues prior too. 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 - Infectious Disease History Infectious Disease History: Reports: Chicken Pox, MRSA Other Infectious Disease History: history of MRSA as a child in her elbow. screen and cleared by dr mckinney on 07/24/2019, 07/31/2019, 08/08/2019 - Past Surgical History HEENT Surgical History: Reports: Oral Surgery, Tonsillectomy Female Surgical History: Reports: D&C - HOME MEDS Home Medications: Home Meds Vits #93/Iron Fum/FA [ Formula Tablet] 1 tab PO DAILY 03/02/20 [History] - CURRENT (IN HOUSE) MEDS Current Meds: Current Medications Acetaminophen (Tylenol) 650 mg PO Q4H PRN PRN Reason: Pain (Mild 1-3) and fever Calcium Carbonate/Glycine (Tums) 1,000 mg PO Q2H PRN PRN Reason: Indigestion Ephedrine Sulfate (Ephedrine Sulfate) 5 mg IVPUSH ASDIRECTED PRN PRN Reason: Hypotension Fentanyl (Sublimaze) 100 mcg EPIDUR Q3H PRN PRN Reason: Pain Fentanyl/Bupivacaine HCl (Fentanyl/Bupivacaine/Ns 2 Mcg-0.125% 100 Ml) 100 ml EPIDUR ASDIRECTED WILLIE Ampicillin Sodium 1 gm/ Sodium (Chloride) 100 mls @ 200 mls/hr IV Q4H WILLIE Oxytocin/Lactated Ringer's (Pitocin In Lr 10 Units/1,000 Ml) 10 unit in 1,000 mls @ 500 mls/hr IV .CONTINUOUS WILLIE Lactated Ringer's (Ringers, Lactated) 1,000 mls @ 100 mls/hr IV ASDIRECTED WILLIE Last Admin: 09/29/20 08:40 Dose: 100 mls/hr Documented by: Miscellaneous Medication (Phenylephrine 1 Mg/10 Ml-Ns) 0 mg IVPUSH ONETIME ONE Stop: 09/29/20 09:05 Nalbuphine HCl (Nubain) 10 mg IVPUSH Q2H PRN PRN Reason: Pain Last Admin: 09/29/20 08:53 Dose: 10 mg Documented by: Ondansetron HCl (Zofran) 4 mg IVPUSH Q4H PRN PRN Reason: Nausea/Vomiting Ondansetron HCl (Zofran) 4 mg IVPUSH ONETIME PRN PRN Reason: Nausea/Vomiting Sodium Chloride (Saline Flush) 10 ml FLUSH ASDIRECTED PRN PRN Reason: Keep Vein Open Discontinued Medications Ampicillin Sodium 2 gm/ Sodium (Chloride) 100 mls @ 200 mls/hr IV ONETIME ONE Stop: 09/29/20 08:34 Last Admin: 09/29/20 08:43 Dose: 200 mls/hr Documented by: Lidocaine HCl (Xylocaine 1%) 20 ml INJECT ONETIME ONE Stop: 09/29/20 08:06
[2020-09-29] MEDS ORDERED: Bupivacaine/fentaNYL/NS 100 ML Bag EPIDUR SCH (09:15)
--- NOTE | 2020-09-29 09:31 | PCM.LDHP ---
L&D History of Present Illness - General Date of Service: 09/29/20 Admit Problem/Dx: Patient Status Order with Admit Dx/Problem 09/29/20 08:06 Patient Status [ADT] Routine Admission Diagnosis/Problem Admission Diagnosis/Problem Active labor Source of Information: Patient History Limitations: Reports: No Limitations - History of Present Illness Introduction:: Yessenia Forrest is a 20-year-old -0-1-1 female at 38 weeks 3 days (TANO 10/10/2020) by an 8-week ultrasound who presents with regular contractions and gush of fluid with concerns for possible rupture membranes. She reports that she had a moderate amount of watery discharge that occurred around 5:30 AM. She reports that it was different than her normal vaginal discharge that she had been having for the last week or so. She states that it was very watery and c lear in color. There was no odor to it. After she had the gush of fluid she had continuous leaking of fluid and contractions started to become more consistent. She was having contractions about every 5 to 7 minutes apart and they were getting stronger and more painful. She states she was having small amount of bleeding with the mucus discharge prior to her water breaking. She has not noticed significant amount of bleeding after her water broke. She reports good movement. Timing/Duration: Reports: gradual onset (After she had sudden gush of fluid earlier this morning), getting worse Location, : Reports: Lower back, Pelvic Quality: Reports: Pressure, Throbbing Severity: Severe Pain Score: 10 Worsens with: Reports: None Associated Symptoms: Reports: vaginal fluid, moderate amount. Denies: vaginal bleeding, vaginal discharge Present Illness Comments:: Yessenia Forrest is a 20-year-old -0-1-1 female at 38 weeks 3 days (TANO 10/10/2020) by an 8-week ultrasound who presents with active labor. Her has been complicated by West Nile virus infection during the and was seen by Dr. Brantley in given clearance for normal findings on ultrasound. She received the flu and Tdap shot on 07/28/2020. She had right- sided abdominal pain with an ultrasound done that showed a cyst in the upper pole of the right kidney measuring 3.2 x 2.6 cm as well as a nonobstructing kidney stone measuring 5 mm on the right side. She has a history of depression but is not on medication at this time. She had an anatomy ultrasound that was normal and did not show any abnormalities with the weighing at the 39th percentile on most recent ultrasound on 07/27/2020. She had an elevated 1 hour glucose tolerance test with a value of 132 and she did not get a 3-hour glucose tolerance test done. This is complicated by: * GBS bacteriuria found on initial urine culture, patient should be treated with antibiotics in labor * Elevated 1 hour glucose tolerance test with a value of 132 and 3-hour glucose tolerance test not done * Obesity in with BMI of 47.5 * History of vacuum extractor delivery in first * West Nile virus infection during with no concerns for the * Right sided upper pole kidney cyst measuring 3.2 x 2.6 cm with nonobstructing kidney stone measuring 5 mm [employer] history -0-1-1 G1: 07/15/2018, SAB at 9 weeks gestational age G2: 08/14/2019, 39 weeks 5 days, vacuum-assisted vaginal delivery, female infant, 6 pounds 15 ounces, epidural for anesthesia, no other complications G3: Current labs Blood type: A+ Antibody screen: Negative First trimester hematocrit/hemoglobin: 38.1%/11.6 on 03/18/2020 Platelets: 490 on 03/18/2020 Urine culture: GBS bacteriuria Rubella status: Immune Hepatitis B surface antigen: Negative RPR: Negative HIV: Negative Gonorrhea: Negative Chlamydia: Negative Anatomy ultrasound: Normal anatomy, no abnormalities, left lateral placenta, no previa, 39th percentile on most recent ultrasound on 07/27/2020 One hour glucose tolerance test: 132 Second trimester hematocrit/hemoglobin: 32.2%/9.7 on 07/28/2020 Platelets: 393 on 07/28/2020 GBS status: Positive by GBS bacteriuria in early - Related Data Allergies/Adverse Reactions: Allergies Allergy/AdvReac Type Severity Reaction Status Date / Time codeine Allergy Severe Hives Verified 04/07/20 16:01 Home Medications: Home Meds Vits #93/Iron Fum/FA [ Formula Tablet] 1 tab PO DAILY 03/02/20 [History] Past Medical History HEENT History: Reports: Allergic Rhinitis Other Gastrointestinal History: family history of colon aneurysm. 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 - Infectious Disease History Infectious Disease History: Reports: Chicken Pox, MRSA Other Infectious Disease History: history of MRSA as a child in her elbow. screen and cleared by dr mckinney on 07/24/2019, 07/31/2019, 08/08/2019 - Past Surgical History HEENT Surgical History: Reports: Oral Surgery, Tonsillectomy Female Surgical History: Reports: D&C Social & Family History - Family History Family Medical History: No Pertinent Family History Cardiac: Reports: Angina, Hypertension OBGYN: Reports: Other (See Below) Endocrine/Metabolic: Reports: Diabetes, type II - Tobacco Use Tobacco Use Status *Q: Never Tobacco User Tobacco Use Within Last Twelve Months: No - Tobacco Core Measures Tobacco Use/Smoking Within Last 30 Days: No Smokeless Tobacco Use in Last 30 Days: No - Caffeine Use Caffeine Use: Reports: Coffee Other Caffeine Use: One cup a day - Alcohol Use Alcohol Use History: No - Recreational Drug Use Recreational Drug Use: No Drug Use in Last 12 Months: No - Living Situation & Occupation Living situation: Reports: Single, with Significant Other (Boyfriend), with Family (Daughter) Occupation: Unemployed H&P Review of Systems - Review of Systems: Review Of Systems: See Below General: Denies: Fever, Chills, Malaise, Weakness, Fatigue, Night Sweats HEENT: Denies: Headaches, Rhinitis, Post Nasal Drip, Sinus Congestion, Sore Throat, Visual Changes Pulmonary: Denies: Shortness of Breath, Wheezing, Pleuritic Chest Pain, Cough Cardiovascular: Denies: Chest Pain, Palpitations, Dyspnea on Exertion, Orthopnea Gastrointestinal: Denies: Abdominal Pain, Constipation, Diarrhea, Nausea, Vomiting Genitourinary: Denies: Dysuria, Frequency, Burning, Pain, Urgency Skin: Denies: Rash, Lesions Psychiatric: Reports: Anxiety (Regarding labor). Denies: Depression Neurological: Denies: Headache L&D Exam - Exam Exam: See Below - Vital Signs Weight: 145.603 kg - OB Specific Contraction Duration (sec): 45-60 Contraction Frequency (min): 4-5 Contraction Intensity: Strong Movement: Active Heart Tones: Present Heart Tones per Min: 155 (+15 x 15 accelerations, intermittent variable decelerations and intermittent early decelerations) Heart Rate (FHR) Variability: Moderate (6-25 bmp) Presentation: Vertex Estimated Weight: 6 to 7 pounds by Riaz's, difficult to assess due to body habitus - Lo Score Lo Score Cervix Position: Anterior Lo Score Consistency: Soft Lo Score Effacement: >80% (90%) Lo Score Dilation: > 5 cm (6 cm) Lo Score 's Station: -2 Lo Score Total: 11 - Exam General: Alert, Oriented HEENT: Conjunctiva Clear, EOMI Neck: Supple, Trachea Midline Lungs: Clear to Auscultation, Normal Respiratory Effort Cardiovascular: Regular Rate, Regular Rhythm GI/Abdominal Exam: Soft, Non-Tender, No Distention, Other (Obese). No: Guarding, Rigid, Rebound Genitourinary: Normal external exam, Other ( scalp electrode placed due to significant difficulty with monitoring heart rate using Doppler monitor) Skin: Warm, Dry, Intact Psychiatric: Alert, Normal Affect, Normal Mood - Patient Data Lab Results Last 24 hrs: Laboratory Results - last 24 hr 09/29/20 Range/Units 08:20 WBC 16.16 H (3.98-10.04) K/mm3 RBC 4.15 (3.98-5.22) M/mm3 Hgb 9.2 L (11.2-15.7) gm/dl Hct 31.9 L (34.1-44.9) % MCV 76.9 L (79.4-94.8) fl MCH 22.2 L (25.6-32.2) pg MCHC 28.8 L (32.2-35.5) g/dl RDW Std Deviation 47.7 H (36.4-46.3) fL Plt Count 414 H (182-369) K/mm3 MPV 9.7 (9.4-12.3) fl Neut % (Auto) 70.5 (34.0-71.1) % Lymph % (Auto) 19.8 (19.3-51.7) % Traill % (Auto) 7.6 (4.7-12.5) % Eos % (Auto) 1.5 (0.7-5.8) Baso % (Auto) 0.2 (0.1-1.2) % Neut # (Auto) 11.39 H (1.56-6.13) K/mm3 Lymph # (Auto) 3.20 (1.18-3.74) K/mm3 Traill # (Auto) 1.23 H (0.24-0.36) K/mm3 Eos # (Auto) 0.24 (0.04-0.36) K/mm3 Baso # (Auto) 0.03 (0.01-0.08) K/mm3 Manual Slide Review Abnormal smear Result Diagrams: 09/29/20 08:20 - Problem List (1) 38 weeks gestation of SNOMED Code(s): 88355230 ICD Code: Z3A.38 - 38 WEEKS GESTATION OF Status: Acute Current Visit: Yes (2) Abnormal glucose tolerance test (GTT) during , antepartum Status: Acute Current Visit: Yes (3) GBS bacteriuria SNOMED Code(s): 68577893 ICD Code: R82.71 - BACTERIURIA Status: Acute Current Visit: Yes (4) History of vacuum extraction assisted delivery SNOMED Code(s): 690077519 ICD Code: Z87.59 - PERSONAL HISTORY OF COMP OF PREG, CHLDBRTH AND THE PUERP Status: Acute Current Visit: Yes (5) Hx of delivery by vacuum extraction, currently SNOMED Code(s): 888000558, 217731546 ICD Code: O09.299 - SUPRVSN OF PREG W POOR REPRODCTV OR OBSTET HISTORY, UNSP TRI Status: Acute Current Visit: Yes (6) Obesity affecting SNOMED Code(s): 537568458872, 458259840218 ICD Code: O99.210 - OBESITY COMPLICATING , UNSPECIFIED TRIMESTER Status: Acute Current Visit: Yes Problem List Initiated/Reviewed/Updated: Yes Orders Last 24hrs: Active Orders 24 hr Category Date Time Status Patient Status [ADT] Routine ADT 09/29/20 08:06 Active Activity as Tolerated [RC] PFP Care 09/29/20 08:05 Active Communication Order [RC] ASDIRECTED Care 09/29/20 08:05 Active Heart Tones [RC] ASDIRECTED Care 09/29/20 08:06 Active Non Stress Test [RC] PER UNIT ROUTINE Care 09/29/20 08:05 Active Notify Provider [RC] ASDIRECTED Care 09/29/20 09:04 Active Notify Provider [RC] PFP Care 09/29/20 08:05 Active Notify Provider [RC] PRN Care 09/29/20 08:05 Active Oxygen Therapy [RC] ASDIRECTED Care 09/29/20 09:04 Active Peripheral IV Care [RC] . DIRECTED Care 09/29/20 08:06 Active Pulse Oximetry [RC] ASDIRECTED Care 09/29/20 09:04 Active Pump Management, Intrathecal [RC] ASDIRECTED Care 09/29/20 08:06 Active Urinary Catheter Assessment [RC] ASDIRECTED Care 09/29/20 08:05 Active Vital Signs [RC] PER UNIT ROUTINE Care 09/29/20 08:05 Active Regular Diet [DIET] Diet 09/29/20 Breakfast Active CORONAVIRUS COVID-19 LES [MOLEC] Stat Lab 09/29/20 08:45 Received RAPID PLASMA REAGIN,RPR [CHEM] Routine Lab 09/29/20 08:20 Received TYPE AND SCREEN [BBK] Stat Lab 09/29/20 08:20 Received Acetaminophen [TylenoL] Med 09/29/20 08:05 Active 650 mg PO Q4H PRN Ampicillin 1 gm Med 09/29/20 12:00 Active Sodium Chloride 0.9% [Normal Saline] 100 ml IV Q4H Bupivacaine/fentaNYL/NS [fentaNYL/Bupivacaine/NS 2 MCG- Med 09/29/20 09:15 Active 0.125% 100 ML] 100 ml EPIDUR ASDIRECTED Calcium Carbonate [Tums] Med 09/29/20 08:05 Active 1,000 mg PO Q2H PRN Lactated Ringers [Ringers, Lactated] 1,000 ml Med 09/29/20 08:15 Active IV ASDIRECTED Nalbuphine [Nubain] Med 09/29/20 08:05 Active 10 mg IVPUSH Q2H PRN Ondansetron [Zofran] Med 09/29/20 09:04 Active 4 mg IVPUSH ONETIME PRN Ondansetron [Zofran] Med 09/29/20 08:05 Active 4 mg IVPUSH Q4H PRN Oxytocin/Lactated Ringers [Pitocin in LR 10 Units/1,000 Med 09/29/20 08:15 Active ML] 10 unit in 1,000 ml IV .CONTINUOUS Sodium Chloride 0.9% [Saline Flush] Med 09/29/20 08:05 Active 10 ml FLUSH ASDIRECTED PRN ePHEDrine [ePHEDrine sulfate] Med 09/29/20 09:04 Active 5 mg IVPUSH ASDIRECTED PRN fentaNYL [Sublimaze] Med 09/29/20 09:04 Active 100 mcg EPIDUR Q3H PRN Electronic Heart Tones Ext w TOCO [WOMSER] Oth 09/29/20 08:05 Ordered Routine Electronic Heart Tones Internal [WOMSER] Per Unit Oth 09/29/20 08:05 Ordered Routine Peripheral IV Insertion Adult [OM.PC] Routine Oth 09/29/20 08:05 Ordered Resuscitation Status Routine Resus Stat 09/29/20 08:05 Ordered Medication Orders Acetaminophen (Tylenol) 650 mg PO Q4H PRN PRN Reason: Pain (Mild 1-3) and fever Calcium Carbonate/Glycine (Tums) 1,000 mg PO Q2H PRN PRN Reason: Indigestion Ephedrine Sulfate (Ephedrine Sulfate) 5 mg IVPUSH ASDIRECTED PRN PRN Reason: Hypotension Fentanyl (Sublimaze) 100 mcg EPIDUR Q3H PRN PRN Reason: Pain Last Admin: 09/29/20 09:21 Dose: 100 mcg Documented by: TEOFILO Fentanyl/Bupivacaine HCl (Fentanyl/Bupivacaine/Ns 2 Mcg-0.125% 100 Ml) 100 ml EPIDUR ASDIRECTED WILLIE Last Admin: 09/29/20 09:21 Dose: 100 ml Documented by: TEOFILO Ampicillin Sodium 1 gm/ Sodium (Chloride) 100 mls @ 200 mls/hr IV Q4H WILLIE Oxytocin/Lactated Ringer's (Pitocin In Lr 10 Units/1,000 Ml) 10 unit in 1,000 mls @ 500 mls/hr IV .CONTINUOUS WILLIE Lactated Ringer's (Ringers, Lactated) 1,000 mls @ 100 mls/hr IV ASDIRECTED WILLIE Last Admin: 09/29/20 09:11 Dose: 100 mls/hr Documented by: Infusion: 09/29/20 09:11 Dose: 100 mls/hr Documented by: Admin: 09/29/20 08:40 Dose: 100 mls/hr Documented by: TEOFILO Nalbuphine HCl (Nubain) 10 mg IVPUSH Q2H PRN PRN Reason: Pain Last Admin: 09/29/20 08:53 Dose: 10 mg Documented by: TEOFILO Ondansetron HCl (Zofran) 4 mg IVPUSH Q4H PRN PRN Reason: Nausea/Vomiting Ondansetron HCl (Zofran) 4 mg IVPUSH ONETIME PRN PRN Reason: Nausea/Vomiting Sodium Chloride (Saline Flush) 10 ml FLUSH ASDIRECTED PRN PRN Reason: Keep Vein Open Assessment/Plan Comment:: Yessenia Forrest is a 20-year-old -0-1-1 female at 38 weeks 3 days (TANO 10/10/2020) who presents with active labor and spontaneous rupture of membranes complicated by GBS bacteriuria, elevated 1 hour glucose tolerance test without 3-hour glucose tolerance test, maternal obesity with BMI of 47.5, history of vacuum extractor delivery, West Nile virus during and right sided kidney cyst and nonobstructing kidney stone Refer to observation for spontaneous rupture of membranes Start Pitocin for augmentation of labor if her contractions begin to space out or if she does not have cervical change Continuous monitoring Place IV and have Lactated Ringer's at 125 ml/hr May have small amounts of regular diet Activity as tolerated Patient with epidural in place and providing good anesthesia Check fingerstick blood glucose value due to elevated 1 hour glucose test and not having 3-hour glucose test done Start on ampicillin 2 g now and have 1 g every 4 hours after for GBS prophylaxis Anticipate vaginal delivery unless otherwise indicated Oliver Peña MD 10:26 AM 09/29/2020
[2020-09-29] MEDS ORDERED: Ampicillin 1 GM in Sodium Chloride 0.9% 100 ML IV SCH (12:00)
--- NOTE | 2020-09-29 15:29 | PCM.DEL ---
L & D Note - General Info Date of Service: 09/29/20 Mother's Due Date: 10/10/20 - Delivery Note Labor: Spontaneous Delivery Outcome: Livebirth Infant Delivery Method: Spontaneous Vaginal Delivery-Single Presentation: Right Occiput Anterior (MIKE) Nuchal Cord: Present (x1), Reduced Anesthesia Type: Epidural Amniotic Fluid Description: Clear Laceration: 1st Degree (medial right labia minora, hemostatic, not repaired) Placenta: Intact, Spontaneous Cord: 3 Vessels Estimated Blood Loss: 350 Resuscitation Needed: Yes [place]: Suctioned, Bulb Syringe, Stimulated, Warmed, [place] Used, Warmer Used Provider: Oliver Peña Score 1 min: 6 Score 5 min: 8 Delivery Comments (Free Text/Narrative):: Stage I: Yessenia Forrest was admitted for spontaneous rupture membranes with clear fluid at home. On admission her cervix was dilated to 6 cm. She was GBS positive and was started on ampicillin for GBS prophylaxis. She received 2 doses of ampicillin prior to delivery. She was given an epidural for anesthesia. She had placement of a scalp electrode for monitoring of heart rate due to difficulty related to maternal body habitus. She progressed to complete and pushing. During pushing she developed a fever of 104.1 F approximately 30 minutes prior to delivery. It was felt that with the elevated heart rate as well as maternal temperature that she had chorioamnionitis. Due to close timing of delivery and recent administration of ampicillin for GBS prophylaxis it was felt that additional dosing with the gentamicin would not occur in time to be beneficial to the patient or . She continued with pushing until delivery. Stage II: On 09/29/2020 she had a normal vaginal delivery of a live female at 14:48. Apgars of 6 & 8. Weight of 2850 g (6 lbs 4.5 oz). There was a single nuchal cord that was reduced prior to delivery. Infant was delivered in MIKE position. The cord was doubly clamped and cut by father the . Infant was taken to the warmer for resuscitation shortly after delivery. Stage III: She had a spontaneous delivery of an intact placenta in [place] presentation. Three vessel cord. She was given pitocin and fundal massage. She had a first-degree right medial labia minora laceration that was hemostatic and not repaired. Mom was stable to recovery. Infant was taken to the nursery for further evaluation and resuscitation. EBL of 350 mL. Oliver Peña MD 3:25 PM 09/29/2020 - General Info Date of Service: 09/29/20 - Patient Data Vitals - Most Recent: Last Vital Signs Temp 37.0 C 09/29/20 08:21 Pulse 98 09/29/20 08:21 Resp 20 09/29/20 08:21 BP 127/59 L 09/29/20 08:21 Pulse Ox 99 09/29/20 08:21 Weight - Most Recent: 145.603 kg Lab Results Last 24 Hours: Laboratory Results - last 24 hr 09/29/20 09/29/20 09/29/20 Range/Units 08:20 08:20 08:45 WBC 16.16 H (3.98-10.04) K/mm3 RBC 4.15 (3.98-5.22) M/mm3 Hgb 9.2 L (11.2-15.7) gm/dl Hct 31.9 L (34.1-44.9) % MCV 76.9 L (79.4-94.8) fl MCH 22.2 L (25.6-32.2) pg MCHC 28.8 L (32.2-35.5) g/dl RDW Std Deviation 47.7 H (36.4-46.3) fL Plt Count 414 H (182-369) K/mm3 MPV 9.7 (9.4-12.3) fl Neut % (Auto) 70.5 (34.0-71.1) % Lymph % (Auto) 19.8 (19.3-51.7) % Dare % (Auto) 7.6 (4.7-12.5) % Eos % (Auto) 1.5 (0.7-5.8) Baso % (Auto) 0.2 (0.1-1.2) % Neut # (Auto) 11.39 H (1.56-6.13) K/mm3 Lymph # (Auto) 3.20 (1.18-3.74) K/mm3 Dare # (Auto) 1.23 H (0.24-0.36) K/mm3 Eos # (Auto) 0.24 (0.04-0.36) K/mm3 Baso # (Auto) 0.03 (0.01-0.08) K/mm3 Manual Slide Review Abnormal smear POC Glucose (70-105) mg/dL SARS-CoV-2 RNA (LES) Negative (NEGATIVE) Blood Type A POSITIVE Gel Antibody Screen Negative 09/29/20 Range/Units 12:00 WBC (3.98-10.04) K/mm3 RBC (3.98-5.22) M/mm3 Hgb (11.2-15.7) gm/dl Hct (34.1-44.9) % MCV (79.4-94.8) fl MCH (25.6-32.2) pg MCHC (32.2-35.5) g/dl RDW Std Deviation (36.4-46.3) fL Plt Count (182-369) K/mm3 MPV (9.4-12.3) fl Neut % (Auto) (34.0-71.1) % Lymph % (Auto) (19.3-51.7) % Dare % (Auto) (4.7-12.5) % Eos % (Auto) (0.7-5.8) Baso % (Auto) (0.1-1.2) % Neut # (Auto) (1.56-6.13) K/mm3 Lymph # (Auto) (1.18-3.74) K/mm3 Dare # (Auto) (0.24-0.36) K/mm3 Eos # (Auto) (0.04-0.36) K/mm3 Baso # (Auto) (0.01-0.08) K/mm3 Manual Slide Review POC Glucose 85 (70-105) mg/dL SARS-CoV-2 RNA (LES) (NEGATIVE) Blood Type Gel Antibody Screen Med Orders - Current: Current Medications Acetaminophen (Tylenol) 650 mg PO Q4H PRN PRN Reason: Pain (Mild 1-3) and fever Calcium Carbonate/Glycine (Tums) 1,000 mg PO Q2H PRN PRN Reason: Indigestion Ephedrine Sulfate (Ephedrine Sulfate) 5 mg IVPUSH ASDIRECTED PRN PRN Reason: Hypotension Fentanyl (Sublimaze) 100 mcg EPIDUR Q3H PRN PRN Reason: Pain Last Admin: 09/29/20 09:21 Dose: 100 mcg Documented by: Fentanyl/Bupivacaine HCl (Fentanyl/Bupivacaine/Ns 2 Mcg-0.125% 100 Ml) 100 ml EPIDUR ASDIRECTED [facility] Last Admin: 09/29/20 09:21 Dose: 100 ml Documented by: Ampicillin Sodium 1 gm/ Sodium (Chloride) 100 mls @ 200 mls/hr IV Q4H [facility] Last Admin: 09/29/20 12:15 Dose: 200 mls/hr Documented by: Oxytocin/Lactated Ringer's (Pitocin In Lr 10 Units/1,000 Ml) 10 unit in 1,000 mls @ 500 mls/hr IV .CONTINUOUS [facility] Lactated Ringer's (Ringers, Lactated) 1,000 mls @ 100 mls/hr IV ASDIRECTED [facility] Last Admin: 09/29/20 09:11 Dose: 100 mls/hr Documented by: Nalbuphine HCl (Nubain) 10 mg IVPUSH Q2H PRN PRN Reason: Pain Last Admin: 09/29/20 08:53 Dose: 10 mg Documented by: Ondansetron HCl (Zofran) 4 mg IVPUSH Q4H PRN PRN Reason: Nausea/Vomiting Ondansetron HCl (Zofran) 4 mg IVPUSH ONETIME PRN PRN Reason: Nausea/Vomiting Sodium Chloride (Saline Flush) 10 ml FLUSH ASDIRECTED PRN PRN Reason: Keep Vein Open Discontinued Medications Ampicillin Sodium 2 gm/ Sodium (Chloride) 100 mls @ 200 mls/hr IV ONETIME ONE Stop: 09/29/20 08:34 Last Admin: 09/29/20 08:43 Dose: 200 mls/hr Documented by: Lidocaine HCl (Xylocaine 1%) 20 ml INJECT ONETIME ONE Stop: 09/29/20 08:06 Last Admin: 09/29/20 11:16 Dose: Not Given Documented by: Miscellaneous Medication (Phenylephrine 1 Mg/10 Ml-Ns) 0 mg IVPUSH ONETIME ONE Stop: 09/29/20 09:05 Last Admin: 09/29/20 11:16 Dose: Not Given Documented by: - Problem List & Annotations (1) 38 weeks gestation of SNOMED Code(s): 69089547 Code(s): Z3A.38 - 38 WEEKS GESTATION OF Status: Acute Current Visit: Yes (2) Abnormal glucose tolerance test (GTT) during , antepartum Status: Acute Current Visit: Yes (3) GBS bacteriuria SNOMED Code(s): 08777270 Code(s): R82.71 - BACTERIURIA Status: Acute Current Visit: Yes (4) History of vacuum extraction assisted delivery SNOMED Code(s): 981628648 Code(s): Z87.59 - PERSONAL HISTORY OF COMP OF PREG, CHLDBRTH AND THE PUERP Status: Acute Current Visit: Yes (5) Hx of delivery by vacuum extraction, currently SNOMED Code(s): 210548755, 926493109 Code(s): O09.299 - SUPRVSN OF PREG W POOR REPRODCTV OR OBSTET HISTORY, UNSP TRI Status: Acute Current Visit: Yes (6) Obesity affecting SNOMED Code(s): 568865308284, 124641555609 Code(s): O99.210 - OBESITY COMPLICATING , UNSPECIFIED TRIMESTER Status: Acute Current Visit: Yes (7) Chorioamnionitis, delivered, current hospitalization SNOMED Code(s): 21950867, 741987128 Code(s): O41.1290 - CHORIOAMNIONITIS, UNSP TRIMESTER, NOT APPLICABLE OR UNSP Status: Acute Current Visit: Yes (8) Vaginal delivery SNOMED Code(s): 375390042 Code(s): O80 - ENCOUNTER FOR FULL-TERM UNCOMPLICATED DELIVERY Status: Acute Current Visit: Yes - Problem List Review Problem List Initiated/Reviewed/Updated: Yes - My Orders Last 24 Hours: My Active Orders 09/29/20 Breakfast Regular Diet [DIET] 09/29/20 08:05 Activity as Tolerated [RC] PFP Communication Order [RC] ASDIRECTED Notify Provider [RC] PFP Notify Provider [RC] PRN Urinary Catheter Assessment [RC] ASDIRECTED Vital Signs [RC] PER UNIT ROUTINE Acetaminophen [TylenoL] 650 mg PO Q4H PRN Calcium Carbonate [Tums] 1,000 mg PO Q2H PRN Nalbuphine [Nubain] 10 mg IVPUSH Q2H PRN Ondansetron [Zofran] 4 mg IVPUSH Q4H PRN Sodium Chloride 0.9% [Saline Flush] 10 ml FLUSH ASDIRECTED PRN Electronic Heart Tones Ext w TOCO [WOMSER] Routine Electronic Heart Tones Internal [WOMSER] Per Unit Routine Peripheral IV Insertion Adult [OM.PC] Routine Resuscitation Status Routine 09/29/20 08:06 Patient Status [ADT] Routine Peripheral IV Care [RC] . DIRECTED Pump Management, Intrathecal [RC] ASDIRECTED 09/29/20 08:15 Lactated Ringers [Ringers, Lactated] 1,000 ml IV ASDIRECTED Oxytocin/Lactated Ringers [Pitocin in LR 10 Units/1,000 ML] 10 unit in 1,000 ml IV .CONTINUOUS 09/29/20 08:20 RAPID PLASMA REAGIN,RPR [CHEM] Routine 09/29/20 10:06 Blood Glucose Check, Bedside [RC] ONETIME 09/29/20 12:00 Ampicillin 1 gm Sodium Chloride 0.9% [Normal Saline] 100 ml IV Q4H - Plan Plan:: Yessenia Forrest is a 20-year-old now -1-0-2 female status post with development of chorioamnionitis during pushing, PPD #0, complicated by GBS bacteriuria with 2 doses of ampicillin prior to delivery, elevated 1 hour glucose tolerance test without 3-hour glucose tolerance test and a normal fingerstick blood glucose value during labor, maternal obesity with BMI of 47.5, history of vacuum extractor delivery, West Nile virus during and right sided kidney cyst and nonobstructing kidney stone Admit to inpatient following normal spontaneous vaginal delivery Continue Pitocin per unit protocol following delivery of placenta and lactated Ringer's until tolerating regular diet Regular diet Vitals per unit routine Ibuprofen and Tylenol for pain control Assist with breast-feeding as needed Continue to monitor lochia Anticipate discharge home on day #1 or #2 depending on status Oliver Peña MD 3:28 PM 09/29/2020
[2020-09-29] MEDS ORDERED: Hydrocortisone Acetate 25 MG Supp RECTAL PRN (15:56)
[2020-09-29] MEDS ORDERED: Witch Hazel Medicated Pads 40/Jar TOP PRN (15:56)
[2020-09-29] MEDS ORDERED: Benzocaine/Menthol 20%-0.5% Spray 56 GM Canister TOP PRN (15:56)
[2020-09-29] MEDS: Ibuprofen 600 MG Tab PO PRN (17:10)
[2020-09-29] MEDS: Acetaminophen 325 MG Tab PO PRN (19:28)
[2020-09-29] MEDS ORDERED: Magnesium Hydroxide 400 MG/5 ML Susp 30 ML Cup PO PRN (21:00)
[2020-09-30] MEDS: Acetaminophen 325 MG Tab PO PRN ×3 (03:20→19:22)
[2020-09-30] MEDS ORDERED: Ferrous Sulfate 324 MG Tab.EC PO SCH (07:00)
--- NOTE | 2020-09-30 07:51 | PCM48HPAN ---
Post Anesthesia Note - EVALUATION WITHIN 48HRS OF ANESTHETIC Vital Signs in Normal Range: Yes Patient Participated in Evaluation: Yes Respiratory Function Stable: Yes Airway Patent: Yes Cardiovascular Function Stable: Yes Hydration Status Stable: Yes Pain Control Satisfactory: Yes Nausea and Vomiting Control Satisfactory: Yes Mental Status Recovered: Yes Vital Signs: Last Vital Signs Temp 36.8 C 09/30/20 03:00 Pulse 88 09/30/20 03:00 Resp 17 09/30/20 03:00 BP 104/64 09/30/20 03:00 Pulse Ox 99 09/30/20 03:00 - COMMENTS/OBSERVATIONS Free Text/Narrative:: no anesthesia complications noted
[2020-09-30] MEDS: Prenatal Multivitamin with Calcium/Folic Acid/Iron Tab PO SCH (08:06)
[2020-09-30] MEDS: Ibuprofen 600 MG Tab PO PRN ×2 (08:06→13:57)
--- NOTE | 2020-09-30 08:13 | PCM.SN.2 ---
- Free Text/Narrative Note: Post Progress Note PPD #1 Subjective: Doing well overall. Ambulating without difficulty. Lochia minimal and decreasing since yesterday. Voiding without difficulty. Tolerating regular diet without nausea or vomiting. Pain controlled with oral medications. Pumping breastmilk with minimal difficulty. Reports that she is having some mild cramping with pumping. Denies any fevers or chills. Objective: Vitals: Vital Signs - 24 hr 09/29/20 09/30/20 19:17 03:00 Temperature 36.7 C Temperature [ 36.8 C Oral] Temperature [ Temporal] Pulse, 93 Peripheral Pulse, 88 Peripheral [ Pulse Oximetry] Respiratory 18 17 Rate Blood Pressure 110/44 L Blood Pressure 104/64 [Left] O2 Sat by Pulse 95 99 Oximetry Physical Exam General: Alert and oriented, no acute distress Lungs: Clear to auscultation bilaterally Heart: Regular rate and rhythm Abdomen: Soft, minimal appropriate tenderness, non-distended, fundus midline, nontender, and at the umbilicus Extremities: No edema ASSESSMENT: 20-year-old female -0-1-2 s/p normal vaginal delivery with development of chorioamnionitis during pushing PPD #1, complicated by GBS bacteriuria with 2 doses of ampicillin prior to delivery, elevated 1 hour glucose tolerance test without 3-hour glucose tolerance test and a normal fingerstick blood glucose value during labor, maternal obesity with BMI of 47.5, history of vacuum extractor delivery, West Nile virus during and right sided kidney cyst with nonobstructing kidney stone PLAN: Doing well Pumping breastmilk with minimal difficulty. Assist as needed Lochia minimal. Continue to monitor for appropriate lochia. Continue routine care Anticipate discharge home tomorrow Oliver Peña MD 8:12 AM 09/30/2020
[2020-09-30] MEDS: Ferrous Sulfate 324 MG Tab.EC PO SCH ×2 (11:25→18:02)
[2020-09-30] MEDS: Docusate Sodium 100 MG Cap PO PRN (13:57)
--- NOTE | 2020-09-30 17:39 | PCM.SN.2 ---
- Free Text/Narrative Note: S: Nurse called earlier this afternoon with concern about patient's lower abdominal skin. Reported that she was seeing some swelling with indurated areas. He reported that it was tender to the touch per patient's report. Noted that there was some areas that were slightly red as well. Patient reports that this area has been somewhat painful and she noticed this after she took a bath earlier this afternoon. She notes that the area in the lower abdomen is quite tender to touch and that it is swollen like it was during the . She denies it feeling warm. She denies any fevers or chills. Denies any discharge from the skin. She is otherwise doing well regarding course. She is increasing activity and walking without difficulty. She is tolerating a regular diet without any nausea or vomiting. She is urinating without difficulty. She notes that her lochia is minimal and continues to decrease throughout the day. She is pumping without difficulty. O: Vital Signs - 8 hr 09/30/20 15:20 Temperature 36.2 C Pulse, 75 Peripheral Respiratory 17 Rate Blood Pressure 130/71 O2 Sat by Pulse 98 Oximetry General: No acute distress, alert and oriented Lungs: Nonlabored breathing Abdomen: Lower portion of the pannus with induration and edema noted in the dependent portion of the pannus, mild erythema noted along the lower portion of the pannus. The area of erythema was marked with a skin marking pen, uterine fundus was nontender, fundus was at the umbilicus, no other skin abnormalities noted Extremities: Trace edema noted in bilateral lower extremities to the ankles A/P 20-year-old -0-1-2 s/p normal vaginal delivery with development of chorioamnionitis during pushing PPD #1, complicated by GBS bacteriuria with 2 doses of ampicillin prior to delivery, elevated 1 hour glucose tolerance test without 3-hour glucose tolerance test and a normal fingerstick blood glucose value during labor, maternal obesity with BMI of 47.5, history of vacuum extractor delivery, West Nile virus during and right sided kidney cyst with nonobstructing kidney stone * Affected area of erythema may be due to irritation on the skin. The area of erythema was marked with a skin marking pen. If there is any extension of the erythema we will start patient on antibiotics for treatment of suspected cellulitis of the skin * Area with induration suspected to be due to dependent edema related to the . The edema will likely resolve on its own over the next several days to 1 week * Continue close monitoring. * Routine vitals * Plan repeat CBC in the morning to monitor her her WBC count to ensure that it is resolving and improving * Anticipate discharge home on PPD #2 Oliver Peña MD 5:41 PM 09/30/2020
[2020-10-01] MEDS: Docusate Sodium 100 MG Cap PO PRN (08:55)
[2020-10-01] MEDS: Ibuprofen 600 MG Tab PO PRN (08:55)
[2020-10-01] MEDS: Prenatal Multivitamin with Calcium/Folic Acid/Iron Tab PO SCH (08:56)
[2020-10-01] MEDS: Ferrous Sulfate 324 MG Tab.EC PO SCH ×2 (08:56→12:04)
--- NOTE | 2020-10-01 09:29 | PCM.SN.2 ---
- Free Text/Narrative Note: Post Progress Note PPD #2 Subjective: Doing well overall. Ambulating without difficulty. Lochia minimal and slightly increased this morning but was only a small amount on the pad when she checked. Voiding without difficulty. Tolerating regular diet without nausea or vomiting. Pain controlled with oral medications. Pumping breastmilk with minimal difficulty. Reports that she is continuing to have some mild cramping with pumping. Denies any fevers or chills. Reports that the edema and pain on her p annus improves when she is laying down but that it will get somewhat worse when she is sitting up. She denies the area feeling warm to touch Objective: Vitals: Vital Signs - 24 hr 09/30/20 09/30/20 09/30/20 15:20 20:45 20:56 Temperature 36.2 C 36.6 C Pulse, 75 77 Peripheral Respiratory 17 17 Rate Blood Pressure 130/71 139/60 O2 Sat by Pulse 98 96 Oximetry 10/01/20 10/01/20 02:58 03:00 Temperature 36.9 C Pulse, 83 Peripheral Respiratory 16 Rate Blood Pressure 116/64 O2 Sat by Pulse 97 Oximetry Physical Exam General: Alert and oriented, no acute distress Lungs: Clear to auscultation bilaterally Heart: Regular rate and rhythm Abdomen: Soft, minimal appropriate tenderness, non-distended, fundus midline, nontender, and 1 fingerbreadth below the umbilicus. Lower pannus with previous demarcation line drawn around erythema on the pannus. Erythema has receded within this area of concern on the pannus. There is minimal induration and edematous tissue present. Erythema is decreased since last evening. Mild tenderness to touch but decreased from last evening. Extremities: Trace edema in bilateral lower extremities to ankles ASSESSMENT: 20-year-old female -0-1-2 s/p normal vaginal delivery with development of chorioamnionitis during pushing and infant with GBS sepsis PPD #2, complicated by GBS bacteriuria with 2 doses of ampicillin prior to delivery, elevated 1 hour glucose tolerance test without 3-hour glucose tolerance test and a normal fingerstick blood glucose value during labor, maternal obesity with BMI of 47.5, history of vacuum extractor delivery, West Nile virus during and right sided kidney cyst with nonobstructing kidney stone PLAN: * Doing well * admitted to the nursery for monitoring and antibiotic treatment in the setting of GBS sepsis. Patient should be considered GBS colonized for all future pregnancies. * Pumping breastmilk with minimal difficulty. Assist as needed * Lochia minimal. Continue to monitor for appropriate lochia. * Continue routine care * The amount of induration and erythema on her abdomen has decreased since last evening and has continued to be within the line that was drawn on her pannus. The white count and neutrophil count had decreased on her CBC this morning. Do not suspect cellulitis at this time but we will have the patient monitor closely for any worsening of the pain, erythema or warmth of the skin. * Patient reports history of anxiety and depression that was treated with Prozac. She states that this medication worked well for her. We will start her on Prozac at this time. * Discharge home today Oliver Peña MD 9:21 AM 10/01/2020
--- NOTE | 2020-10-01 10:10 | PCM.DCSUM1 ---
Discharge Summary - Hospital Course Free Text/Narrative:: - General Info Date of Service: 09/29/20 Mother's Due Date: 10/10/20 - Delivery Note Labor: Spontaneous Delivery Outcome: Livebirth Infant Delivery Method: Spontaneous Vaginal Delivery-Single Presentation: Right Occiput Anterior (MIKE) Nuchal Cord: Present (x1), Reduced Anesthesia Type: Epidural Amniotic Fluid Description: Clear Laceration: 1st Degree (medial right labia minora, hemostatic, not repaired) Placenta: Intact, Spontaneous Cord: 3 Vessels Estimated Blood Loss: 350 Resuscitation Needed: Yes : Suctioned, Bulb Syringe, Stimulated, Warmed, [place] Used, Warmer Used Provider: Oliver Peña Score 1 min: 6 Score 5 min: 8 Delivery Comments (Free Text/Narrative):: Stage I: Yessenia Forrest was admitted for spontaneous rupture membranes with clear fluid at home. On admission her cervix was dilated to 6 cm. She was GBS positive and was started on ampicillin for GBS prophylaxis. She received 2 doses of ampicillin prior to delivery. She was given an epidural for anesthesia. She had placement of a scalp electrode for monitoring of heart rate due to difficulty related to maternal body habitus. She progressed to complete and pushing. During pushing she developed a fever of 104.1 F approximately 30 minutes prior to delivery. It was felt that with the elevated heart rate as well as maternal temperature that she had chorioamnionitis. Due to close timing of delivery and recent administration of ampicillin for GBS prophylaxis it was felt that additional dosing with the gentamicin would not occur in time to be beneficial to the patient or . She continued with pushing until delivery. Stage II: On 09/29/2020 she had a normal vaginal delivery of a live female infant at 14:48. Apgars of 6 & 8. Weight of 2850 g (6 lbs 4.5 oz). There was a single nuchal cord that was reduced prior to delivery. Infant was delivered in MIKE position. The cord was doubly clamped and cut by father the . Infant was taken to the warmer for resuscitation shortly after delivery. Stage III: She had a spontaneous delivery of an intact placenta in [place] presentation. Three vessel cord. She was given pitocin and fundal massage. She had a first-degree right medial labia minora laceration that was hemostatic and not repaired. Mom was stable to recovery. was taken to the nursery for further evaluation and resuscitation. EBL of 350 mL. Diagnosis: Stroke: No - Discharge Data Discharge Date: 10/01/20 Discharge Disposition: Home, Self-Care 01 Condition: Good - Referral to Home Health Primary Care Physician: Oliver Peña MD - Discharge Diagnosis/Problem(s) (1) 38 weeks gestation of SNOMED Code(s): 37306042 ICD Code: Z3A.38 - 38 WEEKS GESTATION OF Status: Acute Current Visit: Yes (2) Abnormal glucose tolerance test (GTT) during , antepartum Status: Acute Current Visit: Yes (3) GBS bacteriuria SNOMED Code(s): 07902264 ICD Code: R82.71 - BACTERIURIA Status: Acute Current Visit: Yes (4) History of vacuum extraction assisted delivery SNOMED Code(s): 359241662 ICD Code: Z87.59 - PERSONAL HISTORY OF COMP OF PREG, CHLDBRTH AND THE PUERP Status: Acute Current Visit: Yes (5) Hx of delivery by vacuum extraction, currently SNOMED Code(s): 802486516, 154333120 ICD Code: O09.299 - SUPRVSN OF PREG W POOR REPRODCTV OR OBSTET HISTORY, UNSP TRI Status: Acute Current Visit: Yes (6) Obesity affecting SNOMED Code(s): 776900781569, 742210880690 ICD Code: O99.210 - OBESITY COMPLICATING , UNSPECIFIED TRIMESTER Status: Acute Current Visit: Yes (7) Chorioamnionitis, delivered, current hospitalization SNOMED Code(s): 09244929, 584813685 ICD Code: O41.1290 - CHORIOAMNIONITIS, UNSP TRIMESTER, NOT APPLICABLE OR UNSP Status: Acute Current Visit: Yes (8) Vaginal delivery SNOMED Code(s): 827967000 ICD Code: O80 - ENCOUNTER FOR FULL-TERM UNCOMPLICATED DELIVERY Status: Acute Current Visit: Yes - Patient Summary/Data Complications: with development of GBS sepsis requiring antibiotic therapy Consults: None Hospital Course: Yessenia Forrest was admitted for spontaneous rupture membranes with clear fluid. On admission her cervix was dilated to 6 cm. She was GBS positive by GBS bacteria. She was started on ampicillin for GBS prophylaxis and received 2 doses of ampicillin prior to delivery. She was given an epidural for ane sthesia. She had a scalp electrode placed for monitoring of heart rate due to difficulty related to maternal body habitus. She progressed to complete and began pushing. During pushing she developed a fever of 104.1 F with tachycardia as well as maternal tachycardia. Due to close timing of delivery and recent administration of ampicillin for GBS prophylaxis it was felt that additional dosing with the gentamicin would not occur in time to be beneficial to the patient or . She continued with pushing until delivery. On 09/29/2020 she had a normal vaginal delivery of a live female infant at 14:48. Apgars of 6 and 8. Weight of 2850 g (6 pounds 4.5 ounces). Her course was complicated by development of erythema, pain and induration in the lower portion of her pannus. A demarcation line was drawn on the pannus and this was monitored overnight from PPD #1 into the morning of PPD #2. The erythema had receded from the line in the morning of PPD #2. The area was monitored and not felt to have any evidence of cellulitis. She had CBC blood draws done that showed a decrease in her WBC count as well as neutrophil count from the morning of PPD #1 into the morning of PPD #2. Her pain was well controlled and she had minimal lochia. She was ambulating, tolerating a regular diet and voiding normally. She was pumping breastmilk with minimal difficulty. She was afebrile and her hematocrit was 26.6 on PPD #2. She desired to be discharged home on the morning of PPD #2. Her blood type is A+. - Patient Instructions Diet: Regular Diet as Tolerated Activity: Apply Ice, As Tolerated Activity, Other: Nothing in the vagina for 6 weeks Driving: May Drive Today Showering/Bathing: May Shower Notify Provider of: Fever, Increased Pain, Swelling and Redness, Drainage, Nausea and/or Vomiting Other/Special Instructions: Please contact your physician's office if you have heavy vaginal bleeding enough to soak a pad in less than an hour for several hours. Monitor for any signs of an infection in the breasts with severe pain or redness of the breast. - Discharge Plan *PRESCRIPTION DRUG MONITORING PROGRAM REVIEWED*: Not Applicable *COPY OF PRESCRIPTION DRUG MONITORING REPORT IN PATIENT ANTONIA: Not Applicable Prescriptions/Med Rec: FLUoxetine HCl [Fluoxetine HCl] 20 mg PO DAILY #90 tablet Home Medications: Home Meds Vits #93/Iron Fum/FA [ Formula Tablet] 1 tab PO DAILY 03/02/20 [History] Acetaminophen [Tylenol] 650 mg PO Q6H PRN tablet 10/01/20 [Rx] Benzocaine/Menthol [Dermoplast Pain Relief [place]] 1 spray TOP ASDIRECTED PRN canister 10/01/20 [Rx] Docusate Sodium [Colace] 100 mg PO BID PRN cap 10/01/20 [Rx] FLUoxetine HCl [Fluoxetine HCl] 20 mg PO DAILY #90 tablet 10/01/20 [Rx] Ferrous Sulfate 324 mg PO TIDMEALS tab.ec 10/01/20 [Rx] Hydrocortisone Acetate [Anucort-HC] 25 mg RECTAL BID PRN supp 10/01/20 [Rx] Ibuprofen [Motrin] 600 mg PO Q6H PRN tablet 10/01/20 [Rx] witch William [Tucks] 1 pad TOP ASDIRECTED PRN pad 10/01/20 [Rx] Patient Handouts: Group B Streptococcus Infection, [place], Care of a Perineal Tear, Care After Vaginal Delivery Referrals: Oliver Peña MD [Primary Care Provider] - (Follow-up in 2 weeks for routine visit. You may schedule this appointment around the time of infant's discharge.) - Discharge Summary/Plan Comment DC Time >30 min.: No - Patient Data Vitals - Most Recent: Last Vital Signs Temp 36.9 C 10/01/20 02:58 Pulse 83 10/01/20 02:58 Resp 16 10/01/20 03:00 BP 116/64 10/01/20 02:58 Pulse Ox 97 10/01/20 02:58 Weight - Most Recent: 145.603 kg I&O - Last 24 hours: Intake & Output 09/30/20 10/01/20 10/01/20 22:59 06:59 14:59 Intake Total 1600 800 120 Balance 1600 800 120 Lab Results - Last 24 hrs: Laboratory Results - last 24 hr 10/01/20 Range/Units 04:49 WBC 11.82 H (3.98-10.04) K/mm3 RBC 3.32 L (3.98-5.22) M/mm3 Hgb 7.4 L (11.2-15.7) gm/dl Hct 26.6 L (34.1-44.9) % MCV 80.1 (79.4-94.8) fl MCH 22.3 L (25.6-32.2) pg MCHC 27.8 L (32.2-35.5) g/dl RDW Std Deviation 50.0 H (36.4-46.3) fL Plt Count 320 (182-369) K/mm3 MPV 10.1 (9.4-12.3) fl Neut % (Auto) 64.2 (34.0-71.1) % Lymph % (Auto) 23.9 (19.3-51.7) % [place] % (Auto) 7.5 (4.7-12.5) % Eos % (Auto) 3.7 (0.7-5.8) Baso % (Auto) 0.2 (0.1-1.2) % Neut # (Auto) 7.59 H (1.56-6.13) K/mm3 Lymph # (Auto) 2.82 (1.18-3.74) K/mm3 [place] # (Auto) 0.89 H (0.24-0.36) K/mm3 Eos # (Auto) 0.44 H (0.04-0.36) K/mm3 Baso # (Auto) 0.02 (0.01-0.08) K/mm3 Manual Slide Review Abnormal smear Med Orders - Current: Current Medications Acetaminophen (Tylenol) 650 mg PO Q6H PRN PRN Reason: mild pain or fever Last Admin: 09/30/20 19:22 Dose: 650 mg Documented by: Benzocaine/Menthol (Dermoplast Pain Relief [place]) 0 gm TOP ASDIRECTED PRN PRN Reason: Perineal Comfort Measure Docusate Sodium (Colace) 100 mg PO BID PRN PRN Reason: Constipation Last Admin: 10/01/20 08:55 Dose: 100 mg Documented by: Ferrous Sulfate (Ferrous Sulfate) 324 mg PO TIDMEALS WILLIE Last Admin: 10/01/20 08:56 Dose: 324 mg Documented by: Hydrocortisone Acetate (Anucort-Hc) 25 mg RECTAL BID PRN PRN Reason: Hemorrhoid pain Oxytocin/Lactated Ringer's (Pitocin In Lr 10 Units/1,000 Ml) 10 unit in 1,000 mls @ 100 mls/hr IV TITRATE WILLIE; Protocol Ibuprofen (Motrin) 600 mg PO Q6H PRN PRN Reason: Mild pain or fever Last Admin: 10/01/20 08:55 Dose: 600 mg Documented by: Magnesium Hydroxide (Milk Of Magnesia) 30 ml PO BEDTIME PRN PRN Reason: Constipation Prenat Multivit/[place]/Iron/Folic Ac ( Plus Iron) 1 each PO DAILY WILLIE Last Admin: 10/01/20 08:56 Dose: 1 each Documented [facility]: [facility]) 1 pad TOP ASDIRECTED PRN PRN Reason: Perineal Comfort Measure Discontinued Medications Acetaminophen (Tylenol) 650 mg PO Q4H PRN PRN Reason: Pain (Mild 1-3) and fever Bupivacaine HCl (Sensorcaine-Mpf 0.25%) 10 ml .ROUTE .STK-MED ONE Stop: 09/29/20 00:01 Calcium Carbonate/Glycine (Tums) 1,000 mg PO Q2H PRN PRN Reason: Indigestion Ephedrine Sulfate (Ephedrine Sulfate) 5 mg IVPUSH ASDIRECTED PRN PRN Reason: Hypotension Fentanyl (Sublimaze) 100 mcg EPIDUR Q3H PRN PRN Reason: Pain Last Admin: 09/29/20 09:21 Dose: 100 mcg Documented by: Fentanyl/Bupivacaine HCl (Fentanyl/Bupivacaine/Ns 2 Mcg-0.125% 100 Ml) 100 ml EPIDUR ASDIRECTED WILLIE Last Admin: 09/29/20 09:21 Dose: 100 ml Documented by: Ferrous Sulfate (Ferrous Sulfate) 324 mg PO WITHBREAKFAST [facility] Last Admin: 09/30/20 07:58 Dose: Not Given Documented by: Ampicillin Sodium 2 gm/ Sodium (Chloride) 100 mls @ 200 mls/hr IV ONETIME ONE Stop: 09/29/20 08:34 Last Admin: 09/29/20 08:43 Dose: 200 mls/hr Documented by: Ampicillin Sodium 1 gm/ Sodium (Chloride) 100 mls @ 200 mls/hr IV Q4H [facility] Last Admin: 09/29/20 12:15 Dose: 200 mls/hr Documented by: Oxytocin/Lactated Ringer's (Pitocin In Lr 10 Units/1,000 Ml) 10 unit in 1,000 mls @ 500 mls/hr IV .CONTINUOUS WILLIE Last Admin: 09/29/20 15:00 Dose: 500 mls/hr Documented by: Lactated Ringer's (Ringers, Lactated) 1,000 mls @ 100 mls/hr IV ASDIRECTED WILLIE Last Admin: 09/29/20 17:16 Dose: 100 mls/hr Documented by: Lidocaine HCl (Xylocaine 1%) 20 ml INJECT ONETIME ONE Stop: 09/29/20 08:06 Last Admin: 09/29/20 11:16 Dose: Not Given Documented by: Miscellaneous Medication (Phenylephrine 1 Mg/10 Ml-Ns) 0 mg IVPUSH ONETIME ONE Stop: 09/29/20 09:05 Last Admin: 09/29/20 11:16 Dose: Not Given Documented by: Nalbuphine HCl (Nubain) 10 mg IVPUSH Q2H PRN PRN Reason: Pain Last Admin: 09/29/20 08:53 Dose: 10 mg Documented by: Ondansetron HCl (Zofran) 4 mg IVPUSH Q4H PRN PRN Reason: Nausea/Vomiting Ondansetron HCl (Zofran) 4 mg IVPUSH ONETIME PRN PRN Reason: Nausea/Vomiting Sodium Chloride (Saline Flush) 10 ml FLUSH ASDIRECTED PRN PRN Reason: Keep Vein Open
[2020-10-01 10:19] VITALS: BP 134/84; PULSE 92
== END 2020-10-01 12:05 | disposition home or self-care (01) | DRG 560 ==
LOC: JD.OBCHECK 07:59 → JD.OB 08:02 → JD.OBCHECK 08:06 → OBSVTOIN 14:48 → JD.OB 14:49
PROVIDERS: ADMIT Obstetrics & Gynecology; ATTEND Obstetrics & Gynecology
PROC: 10E0XZZ Delivery of Products of Conception, External Approach (ICD-10-PCS; principal; 2020-09-29)
PROC: 3E0R3BZ Introduction of Anesthetic Agent into Spinal Canal, Percutaneous Approach (ICD-10-PCS; 2020-09-29)
PROC: 00HU33Z Insertion of Infusion Device into Spinal Canal, Percutaneous Approach (ICD-10-PCS; 2020-09-29)
DX: O69.81X0 Labor and delivery complicated by cord around neck, without compression, not applicable or unspecified (principal); O99.824 Streptococcus B carrier state complicating childbirth; O70.0 First degree perineal laceration during delivery; Z37.0 Single live birth; Z3A.38 38 weeks gestation of pregnancy; O41.1230 Chorioamnionitis, third trimester, not applicable or unspecified; O99.214 Obesity complicating childbirth; E66.9 Obesity, unspecified; R82.71 Bacteriuria; Z20.822 Contact with and (suspected) exposure to COVID-19; O99.810 Abnormal glucose complicating pregnancy
CPT/HCPCS: 01967; 36415; 51702; 59025; 59409; 82962; 85025; 86592; 86850; 86900; 86901; A9270-GY; J0290; J2300; J2590; J3010; J3490; J7050; J7120; U0002

== ENCOUNTER 2020-11-18 09:04 | Emergency (ER) | payer BC ==
[2020-11-18 09:17] VITALS: BP 129/81; PULSE 64
--- NOTE | 2020-11-18 10:10 | CR ---
Chest: 2 views of the chest were obtained. Comparison: Prior chest x-ray of 11/15/19. Heart size and mediastinum are normal. Lungs are clear with no acute parenchymal change. Bony structures appear within normal limits. Impression: 1. Nothing acute is appreciated on 2 view chest x-ray. Diagnostic code #1
[2020-11-18] MEDS ORDERED: Sodium Chloride 0.9% 10 ML Syringe FLUSH PRN (10:21)
[2020-11-18] MEDS ORDERED: Iopamidol 755 Mg/ML 100 ML Bottle IVPUSH ONE (10:21)
[2020-11-18] MEDS ORDERED: Iopamidol 755 MG/ML 50 ML Bottle IVPUSH ONE (10:23)
[2020-11-18] MEDS ORDERED: Sodium Chloride 0.9% 100 ML IV SCH (10:30)
--- NOTE | 2020-11-18 10:49 | CT ---
CT chest Technique: Multiple axial sections through the chest were obtained. Intravenous contrast was utilized. Study has been performed as a pulmonary angiogram protocol. Findings: There is a very minimal filling defect within a subsegmental branch within the right lower lung. No other findings of pulmonary embolism are seen. Visualized upper abdominal structures show no discrete abnormality. Thoracic aorta shows no aneurysm. Minimal residual thymus is seen. No adenopathy is identified. Lungs are clear with no acute parenchymal change. No pleural effusions are seen. Bone window settings were reviewed which show no acute osseous finding. Impression: 1. Very minimal findings to suggest small pulmonary embolism within a subsegmental branch of the right lower lung. No other findings of pulmonary embolism are seen. 2. Other normal findings as noted above. Diagnostic code #3
--- NOTE | 2020-11-18 11:37 | EDM.PDOC ---
ED HPI GENERAL MEDICAL PROBLEM - General Chief Complaint: Chest Pain Stated Complaint: CHEST PAIN Time Seen by Provider: 11/18/20 09:16 Source of Information: Reports: Patient, RN Notes Reviewed History Limitations: Reports: No Limitations - History of Present Illness INITIAL COMMENTS - FREE TEXT/NARRATIVE: Patient is a 20-year-old female presenting to the emergency department with complaints of chest pain, dizziness, shortness of breath, and pain with deep breathing for the last week with worsening symptoms today. She describes it as a midsternal chest pain. She has taken Tylenol for the pain which she states does help minimally. She is 1 month . Denies any history of blood clots. Denies any pain or swelling in her lower extremities. She denies any chronic medical conditions but states she does have a family history of heart disease. 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 DRILL OPERATOR: 1000mg tylenol 800mg motrin Upper Chest Pain Score (Numeric/FACES): 4 - Related Data Allergies Allergy/AdvReac Type Severity Reaction Status Date / Time codeine Allergy Mild Hives Verified 09/29/20 15:57 Home Meds: Home Meds Vits #93/Iron Fum/FA [ Formula Tablet] 1 tab PO DAILY 03/02/20 [History] Acetaminophen [Tylenol] 650 mg PO Q6H PRN tablet 10/01/20 [Rx] Benzocaine/Menthol [Dermoplast Pain Relief [place]] 1 spray TOP ASDIRECTED PRN canister 10/01/20 [Rx] Docusate Sodium [Colace] 100 mg PO BID PRN cap 10/01/20 [Rx] FLUoxetine HCl [Fluoxetine HCl] 20 mg PO DAILY #90 tablet 10/01/20 [Rx] Ferrous Sulfate 324 mg PO TIDMEALS tab.ec 10/01/20 [Rx] Hydrocortisone Acetate [Anucort-HC] 25 mg RECTAL BID PRN supp 10/01/20 [Rx] Ibuprofen [Motrin] 600 mg PO Q6H PRN tablet 10/01/20 [Rx] witch William [Tucks] 1 pad TOP ASDIRECTED PRN pad 10/01/20 [Rx] Rivaroxaban [Xarelto] 1 each PO ASDIRECTED #1 tab.ds.pk 11/18/20 [Rx] Past Medical History - Past Health History Medical/Surgical History: Denies Medical/Surgical History HEENT History: Reports: Allergic Rhinitis Cardiovascular History: Reports: None Respiratory History: Reports: None Gastrointestinal History: Reports: GERD Other Gastrointestinal History: family history of colon aneurysm. 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 Took Prozac with PPD due to pt starting to have thoughts of suicide/ideation. Pt plans to start Prozac again after this . No feelings or thoughts of suicide at this time. Pt states she is just anxious about labor. Endocrine/Metabolic History: Reports: Obesity/BMI 30+, Other (See Below) Other Endocrine/Metabolic History: Patient states insulin resistance and not DM. Hematologic History: Reports: Anemia Immunologic History: Reports: None Oncologic (Cancer) History: Reports: None Dermatologic History: Reports: Eczema - Infectious Disease History Infectious Disease History: Reports: Chicken Pox, MRSA Other Infectious Disease History: history of MRSA as a child in her elbow. screen and cleared by dr mckinney on 07/24/2019, 07/31/2019, 08/08/2019. Pt had [place] in April of 2020. - Past Surgical History Head Surgeries/Procedures: Reports: None HEENT Surgical History: Reports: Oral Surgery, Tonsillectomy GI Surgical History: Reports: None Female Surgical History: Reports: D&C Endocrine Surgical History: Reports: None Neurological Surgical History: Reports: None Oncologic Surgical History: Reports: None Social & Family History - Family History Family Medical History: No Pertinent Family History Cardiac: Reports: Angina, Hypertension GI: Reports: GERD, Other (See Below) Other GI Family History: abdominal aneurynums OBGYN: Reports: Other (See Below) Endocrine/Metabolic: Reports: Diabetes, type II - Tobacco Use Tobacco Use Status *Q: Never Tobacco User - Caffeine Use Caffeine Use: Reports: Coffee Other Caffeine Use: One cup a day - Recreational Drug Use Recreational Drug Use: No - Living Situation & Occupation Living situation: Reports: Single, with Significant Other (Boyfriend), with Family (Daughter) Occupation: Unemployed ED ROS GENERAL - Review of Systems Review Of Systems: See Below Constitutional: Reports: No Symptoms. Denies: Fever, Chills, Weakness HEENT: Reports: No Symptoms Respiratory: Reports: Shortness of Breath, Pleuritic Chest Pain Cardiovascular: Reports: Chest Pain, Dyspnea on Exertion, Lightheadedness Endocrine: Denies: No Symptoms GI/Abdominal: Reports: No Symptoms : Reports: No Symptoms Musculoskeletal: Reports: No Symptoms Skin: Reports: No Symptoms Neurological: Reports: No Symptoms Psychiatric: Reports: No Symptoms Hematologic/Lymphatic: Reports: No Symptoms Immunologic: Reports: No Symptoms ED EXAM, GENERAL - Physical Exam Exam: See Below General Appearance: Alert, WD/WN, No Apparent Distress Respiratory/Chest: No Respiratory Distress, Lungs Clear, Normal Breath Sounds, No Accessory Muscle Use, Other (Tenderness to palpation to midsternal chest.) Cardiovascular: Normal Peripheral Pulses, Regular Rate, Rhythm, No Edema, No Gallop, No JVD, No Murmur, No Rub Neurological: Alert, Oriented, CN II-XII Intact, Normal Cognition, Normal Gait, Normal Reflexes, No Motor/Sensory Deficits Psychiatric: Normal Affect, Normal Mood Skin Exam: Warm, Dry, Intact, Normal Color, No Rash #1 Interpretation EKG Date: 11/18/20 Time: 09:21 Rhythm: NSR Rate (Beats/Min): 54 Dudley: Normal P-Wave: Present QRS: Normal ST-T: Normal QT: Normal Course - Vital Signs Last Recorded V/S: Last Vital Signs Temp 98.0 F 11/18/20 09:14 Pulse 64 11/18/20 09:14 Resp 12 11/18/20 09:14 BP 129/81 11/18/20 09:14 Pulse Ox 99 11/18/20 09:14 - Orders/Labs/Meds Orders: Active Orders 24 hr Category Date Time Status EKG Documentation Completion [RC] STAT Care 11/18/20 09:17 Active Sodium Chloride 0.9% [Normal Saline] 100 ml Med 11/18/20 10:30 Active IV ASDIRECTED Sodium Chloride 0.9% [Saline Flush] Med 11/18/20 10:21 Active 10 ml FLUSH ONETIME PRN Medication Orders Sodium Chloride (Normal Saline) 100 mls @ 75 mls/hr IV ASDIRECTED WILLIE Last Admin: 11/18/20 10:30 Dose: 75 mls/hr Documented by: BASHIR Sodium Chloride (Saline Flush) 10 ml FLUSH ONETIME PRN PRN Reason: IV FLUSH Last Admin: 11/18/20 10:30 Dose: 10 ml Documented by: BASHIR Labs: Laboratory Tests 11/18/20 11/18/20 11/18/20 Range/Units 09:27 09:27 09:27 WBC 6.87 (3.98-10.04) K/mm3 RBC 4.33 (3.98-5.22) M/mm3 Hgb 9.5 L D (11.2-15.7) gm/dl Hct 32.7 L (34.1-44.9) % MCV 75.5 L (79.4-94.8) fl MCH 21.9 L (25.6-32.2) pg MCHC 29.1 L (32.2-35.5) g/dl RDW Std Deviation 43.4 (36.4-46.3) fL Plt Count 457 H D (182-369) K/mm3 MPV 8.8 L (9.4-12.3) fl Neut % (Auto) 49.8 (34.0-71.1) % Lymph % (Auto) 37.4 (19.3-51.7) % [place] % (Auto) 8.6 (4.7-12.5) % Eos % (Auto) 3.8 (0.7-5.8) Baso % (Auto) 0.3 (0.1-1.2) % Neut # (Auto) 3.42 (1.56-6.13) K/mm3 Lymph # (Auto) 2.57 (1.18-3.74) K/mm3 [place] # (Auto) 0.59 H (0.24-0.36) K/mm3 Eos # (Auto) 0.26 (0.04-0.36) K/mm3 Baso # (Auto) 0.02 (0.01-0.08) K/mm3 Manual Slide Review Abnormal smear D-Dimer, Quantitative 1.87 H (0.19-0.50) mg/L Sodium 140 (136-145) mEq/L Potassium 3.8 (3.5-5.1) mEq/L Chloride 103 (98-107) mEq/L Carbon Dioxide 26 (21-32) mEq/L Anion Gap 14.8 (5-15) BUN 13 (7-18) mg/dL Creatinine 1.1 H (0.55-1.02) mg/dL Est Cr Clr Drug Dosing 84.55 mL/min Estimated GFR (MDRD) > 60 (>60) mL/min BUN/Creatinine Ratio 11.8 L (14-18) Glucose 87 (74-106) mg/dL Calcium 8.6 (8.5-10.1) mg/dL Total Bilirubin 0.4 (0.2-1.0) mg/dL AST 22 (15-37) U/L ALT 38 (14-59) U/L Alkaline Phosphatase 79 (46-116) U/L Troponin I < 0.017 (0.00-0.056) ng/mL C-Reactive Protein 1.3 H* (<1.0) mg/dL Total Protein 6.9 (6.4-8.2) g/dl Albumin 3.1 L (3.4-5.0) g/dl Globulin 3.8 gm/dL Albumin/Globulin Ratio 0.8 L (1-2) Meds: Medications Generic Name Dose Route Start Last Admin Trade Name Frearcelia PRN Reason Stop Dose Admin Sodium Chloride 100 mls @ 75 mls/hr 11/18/20 10:30 11/18/20 10:30 Normal Saline IV 75 mls/hr ASDIRECTED WILLIE Administration Sodium Chloride 10 ml 11/18/20 10:11/18/20 10:30 Saline Flush FLUSH 10 ml ONETIME PRN Administration IV FLUSH Discontinued Medications Generic Name Dose Route Start Last Admin Trade Name Freq PRN Reason Stop Dose Admin Iopamidol 100 ml 11/18/20 10:11/18/20 10:30 [id number] (76%) IVPUSH 11/18/20 10:22 100 ml ONETIME ONE Administration Iopamidol 50 ml 11/18/20 10:23 11/18/20 10:30 Isovue-370 (76%) IVPUSH 11/18/20 10:24 50 ml ONETIME ONE Administration Rivaroxaban 15 mg 11/18/20 12:00 Xarelto PO 11/18/20 12:01 ONETIME ONE - Re-Assessments/Exams Free Text/Narrative Re-Assessment/Exam: Patient is a 20-year-old female presenting to the emergency department with complaints of a 1 week history of chest pain, shortness of breath, and dizziness with worsening of symptoms today. She denies any history of blood clots but is 1 month . Signs in triage were stable. Oxygen 98% on room air. I have ordered CBC, CMP, CRP, troponin, D-dimer, EKG, two-view chest x-ray. 11/18/20 1010 Hematology was significant for hemoglobin low at 9.5, D-dimer 1.87, CRP 1.3. I ordered a CT angiogram of the chest. 11/18/20 11:36 EKG showed no acute abnormalities sinus rhythm at 54. CT scan showed very minimal findings to suggest pulmonary embolism within a subsegmental branch of the right lower lung. No other findings of pulmonary embolism are seen. Patient will be started on Xarelto for the treatment of PE. Recommend follow-up with her primary care provider at the next available visit for ongoing management of Xarelto. Discharge instructions as documented. Departure - Departure Time of Disposition: 12:09 Disposition: Home, Self-Care 01 Condition: Good Clinical Impression: Pulmonary emboli Qualifiers: Pulmonary embolism type: single subsegmental (without acute cor pulmonale) Qualified Code(s): I26.93 - Single subsegmental pulmonary embolism without acute cor pulmonale Prescriptions: Rivaroxaban [Xarelto] 1 each PO ASDIRECTED #1 tab.ds.pk Instructions: Pulmonary Embolism Referrals: Loretta Lovell PA-C [Primary Care Provider] - Forms: ED Department Discharge Additional Instructions: You were seen in the emergency department today for 1 week history of chest pain, shortness of breath, and dizziness. Work-up included blood work, EKG of your heart, and a CT angiogram of your chest. Results of your CT angiogram do show that you have small pulmonary emboli (blood clot) within your right lower lung. You have been started on a blood thinner, Xarelto. Take this medication as prescribed. A prescription for the first month has been sent to [facility]. Recommend calling today to set up an appointment with your primary care provider at her next available visit for ongoing management of your Xarelto. If you should experience any symptoms of worsening chest pain or shortness of breath, please return to the emergency department. Sepsis Event Note (ED) - Evaluation Sepsis Screening Result: No Definite Risk - Focused Exam Vital Signs: Vital Signs Temp Pulse Resp BP Pulse Ox 11/18/20 09:14 98.0 F 64 12 129/81 99 - My Orders Last 24 Hours: My Active Orders 11/18/20 09:17 EKG Documentation Completion [RC] STAT 11/18/20 10:21 Sodium Chloride 0.9% [Saline Flush] 10 ml FLUSH ONETIME PRN 11/18/20 10:30 Sodium Chloride 0.9% [Normal Saline] 100 ml IV ASDIRECTED - Assessment/Plan Last 24 Hours: My Active Orders 11/18/20 09:17 EKG Documentation Completion [RC] STAT 11/18/20 10:21 Sodium Chloride 0.9% [Saline Flush] 10 ml FLUSH ONETIME PRN 11/18/20 10:30 Sodium Chloride 0.9% [Normal Saline] 100 ml IV ASDIRECTED
[2020-11-18] MEDS ORDERED: Rivaroxaban 15 MG Tab PO ONE (12:00)
== END 2020-11-18 12:22 | disposition home or self-care (01) ==
LOC: JD.ED 09:04
DX: I26.93 Single subsegmental thrombotic pulmonary embolism without acute cor pulmonale (principal); Z88.5 Allergy status to narcotic agent; E66.9 Obesity, unspecified; Z68.41 Body mass index [BMI] 40.0-44.9, adult; Z79.899 Other long term (current) drug therapy
CPT/HCPCS: 36415; 71046; 71275; 80053; 84484; 85025; 85379; 86140; 93005; 99285; A9270; Q9967; 93010; 99284

== ENCOUNTER 2020-11-20 17:52 | Emergency (ER) | payer BC ==
[2020-11-20 18:05] VITALS: BP 123/76; PULSE 71
--- NOTE | 2020-11-20 19:23 | EDM.PDOC ---
ED HPI GENERAL MEDICAL PROBLEM - General Chief Complaint: Chest Pain Stated Complaint: CHEST PAON AND HARD TO BREATH Time Seen by Provider: 11/20/20 19:00 Source of Information: Reports: Patient History Limitations: Reports: No Limitations - History of Present Illness INITIAL COMMENTS - FREE TEXT/NARRATIVE: This is a 20-year-old female. 2 days ago she was seen in the ER with right- sided chest pain in the upper chest area. She had a CT angio that showed a very minimal suggestion of a small pulmonary emboli within the subsegmental branch of the right lower lobe. There were no other acute findings. She was placed on Xarelto 15 mg twice a day. She was doing fairly well yesterday and then today she started having chest pain in the right upper chest again she got rather anxious about this which made her more short of breath and she comes to the ER for reevaluation. She says if she takes very shallow breaths she does not have much pain but when she breathes deep she has sharp pain like pleuritic type pain. She is 1 month . She denies any fever or chills was been no nausea or vomiting. With the chest pain comes the shortness of breath and the anxiety. chest Pain Score (Numeric/FACES): 6 - Related Data Allergies Allergy/AdvReac Type Severity Reaction Status Date / Time codeine Allergy Mild Hives Verified 11/20/20 18:06 Home Meds: Home Meds Vits #93/Iron Fum/FA [ Formula Tablet] 1 tab PO DAILY 03/02/20 [History] Acetaminophen [Tylenol] 650 mg PO Q6H PRN tablet 10/01/20 [Rx] FLUoxetine HCl [Fluoxetine HCl] 20 mg PO DAILY #90 tablet 10/01/20 [Rx] Ferrous Sulfate 324 mg PO TIDMEALS tab.ec 10/01/20 [Rx] Rivaroxaban [Xarelto] 1 each PO ASDIRECTED #1 tab.ds.pk 11/18/20 [Rx] Hydrocodone/Acetaminophen [Hydrocodone-Acetamin 5-325 mg] 1 each PO Q6H PRN #12 tablet 11/20/20 [Rx] LORazepam [Ativan] 0.5 mg PO Q6H PRN #12 tablet 11/20/20 [Rx] Past Medical History - Past Health History Medical/Surgical History: Denies Medical/Surgical History HEENT History: Reports: Allergic Rhinitis Cardiovascular History: Reports: None Respiratory History: Reports: None Gastrointestinal History: Reports: GERD Other Gastrointestinal History: family history of colon aneurysm. 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 Took Prozac with PPD due to pt starting to have thoughts of suicide/ideation. Pt plans to start Prozac again after this . No feelings or thoughts of suicide at this time. Pt states she is just anxious about labor. Endocrine/Metabolic History: Reports: Obesity/BMI 30+, Other (See Below) Other Endocrine/Metabolic History: Patient states insulin resistance and not DM. Hematologic History: Reports: Anemia Immunologic History: Reports: None Oncologic (Cancer) History: Reports: None Dermatologic History: Reports: Eczema - Infectious Disease History Infectious Disease History: Reports: Chicken Pox, MRSA Other Infectious Disease History: history of MRSA as a child in her elbow. screen and cleared by dr mckinney on 07/24/2019, 07/31/2019, 08/08/2019. Pt had [place] in April of 2020. - Past Surgical History Head Surgeries/Procedures: Reports: None HEENT Surgical History: Reports: Oral Surgery, Tonsillectomy GI Surgical History: Reports: None Female Surgical History: Reports: D&C Endocrine Surgical History: Reports: None Neurological Surgical History: Reports: None Oncologic Surgical History: Reports: None Social & Family History - Family History Family Medical History: No Pertinent Family History Cardiac: Reports: Angina, Hypertension GI: Reports: GERD, Other (See Below) Other GI Family History: abdominal aneurynums OBGYN: Reports: Other (See Below) Endocrine/Metabolic: Reports: Diabetes, type II - Tobacco Use Tobacco Use Status *Q: Never Tobacco User - Caffeine Use Caffeine Use: Reports: Coffee Other Caffeine Use: One cup a day - Recreational Drug Use Recreational Drug Use: No - Living Situation & Occupation Living situation: Reports: Single, with Significant Other (Boyfriend), with Family (Daughter) Occupation: Unemployed ED ROS GENERAL - Review of Systems Review Of Systems: See Below Constitutional: Denies: Fever, Chills HEENT: Reports: No Symptoms Respiratory: Reports: Shortness of Breath, Pleuritic Chest Pain. Denies: Cough Cardiovascular: Reports: Chest Pain GI/Abdominal: Reports: No Symptoms. Denies: Nausea, Vomiting : Reports: No Symptoms Musculoskeletal: Reports: No Symptoms Skin: Reports: No Symptoms Neurological: Reports: No Symptoms Psychiatric: Reports: Anxiety Hematologic/Lymphatic: Reports: No Symptoms ED EXAM, GENERAL - Physical Exam Exam: See Below Exam Limited By: No Limitations General Appearance: Alert, WD/WN, No Apparent Distress Eye Exam: Bilateral Eye: Normal Inspection Ears: Normal External Exam Throat/Mouth: Normal Voice, No Airway Compromise Head: Normocephalic Neck: Supple Respiratory/Chest: No Respiratory Distress, Lungs Clear, Normal Breath Sounds, Other (Planes of upper anterior chest sharp pain with breathing deeply. If she breathes shallowly she does not really have much pain. Does appear comfortable when I go into the room and her pulse ox is 97-98% on room air.) Cardiovascular: Regular Rate, Rhythm, No Murmur GI/Abdominal: Soft, Non-Tender, Other (No upper abdominal tenderness on palpation.) Back Exam: Normal Inspection, Full Range of Motion Extremities: Normal Inspection, Normal Range of Motion Neurological: Alert, Oriented Psychiatric: Normal Affect, Normal Mood Skin Exam: Warm, Dry Course - Vital Signs Last Recorded V/S: Last Vital Signs Temp 97.8 F 11/20/20 18:02 Pulse 71 11/20/20 18:02 Resp 20 11/20/20 18:02 BP 123/76 11/20/20 18:02 Pulse Ox 96 11/20/20 18:02 - Orders/Labs/Meds Orders: Active Orders 24 hr Category Date Time Status Chest 2V [CR] Stat Exams 11/20/20 19:18 Ordered Labs: Laboratory Tests 11/20/20 11/20/20 11/20/20 Range/Units 18:14 18:14 19:25 WBC 8.29 (3.98-10.04) K/mm3 RBC 4.81 (3.98-5.22) M/mm3 Hgb 10.4 L (11.2-15.7) gm/dl Hct 36.1 (34.1-44.9) % MCV 75.1 L (79.4-94.8) fl MCH 21.6 L (25.6-32.2) pg MCHC 28.8 L (32.2-35.5) g/dl RDW Std Deviation 43.3 (36.4-46.3) fL Plt Count 493 H (182-369) K/mm3 MPV 9.4 (9.4-12.3) fl Neut % (Auto) 62.7 (34.0-71.1) % Lymph % (Auto) 28.7 (19.3-51.7) % [place] % (Auto) 6.3 (4.7-12.5) % Eos % (Auto) 1.8 (0.7-5.8) Baso % (Auto) 0.4 (0.1-1.2) % Neut # (Auto) 5.20 (1.56-6.13) K/mm3 Lymph # (Auto) 2.38 (1.18-3.74) K/mm3 [place] # (Auto) 0.52 H (0.24-0.36) K/mm3 Eos # (Auto) 0.15 (0.04-0.36) K/mm3 Baso # (Auto) 0.03 (0.01-0.08) K/mm3 Manual Slide Review Abnormal smear Puncture Site Rt radial ABG pH 7.39 (7.35-7.45) ABG pCO2 38.5 (35.0-45.0) mmHg ABG pO2 85.0 (80.0-100.0) mmHg ABG HCO3 22.8 (22.0-26.0) meq/L ABG O2 Saturation 96.7 (96.0-97.0) % ABG Base Excess -1.4 (-2-2.0) Zachary Test Positive A-a Gradient 17 mmHg O2 Delivery Device Room air FiO2 21.00 (21.00-100.00) % C-Reactive Protein 0.9 (<1.0) mg/dL - Radiology Interpretation Free Text/Narrative:: Chest x-ray does not show any acute changes or any smudging in the right lower lobe. - Re-Assessments/Exams Free Text/Narrative Re-Assessment/Exam: 11/20/20 20:28 I spoke to the patient regarding her blood work her C-reactive protein is normal. She is slightly anemic with a hemoglobin of 10.4 but this is not unusual for her and being . Continue with the Xarelto as prescribed. I will put her on some hydrocodone for pain as well as some Ativan to help with her anxiety. She will follow-up with her PCP on Monday as scheduled. 11/20/20 20:31 Departure - Departure Time of Disposition: : Disposition: Home, Self-Care 01 Condition: Good Clinical Impression: Pleuritic chest pain, Shortness of breath, Anxiety Pulmonary embolism Qualifiers: Pulmonary embolism type: single subsegmental (without acute cor pulmonale) Qualified Code(s): I26.93 - Single subsegmental pulmonary embolism without acute cor pulmonale - Discharge Information *PRESCRIPTION DRUG MONITORING PROGRAM REVIEWED*: No *COPY OF PRESCRIPTION DRUG MONITORING REPORT IN PATIENT ANTONIA: No Prescriptions: LORazepam [Ativan] 0.5 mg PO Q6H PRN #12 tablet PRN Reason: Anxiety Hydrocodone/Acetaminophen [Hydrocodone-Acetamin 5-325 mg] 1 each PO Q6H PRN #12 tablet PRN Reason: Pain Referrals: Loretta Lovell PA-C [Primary Care Provider] - Forms: ED Department Discharge Additional Instructions: You were seen in the ER for chest pain related to your small pulmonary emboli in the right lower lobe of your lung. It does appear to be stable and you have good oxygen levels. I believe that the Xarelto is working. I am going to put you on something for pain and also something for anxiety to help you through the spells where you get very anxious and deep breathing makes her chest hurt. Follow-up with your primary care provider on Monday that you have scheduled. Obviously if there is worsening of your symptoms return to the ER for reevaluation. Sepsis Event Note (ED) - Evaluation Sepsis Screening Result: No Definite Risk - Focused Exam Vital Signs: Vital Signs Temp Pulse Resp BP Pulse Ox 11/20/20 18:02 97.8 F 71 20 123/76 96 - My Orders Last 24 Hours: My Active Orders 11/20/20 19:18 Chest 2V [CR] Stat - Assessment/Plan Last 24 Hours: My Active Orders 02/26/21 19:18 Chest 2V [CR] Stat
--- NOTE | 2020-11-22 11:34 | CR ---
Chest: Frontal and lateral views of the chest were obtained. Comparison: Prior chest x-ray of 11/18/20. Heart size and mediastinum are normal. Lungs are clear with no acute parenchymal change. Bony structures appear within normal limits for the patient's age. Impression: 1. Nothing acute is seen on 2 view chest x-ray. Diagnostic code #1
== END 2020-11-20 20:45 | disposition home or self-care (01) ==
LOC: JD.ED 17:52
DX: I26.93 Single subsegmental thrombotic pulmonary embolism without acute cor pulmonale (principal); R07.81 Pleurodynia; F41.9 Anxiety disorder, unspecified; E66.9 Obesity, unspecified; Z68.41 Body mass index [BMI] 40.0-44.9, adult; Z88.5 Allergy status to narcotic agent; Z79.899 Other long term (current) drug therapy; Z79.01 Long term (current) use of anticoagulants
CPT/HCPCS: 36415; 36600; 71046; 71046-26; 82803; 85025; 86140; 99284; 99285-25

== ENCOUNTER 2021-01-11 19:45 | Emergency (ER) | payer BC ==
[2021-01-11 20:19] VITALS: BP 128/77; PULSE 84
--- NOTE | 2021-01-11 20:52 | EDM.PDOC ---
ED HPI GENERAL MEDICAL PROBLEM - General Chief Complaint: Chest Pain Stated Complaint: chest pain Time Seen by Provider: 01/11/21 20:08 Source of Information: Reports: Patient, RN Notes Reviewed History Limitations: Reports: No Limitations - History of Present Illness INITIAL COMMENTS - FREE TEXT/NARRATIVE: Patient is a 20-year-old female who presents to the ER for her right upper chest pain. Patient was diagnosed with a pulmonary embolus, in October, and was started on Xarelto. Patient notes she has been current on her Xarelto ahead and has not missed a dose. Patient notes that she was told by her primary care provider, Loretta Lovell that if her pain worsened at all, she was to come to the ER for immediate evaluation. Patient states that today her right upper [address] pain seem to have worsened, and she did appreciate some shortness of breath that has worsened. She did not take any sort of Tylenol or ibuprofen prior to coming to the ER for this. Patient notes that she is not had any trauma to the area. She does have multiple small children at home, so she is lifting them up from time to time. Patient notes also has a history of anxiety, and was not sure if that could be part of the issue as well. She has had no fevers or chills, cough or shortness of breath, nausea/vomiting/diarrhea. She is also complaining of a headache, and around her temples, but states that she commonly gets these when she does not have enough caffeine, and she believes this to be the case today. She is having no blurred vision or double vision. She does also complain that her last menstrual period is 2 days late, and she is usually fairly regular, she had a child in September, and has been having unprotected sex with her since then. She was going to talk with her provider, sometime next week regarding control methods. Right Chest Pain Score (Numeric/FACES): 7 - Related Data Allergies Allergy/AdvReac Type Severity Reaction Status Date / Time codeine Allergy Mild Hives Verified 01/11/21 20:19 Home Meds: Home Meds Vits #93/Iron Fum/FA [ Formula Tablet] 1 tab PO DAILY 03/02/20 [History] Acetaminophen [Tylenol] 650 mg PO Q6H PRN tablet 10/01/20 [Rx] FLUoxetine HCl [Fluoxetine HCl] 20 mg PO DAILY #90 tablet 10/01/20 [Rx] Ferrous Sulfate 324 mg PO TIDMEALS tab.ec 10/01/20 [Rx] Rivaroxaban [Xarelto] 1 each PO ASDIRECTED #1 tab.ds.pk 11/18/20 [Rx] Hydrocodone/Acetaminophen [Hydrocodone-Acetamin 5-325 mg] 1 each PO Q6H PRN #12 tablet 11/20/20 [Rx] LORazepam [Ativan] 0.5 mg PO Q6H PRN #12 tablet 11/20/20 [Rx] Past Medical History - Past Health History Medical/Surgical History: Denies Medical/Surgical History HEENT History: Reports: Allergic Rhinitis Cardiovascular History: Reports: None Respiratory History: Reports: PE Gastrointestinal History: Reports: GERD Other Gastrointestinal History: family history of colon aneurysm. Genitourinary History: Reports: Renal Calculus, Other (See Below) Other Genitourinary History: Right kidney stone during preg CONTROL ANALYST History: Reports: , Spontaneous Other CONTROL ANALYST History: patiet is Musculoskeletal History: Reports: None Neurological History: Reports: Migraines Other Neuro History: patient states induced headaches but no issues prior to Psychiatric History: Reports: Anxiety, Bipolar, Depression, Other (See Below) Other Psychiatric History: Has not been on meds for bipolar in a long time. Took Prozac with PPD due to pt starting to have thoughts of suicide/ideation. Pt plans to start Prozac again after this . No feelings or thoughts of suicide at this time. Pt states she is just anxious about labor. Endocrine/Metabolic History: Reports: Obesity/BMI 30+, Other (See Below) Other Endocrine/Metabolic History: Patient states insulin resistance and not DM. Hematologic History: Reports: Anemia Immunologic History: Reports: None Oncologic (Cancer) History: Reports: None Dermatologic History: Reports: Eczema - Infectious Disease History Infectious Disease History: Reports: Chicken Pox, MRSA Other Infectious Disease History: history of MRSA as a child in her elbow. screen and cleared by dr mckinney on 07/24/2019, 07/31/2019, 08/08/2019. Pt had [place] in April of 2020. - Past Surgical History Head Surgeries/Procedures: Reports: None HEENT Surgical History: Reports: Oral Surgery, Tonsillectomy Female Surgical History: Reports: D&C Oncologic Surgical History: Reports: None Social & Family History - Family History Family Medical History: No Pertinent Family History Cardiac: Reports: Angina, Hypertension GI: Reports: GERD, Other (See Below) Other GI Family History: abdominal aneurynums OBGYN: Reports: Other (See Below) Endocrine/Metabolic: Reports: Diabetes, type II - Tobacco Use Tobacco Use Status *Q: Never Tobacco User Second Hand Smoke Exposure: No - Caffeine Use Caffeine Use: Reports: Coffee Other Caffeine Use: One cup a day - Recreational Drug Use Recreational Drug Use: No - Living Situation & Occupation Living situation: Reports: Single, with Significant Other (Boyfriend), with Family (Daughter) Occupation: Unemployed ED ROS GENERAL - Review of Systems Review Of Systems: Comprehensive ROS is negative, except as noted in HPI. ED EXAM, GENERAL - Physical Exam Exam: See Below Exam Limited By: No Limitations General Appearance: Alert, WD/WN, No Apparent Distress Eye Exam: Bilateral Eye: EOMI, Normal Inspection, PERRL Throat/Mouth: Normal Inspection, Normal Lips, Normal Teeth, Normal Gums, Normal Oropharynx, Normal Voice, No Airway Compromise Head: Atraumatic, Normocephalic Neck: Normal Inspection Respiratory/Chest: No Respiratory Distress, Lungs Clear, Normal Breath Sounds, No Accessory Muscle Use, Other (Right chest tender on palpation to R upper chest. She states that this does reproduce the pain she felt) Cardiovascular: Normal Peripheral Pulses, Regular Rate, Rhythm, No Edema Peripheral Pulses: 2+: Radial (L), Radial (R) Extremities: Normal Inspection, Normal Capillary Refill Neurological: Alert, Oriented, Normal Cognition, No Motor/Sensory Deficits Psychiatric: Normal Affect, Normal Mood, Anxious (slightly, she states that she did take a dose of Ativan for her anxiety prior to coming to the ED.) Skin Exam: Warm, Dry, Intact, Normal Color, No Rash #1 Interpretation EKG Date: 01/11/21 Time: 20:11 Rhythm: NSR Rate (Beats/Min): 71 [place]: Normal P-Wave: Present QRS: Normal ST-T: Normal QT: Normal EKG Interpretation Comments: No obvious ischemia or acute ST changes noted, reviewed by myself and Dr. Fitch. Course - Vital Signs Last Recorded V/S: Last Vital Signs Temp 97.5 F 01/11/21 20:16 Pulse 84 01/11/21 20:16 Resp 18 04/19/21 20:16 BP 128/77 01/11/21 20:16 Pulse Ox 100 01/11/21 20:16 - Orders/Labs/Meds Orders: Active Orders 24 hr Category Date Time Status EKG 12 Lead [EKG Documentation Completion] [RC] STAT Care 01/11/21 21:08 Active Labs: Laboratory Tests 01/11/21 01/11/21 01/11/21 Range/Units 20:40 20:59 20:59 WBC 9.04 (3.98-10.04) K/mm3 RBC 4.83 (3.98-5.22) M/mm3 Hgb 10.4 L (11.2-15.7) gm/dl Hct 35.5 (34.1-44.9) % MCV 73.5 L (79.4-94.8) fl MCH 21.5 L (25.6-32.2) pg MCHC 29.3 L (32.2-35.5) g/dl RDW Std Deviation 41.7 (36.4-46.3) fL Plt Count 465 H (182-369) K/mm3 MPV 9.7 (9.4-12.3) fl Neut % (Auto) 58.7 (34.0-71.1) % Lymph % (Auto) 32.5 (19.3-51.7) % Miner % (Auto) 6.4 (4.7-12.5) % Eos % (Auto) 2.0 (0.7-5.8) Baso % (Auto) 0.3 (0.1-1.2) % Neut # (Auto) 5.30 (1.56-6.13) K/mm3 Lymph # (Auto) 2.94 (1.18-3.74) K/mm3 Miner # (Auto) 0.58 H (0.24-0.36) K/mm3 Eos # (Auto) 0.18 (0.04-0.36) K/mm3 Baso # (Auto) 0.03 (0.01-0.08) K/mm3 Manual Slide Review Abnormal smear Sodium (136-145) mEq/L Potassium (3.5-5.1) mEq/L Chloride (98-107) mEq/L Carbon Dioxide (21-32) mEq/L Anion Gap (5-15) BUN (7-18) mg/dL Creatinine (0.55-1.02) mg/dL Est Cr Clr Drug Dosing mL/min Estimated GFR (MDRD) (>60) mL/min BUN/Creatinine Ratio (14-18) Glucose (74-106) mg/dL Calcium (8.5-10.1) mg/dL Total Bilirubin (0.2-1.0) mg/dL AST (15-37) U/L ALT (14-59) U/L Alkaline Phosphatase (46-116) U/L C-Reactive Protein (<1.0) mg/dL Total Protein (6.4-8.2) g/dl Albumin (3.4-5.0) g/dl Globulin gm/dL Albumin/Globulin Ratio (1-2) HCG, Quant 1.0 mIU/mL Urine Color Yellow (Yellow) Urine Appearance Clear (Clear) Urine pH 7.0 (5.0-8.0) Ur Specific [place] 1.015 (1.005-1.030) Urine Protein Negative (Negative) Urine Glucose (UA) Negative (Negative) Urine Ketones Negative (Negative) Urine Occult Blood Negative (Negative) Urine Nitrite Negative (Negative) Urine Bilirubin Negative (Negative) Urine Urobilinogen 0.2 (0.2-1.0) Ur Leukocyte Esterase Negative (Negative) Urine RBC Not seen (0-5) /hpf Urine WBC 0-5 (0-5) /hpf Ur Epithelial Cells 0-5 (0-5) /hpf Urine Bacteria Not seen (FEW) /hpf Urine Mucus Not seen (FEW) /hpf 01/11/21 Range/Units 20:59 WBC (3.98-10.04) K/mm3 RBC (3.98-5.22) M/mm3 Hgb (11.2-15.7) gm/dl Hct (34.1-44.9) % MCV (79.4-94.8) fl MCH (25.6-32.2) pg MCHC (32.2-35.5) g/dl RDW Std Deviation (36.4-46.3) fL Plt Count (182-369) K/mm3 MPV (9.4-12.3) fl Neut % (Auto) (34.0-71.1) % Lymph % (Auto) (19.3-51.7) % Miner % (Auto) (4.7-12.5) % Eos % (Auto) (0.7-5.8) Baso % (Auto) (0.1-1.2) % Neut # (Auto) (1.56-6.13) K/mm3 Lymph # (Auto) (1.18-3.74) K/mm3 Miner # (Auto) (0.24-0.36) K/mm3 Eos # (Auto) (0.04-0.36) K/mm3 Baso # (Auto) (0.01-0.08) K/mm3 Manual Slide Review Sodium 141 (136-145) mEq/L Potassium 4.1 (3.5-5.1) mEq/L Chloride 104 (98-107) mEq/L Carbon Dioxide 25 (21-32) mEq/L Anion Gap 16.1 H (5-15) BUN 10 (7-18) mg/dL Creatinine 1.1 H (0.55-1.02) mg/dL Est Cr Clr Drug Dosing 84.55 mL/min Estimated GFR (MDRD) > 60 (>60) mL/min BUN/Creatinine Ratio 9.1 L (14-18) Glucose 92 (74-106) mg/dL Calcium 8.9 (8.5-10.1) mg/dL Total Bilirubin 0.2 (0.2-1.0) mg/dL AST 21 (15-37) U/L ALT 44 (14-59) U/L Alkaline Phosphatase 66 (46-116) U/L C-Reactive Protein 1.6 H* (<1.0) mg/dL Total Protein 7.5 (6.4-8.2) g/dl Albumin 3.4 (3.4-5.0) g/dl Globulin 4.1 gm/dL Albumin/Globulin Ratio 0.8 L (1-2) HCG, Quant mIU/mL Urine Color (Yellow) Urine Appearance (Clear) Urine pH (5.0-8.0) Ur Specific [place] (1.005-1.030) Urine Protein (Negative) Urine Glucose (UA) (Negative) Urine Ketones (Negative) Urine Occult Blood (Negative) Urine Nitrite (Negative) Urine Bilirubin (Negative) Urine Urobilinogen (0.2-1.0) Ur Leukocyte Esterase (Negative) Urine RBC (0-5) /hpf Urine WBC (0-5) /hpf Ur Epithelial Cells (0-5) /hpf Urine Bacteria (FEW) /hpf Urine Mucus (FEW) /hpf - Re-Assessments/Exams Free Text/Narrative Re-Assessment/Exam: 01/11/21 21:39 Patient presents to the ER for her right upper chest pain. Have ordered basic labs, EKG was done at time of triage and demonstrates no acute abnormalities. Patient CBC, CMP are essentially unremarkable. The patient CRP mildly elevated. Again the patient's pain was reproducible on exam, so it is likely that this is more musculoskeletal in nature. The patient's hCG quantitative level, is 1.0, this is the lowest detectable unit as reportable by lab, safe to assume at this point the patient is not . We will go ahead and discharge her home with general recommendations. Departure - Departure Time of Disposition: 21:40 Disposition: Home, Self-Care 01 Condition: Good Clinical Impression: Musculoskeletal chest pain Instructions: Chest Wall Pain, [id number] Referrals: Loretta Lovell PA-C [Primary Care Provider] - Forms: ED Department Discharge Additional Instructions: You were evaluated in the ER today for your upper chest pain. EKG, and labs taken at today's visit demonstrate no acute focal abnormalities. You are not suffering from a heart attack at today's visit. Your pain was reproducible on exam, which suggest that this has a more musculoskeletal etiology, highly recommend you take 500 mg Tylenol or 600 mg ibuprofen every 6 hours as needed for further pain or discomfort. Do not exceed 4000 mg Tylenol or 3200 mg of ibuprofen in a 24-hour time span. Please continue to take all other medications as previously prescribed. You may use heat/ice packs to the area to help try to alleviate some of the pain as well. Please return to the ER at any time if symptoms change or worsen. Sepsis Event Note (ED) - Evaluation Sepsis Screening Result: No Definite Risk - Focused Exam Vital Signs: Vital Signs Temp Pulse Resp BP Pulse Ox 01/11/21 20:16 97.5 F 84 18 128/77 100 - My Orders Last 24 Hours: My Active Orders 01/11/21 21:08 EKG 12 Lead [EKG Documentation Completion] [RC] STAT - Assessment/Plan Last 24 Hours: My Active Orders 01/11/21 21:08 EKG 12 Lead [EKG Documentation Completion] [RC] STAT
[2021-01-11] MEDS ORDERED: Ketorolac 60 MG/2 ML SDV IM ONE (21:40)
== END 2021-01-11 22:33 | disposition home or self-care (01) ==
LOC: JD.ED 19:45
DX: R07.89 Other chest pain (principal); E66.9 Obesity, unspecified; Z68.42 Body mass index [BMI] 45.0-49.9, adult; Z79.01 Long term (current) use of anticoagulants; Z79.899 Other long term (current) drug therapy; Z86.711 Personal history of pulmonary embolism
CPT/HCPCS: 36415; 80053; 81001; 84702; 85025; 86140; 93005; 96372; 99285; J1885; 93010; 99283

== ENCOUNTER 2021-05-03 18:28 | Emergency (ER) | payer BC ==
[2021-05-03 18:45] VITALS: BP 130/82; PULSE 104
--- NOTE | 2021-05-03 20:52 | EDM.PDOC ---
ED HPI GENERAL MEDICAL PROBLEM - General Chief Complaint: Respiratory Problem Stated Complaint: COVID SX/SOB/HEADACHE/COUGH Time Seen by Provider: 05/03/21 18:58 Source of Information: Reports: Patient, RN Notes Reviewed - History of Present Illness INITIAL COMMENTS - FREE TEXT/NARRATIVE: 21 yr old female with cough, felipe., fatitue for the past 2 to 3 days. Has had Jones and myalgias, chills, no definite fever. - Related Data Allergies Allergy/AdvReac Type Severity Reaction Status Date / Time codeine Allergy Mild Hives Verified 05/03/21 18:45 Home Meds: Home Meds Vits #93/Iron Fum/FA [ Formula Tablet] 1 tab PO DAILY 03/02/20 [History] Ferrous Sulfate 324 mg PO TIDMEALS tab.ec 10/01/20 [Rx] LORazepam [Ativan] 0.5 mg PO Q6H PRN #12 tablet 11/20/20 [Rx] atoMOXetine HCl [Strattera] 60 mg PO DAILY 05/03/21 [History] Past Medical History - Past Health History Medical/Surgical History: Denies Medical/Surgical History HEENT History: Reports: Allergic Rhinitis Cardiovascular History: Reports: None Respiratory History: Reports: PE Gastrointestinal History: Reports: GERD Other Gastrointestinal History: family history of colon aneurysm. Genitourinary History: Reports: Renal Calculus, Other (See Below) Other Genitourinary History: Right kidney stone during preg MEDICAL RECORD TECHNICIAN History: Reports: , Spontaneous Other MEDICAL RECORD TECHNICIAN History: patiet is Musculoskeletal History: Reports: None Neurological History: Reports: Migraines Other Neuro History: patient states induced headaches but no issues prior to Psychiatric History: Reports: Anxiety, Bipolar, Depression, Suicidal Ideation, Other (See Below) Other Psychiatric History: Has not been on meds for bipolar in a long time. Took Prozac with PPD due to pt starting to have thoughts of suicide/ideation. Pt plans to start Prozac again after this . No feelings or thoughts of suicide at this time. Endocrine/Metabolic History: Reports: Obesity/BMI 30+, Other (See Below) Other Endocrine/Metabolic History: Patient states insulin resistance and not DM. Hematologic History: Reports: Anemia Immunologic History: Reports: None Oncologic (Cancer) History: Reports: None Dermatologic History: Reports: Eczema - Infectious Disease History Infectious Disease History: Reports: Chicken Pox, MRSA Other Infectious Disease History: history of MRSA as a child in her elbow. screen and cleared by dr mckinney on 07/24/2019, 07/31/2019, 08/08/2019. Pt had [place] in April of 2020. - Past Surgical History HEENT Surgical History: Reports: Oral Surgery, Tonsillectomy Female Surgical History: Reports: D&C Social & Family History - Family History Family Medical History: No Pertinent Family History Cardiac: Reports: Angina, Hypertension GI: Reports: GERD, Other (See Below) Other GI Family History: abdominal aneurynums OBGYN: Reports: Other (See Below) Endocrine/Metabolic: Reports: Diabetes, type II - Tobacco Use Tobacco Use Status *Q: Never Tobacco User Second Hand Smoke Exposure: No - Caffeine Use Caffeine Use: Reports: Coffee Other Caffeine Use: One cup a day - Recreational Drug Use Recreational Drug Use: No - Living Situation & Occupation Living situation: Reports: Single, with Significant Other (Boyfriend), with Family (Daughter) Occupation: Unemployed ED ROS GENERAL - Review of Systems Review Of Systems: See Below Constitutional: Reports: Chills. Denies: Fever HEENT: Reports: Rhinitis, Throat Pain Respiratory: Reports: Cough GI/Abdominal: Denies: Abdominal Pain, Diarrhea, Nausea, Vomiting Musculoskeletal: Reports: Other (myaligias) Skin: Denies: Rash Neurological: Reports: Dizziness, Headache ED EXAM, GENERAL - Physical Exam Exam: See Below General Appearance: Alert, No Apparent Distress Head: Atraumatic Neck: Supple Respiratory/Chest: No Respiratory Distress, Lungs Clear, Normal Breath Sounds. No: Rhonchi, Wheezing Cardiovascular: Tachycardia GI/Abdominal: Non-Tender Neurological: Alert, Oriented, No Motor/Sensory Deficits Skin Exam: Warm, Dry, Normal Color, No Rash Course - Vital Signs Last Recorded V/S: Last Vital Signs Temp 99.6 F 05/03/21 18:37 Pulse 104 H 05/03/21 18:37 Resp 18 05/03/21 18:37 BP 130/82 05/03/21 18:37 Pulse Ox 100 05/03/21 18:37 - Orders/Labs/Meds Orders: Active Orders 24 hr Category Date Time Status Chest 1V Frontal [CR] Stat Exams 05/03/21 19:41 Taken Labs: Laboratory Tests 05/03/21 Range/Units 18:43 SARS-CoV-2 RNA (LES) Negative (NEGATIVE) - Re-Assessments/Exams Free Text/Narrative Re-Assessment/Exam: 05/03/21 23:32 CXR nl, covid neg Departure - Departure Time of Disposition: 20:50 Disposition: Home, Self-Care 01 Condition: Fair Clinical Impression: Viral syndrome - Discharge Information Instructions: Viral Illness, Adult Referrals: Loretta Lovell PA-C [Primary Care Provider] - Forms: ED Department Discharge Additional Instructions: Rest, consider retesting in 2 to 3 days if symptoms not improving as expected. Return to ED as needed. Sepsis Event Note (ED) - Evaluation Sepsis Screening Result: No Definite Risk - Focused Exam Vital Signs: Vital Signs Temp Pulse Resp BP Pulse Ox 05/03/21 18:37 99.6 F 104 H 18 130/82 100 - My Orders Last 24 Hours: My Active Orders 05/03/21 19:41 Chest 1V Frontal [CR] Stat - Assessment/Plan Last 24 Hours: My Active Orders 05/03/21 19:41 Chest 1V Frontal [CR] Stat
--- NOTE | 2021-05-04 07:24 | CR ---
Chest: Portable view of the chest was obtained. Comparison: Prior chest x-ray of 11/20/20. Heart size and mediastinum are normal. Lungs are clear with no acute parenchymal change. No acute osseous abnormality is appreciated. Impression: 1. Nothing acute is seen on portable chest x-ray. 2. No change from previous study is seen. Diagnostic code #1
== END 2021-05-03 21:00 | disposition home or self-care (01) ==
LOC: JD.ED 18:28
DX: B34.9 Viral infection, unspecified (principal); E66.9 Obesity, unspecified; Z20.822 Contact with and (suspected) exposure to COVID-19; Z88.5 Allergy status to narcotic agent; Z68.42 Body mass index [BMI] 45.0-49.9, adult
CPT/HCPCS: 71045; 71045-26; 99282; 99283-25; U0002

== ENCOUNTER 2021-05-22 22:17 | Emergency (ER) | payer BC ==
[2021-05-22 22:50] VITALS: BP 127/69; PULSE 97
--- NOTE | 2021-05-22 23:26 | EDM.PDOC ---
ED HPI GENERAL MEDICAL PROBLEM - General Chief Complaint: Lower Extremity Injury/Pain Stated Complaint: SWOLLEN/PAINFUL LEFT LEG Time Seen by Provider: 05/22/21 23:07 Source of Information: Reports: Patient History Limitations: Reports: No Limitations - History of Present Illness INITIAL COMMENTS - FREE TEXT/NARRATIVE: Mrs. Forrest is a very pleasant 21-year-old woman who now presents the ED due to a concern that she may have a left lower extremity DVT. She states that she began a new job this week where she has to stand all day. She developed pain in her left calf yesterday, 05/21/2021. The patient states that she had a left lower extremity DVT with pulmonary embolus in October 2020, when she was . She was on Xarelto for about 4 months, discontinuing it around February. The patient states that she took 2 full-strength aspirins around 14:00 today. Here in the ED, the patient is found to be hemodynamically stable, afebrile, saturating 100% on room air. She appears to be comfortable, in no acute distress. Other than her left calf pain, the patient denies having a recent fever, chills, sore throat, ear pain, nasal or sinus congestion, cough, dyspnea, chest pain, palpitations, nausea, vomiting, constipation, diarrhea, abdominal pain, urinary symptoms, recent weight gain or weight loss, recent bloody bowel movements or black bowel movements, recent joint aches, headaches, or rashes. The patient's PCP is MIGUEL Powell. Her Gas Reverser is Dr. Oliver Peña. She has not received a COVID vaccination. Left Lower Leg Pain Score (Numeric/FACES): 7 - Related Data Allergies Allergy/AdvReac Type Severity Reaction Status Date / Time codeine Allergy Mild Hives Verified 05/03/21 18:45 Home Meds: Home Meds Vits #93/Iron Fum/FA [ Formula Tablet] 1 tab PO DAILY 03/02/20 [History] Ferrous Sulfate 324 mg PO TIDMEALS tab.ec 10/01/20 [Rx] LORazepam [Ativan] 0.5 mg PO Q6H PRN #12 tablet 11/20/20 [Rx] atoMOXetine HCl [Strattera] 60 mg PO DAILY 05/03/21 [History] Past Medical History HEENT History: Reports: Allergic Rhinitis Cardiovascular History: Reports: Blood Clots/VTE/DVT (LLE DVT Oct 2020) Respiratory History: Reports: PE (Oct 2020) Gastrointestinal History: Reports: GERD (untreated) Genitourinary History: Reports: Renal Calculus RELAY TESTER History: Reports: Spontaneous (x 1) : 3 Para: 2 Psychiatric History: Reports: ADHD, Anxiety, Bipolar (untreated), Depression (untreated), Suicidal Ideation Endocrine/Metabolic History: Reports: Obesity/BMI 30+, Other (See Below) (Prediabetes) Hematologic History: Reports: Anemia Dermatologic History: Reports: Eczema - Infectious Disease History Infectious Disease History: Reports: Chicken Pox, MRSA - Past Surgical History HEENT Surgical History: Reports: Oral Surgery (dental extractions), Tonsillectomy Female Surgical History: Reports: D&C (x 1) Social & Family History - Tobacco Use Tobacco Use Status *Q: Current Every Day Tobacco User Years of Tobacco use: 5 Packs/Tins Daily: 0.2 - Caffeine Use Caffeine Use: Reports: Coffee, Soda, Tea Other Caffeine Use: One cup a day - Alcohol Use Alcohol Use History: Yes Alcohol Use Frequency: Socially - Recreational Drug Use Recreational Drug Use: Yes Drug Use in Last 12 Months: No Recreational Drug Type: Reports: Marijuana/Hashish (last smoked 2017) - Living Situation & Occupation Living situation: Reports: , with Spouse, with Family (2 kids) Occupation: Employed ([employer]) Review of Systems - Review of Systems Review Of Systems: Comprehensive ROS is negative, except as noted in HPI. ED EXAM, GENERAL - Physical Exam Exam: See Below Exam Limited By: No Limitations General Appearance: Alert, WD/WN, No Apparent Distress Extremities: Other (Compared to the right, such as swelling, erythema, ecchymosis, or abrasion. No significant edema. The right mid-calf circumference is 45.5 cm, the left 44.5 cm. Neurovascular status of both lower extremities is intact.) Course - Vital Signs Last Recorded V/S: Last Vital Signs Temp 36.0 C L 05/22/21 22:47 Pulse 97 05/22/21 22:47 Resp 20 05/22/21 22:47 BP 127/69 05/22/21 22:47 Pulse Ox 100 05/22/21 22:47 - Orders/Labs/Meds Orders: Active Orders 24 hr Category Date Time Status VL Duplex Lwr Ext Veins Ltd Lt [US] Stat Exams 05/22/21 23:23 Taken Labs: Laboratory Tests 05/22/21 05/22/21 05/22/21 Range/Units 23:30 23:30 23:30 WBC 10.39 H (3.98-10.04) K/mm3 RBC 5.01 (3.98-5.22) M/mm3 Hgb 10.7 L (11.2-15.7) gm/dl Hct 35.6 (34.1-44.9) % MCV 71.1 L (79.4-94.8) fl MCH 21.4 L (25.6-32.2) pg MCHC 30.1 L (32.2-35.5) g/dl RDW Std Deviation 41.5 (36.4-46.3) fL Plt Count 538 H (182-369) K/mm3 MPV 9.5 (9.4-12.3) fl Neutrophils % (Manual) 54 (40-60) % Band Neutrophils % 0 (0-10) % Lymphocytes % (Manual) 36 (20-40) % Atypical Lymphs % 0 % Monocytes % (Manual) 8 (2-10) % Eosinophils % (Manual) 2 (0.7-5.8) % Basophils % (Manual) 0 L (0.1-1.2) Platelet Estimate Increased Hypochromasia 1+ slight Anisocytosis 1+ slight RBC Morph Comment Abnormal PT 11.2 (9.7-12.0) SECONDS INR 1.05 APTT 28.5 (21.7-31.4) SECONDS Sodium 142 (136-145) mEq/L Potassium 3.3 L (3.5-5.1) mEq/L Chloride 106 (98-107) mEq/L Carbon Dioxide 25 (21-32) mEq/L Anion Gap 14.3 (5-15) BUN 9 (7-18) mg/dL Creatinine 1.2 H (0.55-1.02) mg/dL Est Cr Clr Drug Dosing 76.85 mL/min Estimated GFR (MDRD) 56 (>60) mL/min BUN/Creatinine Ratio 7.5 L (14-18) Glucose 89 (70-99) mg/dL Calcium 8.5 (8.5-10.1) mg/dL Total Bilirubin 0.3 (0.2-1.0) mg/dL AST 36 (15-37) U/L ALT 37 (14-59) U/L Alkaline Phosphatase 64 (46-116) U/L Total Protein 7.2 (6.4-8.2) g/dl Albumin 3.5 (3.4-5.0) g/dl Globulin 3.7 gm/dL Albumin/Globulin Ratio 1.0 (1-2) - Re-Assessments/Exams Free Text/Narrative Re-Assessment/Exam: 05/22/21 23:24 As above, the patient started a new job this week where she stands all day, then developed pain to her posterior left leg yesterday. She is concerned that she may have a DVT, as she had a left DVT with PE in October of this year, associated with . She was on Xarelto for about 4 months, off of it since February. On examination, the mid-leg circumference is 1 cm smaller on the left than the right. Nevertheless, I have ordered a Doppler ultrasound of the left lower extremity to evaluate for a PE, along with some blood tests, in the event that it returns positive. 05/23/21 00:23 The patient's CBC is remarkable for slight leukocytosis of 10.39, but with 0% bandemia. Her Hgb is slightly depressed at 10.9, but her Hct is within normal limits at 35.6. She has thrombocytosis of 538,000. Her CMP is remarkable for slight hypokalemia 3.3, and a Cr slightly elevated at 1.2, with a BUN normal at 9, and the remainder of her CMP being unremarkable. Her coags are within normal limits. 05/23/21 01:41 Doppler ultrasound of the left lower extremity is read by [email or web address] as "No evidence of deep venous thrombosis in the left lower extremity." 05/23/21 02:05 Test results discussed with the patient. Her left calf pain appears to be musculoskeletal in etiology. I will discharge her home with recommendation that she take [id number] ibuprofen. She may also want to consider compression stockings. Departure - Departure Time of Disposition: 02:06 Disposition: Home, Self-Care 01 Condition: Good Clinical Impression: Musculoskeletal pain of left lower extremity - Discharge Information *PRESCRIPTION DRUG MONITORING PROGRAM REVIEWED*: Not Applicable *COPY OF PRESCRIPTION DRUG MONITORING REPORT IN PATIENT ANTONIA: Not Applicable Referrals: Loretta Lovell PA-C [Primary Care Provider] - Oliver Peña MD [Physician] - Forms: ED Department Discharge Additional Instructions: You were seen in the emergency room after developing pain in your left calf. Work-up in the ER included several blood tests and a Doppler ultrasound of your left lower extremity. Your entire work-up was unremarkable. You do not have a deep vein clot. Based on your history, physical exam, and ER tests, the cause of your left calf pain is most likely musculoskeletal in etiology. We recommend that you take [id number] ibuprofen, 3 tablets (600 mg) up to every 8 hours, with food, as needed for discomfort. You may also consider wearing compression stockings to decrease edema while standing on your feet for long periods of time. If any other problems, please do not hesitate to return to the ER. Sepsis Event Note (ED) - Focused Exam Vital Signs: Vital Signs Temp Pulse Resp BP Pulse Ox 05/22/21 22:47 36.0 C L 97 20 127/69 100 - My Orders Last 24 Hours: My Active Orders 05/22/21 23:23 VL Duplex Lwr Ext Veins Ltd Lt [US] Stat - Assessment/Plan Last 24 Hours: My Active Orders 05/22/21 23:23 VL Duplex Lwr Ext Veins Ltd Lt [US] Stat
--- NOTE | 2021-05-23 08:38 | US ---
Left lower extremity deep venous ultrasound: Duplex and color Doppler evaluation was obtained of the left common femoral, proximal saphenous, superficial femoral, popliteal, posterior tibial and peroneal veins. Right common femoral vein was also evaluated. Comparison: Prior left lower extremity deep venous ultrasound of 09/18/20. Findings: Normal phasic flow, augmentation and compression are seen. Impression: 1. No findings of deep venous thrombosis within the left lower extremity or within the right common femoral vein. Diagnostic code #1 I agree with preliminary report from [facility], finalized on 05/23/21, 1:50 AM CDT, code 1
== END 2021-05-23 02:15 | disposition home or self-care (01) ==
LOC: JD.ED 22:17
DX: M79.662 Pain in left lower leg (principal); D64.9 Anemia, unspecified; E66.9 Obesity, unspecified; Z68.42 Body mass index [BMI] 45.0-49.9, adult; Z72.0 Tobacco use; Z88.5 Allergy status to narcotic agent; Z79.899 Other long term (current) drug therapy
CPT/HCPCS: 36415; 80053; 85007; 85027; 85610; 85730; 93971-26-LT; 93971-LT; 99283; 99284-25

== ENCOUNTER 2021-07-13 16:37 | Emergency (ER) | payer BC ==
[2021-07-13 16:58] VITALS: BP 116/72; PULSE 79
[2021-07-13] MEDS: Sodium Chloride 0.9% 10 ML Syringe FLUSH PRN ×2 (18:30→18:50)
[2021-07-13] MEDS ORDERED: Iopamidol 755 Mg/ML 100 ML Bottle IVPUSH ONE (18:34)
[2021-07-13] MEDS ORDERED: Sodium Chloride 0.9% 100 ML IV SCH (18:45)
--- NOTE | 2021-07-13 19:08 | CT ---
CT chest Technique: Multiple axial sections were obtained from above the dome of the diaphragm inferiorly through the pubic symphysis. Intravenous contrast was utilized. Study has been performed as a pulmonary angiogram protocol. Comparison: Prior CT chest of 11/18/20. Findings: Pulmonary arteries are well opacified. No filling defects are seen to indicate pulmonary embolism. Thoracic aorta shows no aneurysm. Soft tissue density is noted within the superior mediastinum compatible with residual thymus tissue. No adenopathy is seen within the mediastinum or hilar regions. No pericardial thickening is seen. Visualized upper abdominal structures show nothing acute. Lung window settings were reviewed. Lungs appear clear with no acute parenchymal change. No pleural effusions are seen. Bone window settings were reviewed. No acute osseous abnormality is appreciated. Impression: 1. No findings of pulmonary embolism. 2. Nothing acute is seen on CT study of the chest. Diagnostic code #1
--- NOTE | 2021-07-13 19:42 | EDM.PDOC ---
ED HPI GENERAL MEDICAL PROBLEM - General Chief Complaint: Respiratory Problem Stated Complaint: TIRED SOB Time Seen by Provider: 07/13/21 17:57 Source of Information: Reports: Patient History Limitations: Reports: No Limitations - History of Present Illness INITIAL COMMENTS - FREE TEXT/NARRATIVE: The patient presents with fatigue and shortness of breath. This has been going on for a few days. She has some mid chest pain also. She has no fever, chills, cough, abdominal pain, nausea and vomiting. She had a PE in September after giving . She is off the blood thinners now. She says she has no energy. She has no history of thyroid problems. She has no history of heart problems. She has no history of hypertension. Onset: Gradual Duration: Day(s): Location: Reports: Chest Quality: Reports: Ache Severity: Mild Improves with: Reports: None Worsens with: Reports: None Associated Symptoms: Reports: Chest Pain, Shortness of Breath. Denies: Cough, Fever/Chills, Headaches, Nausea/Vomiting - Related Data Allergies Allergy/AdvReac Type Severity Reaction Status Date / Time codeine Allergy Mild Hives Verified 07/13/21 16:58 Home Meds: Home Meds Vits #93/Iron Fum/FA [ Formula Tablet] 1 tab PO DAILY 03/02/20 [History] Ferrous Sulfate 324 mg PO TIDMEALS tab.ec 10/01/20 [Rx] LORazepam [Ativan] 0.5 mg PO Q6H PRN #12 tablet 11/20/20 [Rx] atoMOXetine HCl [Strattera] 60 mg PO DAILY 05/03/21 [History] Past Medical History - Past Health History Medical/Surgical History: Denies Medical/Surgical History HEENT History: Reports: Allergic Rhinitis Cardiovascular History: Reports: Blood Clots/VTE/DVT Respiratory History: Reports: PE Gastrointestinal History: Reports: GERD Other Gastrointestinal History: family history of colon aneurysm. 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 Took Prozac with PPD due to pt starting to have thoughts of suicide/ideation. Pt plans to start Prozac again after this . No feelings or thoughts of suicide at this time. Endocrine/Metabolic History: Reports: Obesity/BMI 30+, Other (See Below) Other Endocrine/Metabolic History: Patient states insulin resistance and not DM. Hematologic History: Reports: Anemia Immunologic History: Reports: None Oncologic (Cancer) History: Reports: None Dermatologic History: Reports: Eczema - Infectious Disease History Infectious Disease History: Reports: Chicken Pox Other Infectious Disease History: history of MRSA as a child in her elbow. screen and cleared by dr mckinney on 07/24/2019, 07/31/2019, 08/08/2019. Pt had [place] in April of 2020. - Past Surgical History Head Surgeries/Procedures: Reports: None HEENT Surgical History: Reports: Oral Surgery, Tonsillectomy GI Surgical History: Reports: None Female Surgical History: Reports: D&C Endocrine Surgical History: Reports: None Neurological Surgical History: Reports: None Oncologic Surgical History: Reports: None Social & Family History - Family History Family Medical History: No Pertinent Family History Cardiac: Reports: Angina, Hypertension GI: Reports: GERD, Other (See Below) Other GI Family History: abdominal aneurynums OBGYN: Reports: Other (See Below) Endocrine/Metabolic: Reports: Diabetes, type II - Tobacco Use Tobacco Use Status *Q: Never Tobacco User - Caffeine Use Caffeine Use: Reports: Coffee, Soda, Tea Other Caffeine Use: One cup a day - Living Situation & Occupation Living situation: Reports: , with Spouse, with Family (2 kids) Occupation: Employed ([employer] ED ROS GENERAL - Review of Systems Review Of Systems: See Below Constitutional: Reports: Malaise, Weakness, Fatigue. Denies: Fever, Chills HEENT: Reports: No Symptoms Respiratory: Reports: Shortness of Breath. Denies: Cough Cardiovascular: Reports: No Symptoms Endocrine: Reports: Fatigue GI/Abdominal: Reports: No Symptoms : Reports: No Symptoms ED EXAM, GENERAL - Physical Exam Exam: See Below Exam Limited By: No Limitations General Appearance: Alert, No Apparent Distress Ears: Normal External Exam Nose: Normal Inspection Head: Atraumatic, Normocephalic Neck: Normal Inspection Respiratory/Chest: No Respiratory Distress, Lungs Clear, Normal Breath Sounds Cardiovascular: Regular Rate, Rhythm, No Edema, No Murmur GI/Abdominal: Soft, Non-Tender, No Organomegaly, No Mass Back Exam: Normal Inspection Extremities: Normal Inspection #1 Interpretation EKG Date: 07/13/21 Time: 18:30 Rhythm: NSR Rate (Beats/Min): 60 [place]: Normal P-Wave: Present QRS: Normal ST-T: Normal QT: Normal Course - Vital Signs Last Recorded V/S: Last Vital Signs Temp 97.4 F 07/13/21 16:56 Pulse 79 07/13/21 16:56 Resp 18 07/13/21 16:56 BP 116/72 07/13/21 16:56 Pulse Ox 100 07/13/21 16:56 - Orders/Labs/Meds Orders: Active Orders 24 hr Category Date Time Status Cardiac Monitoring [RC] . DIRECTED Care 07/13/21 18:13 Active Peripheral IV Care [RC] . DIRECTED Care 07/13/21 18:14 Active Sodium Chloride 0.9% [Normal Saline] 100 ml Med 07/13/21 18:45 Active IV ASDIRECTED Sodium Chloride 0.9% [Saline Flush] Med 07/13/21 18:13 Active 10 ml FLUSH ASDIRECTED PRN Peripheral IV Insertion Adult [OM.PC] Stat Oth 07/13/21 18:13 Ordered Medication Orders Sodium Chloride (Normal Saline) 100 mls @ 60 mls/hr IV ASDIRECTED WILLIE Last Admin: 07/13/21 18:50 Dose: 60 mls/hr Documented by: [email or web address] Sodium Chloride (Sodium Chloride 0.9% 10 Ml Syringe) 10 ml FLUSH ASDIRECTED PRN PRN Reason: Keep Vein Open Last Admin: 07/13/21 18:50 Dose: 10 ml Documented by: [email or web address] Admin: 07/13/21 18:30 Dose: 10 ml Documented by: [email or web address] Labs: Laboratory Tests 07/13/21 07/13/21 07/13/21 Range/Units 16:55 18:29 18:29 WBC 8.92 (3.98-10.04) K/mm3 RBC 5.26 H (3.98-5.22) M/mm3 Hgb 11.3 (11.2-15.7) gm/dl Hct 37.6 (34.1-44.9) % MCV 71.5 L (79.4-94.8) fl MCH 21.5 L (25.6-32.2) pg MCHC 30.1 L (32.2-35.5) g/dl RDW Std Deviation 42.5 (36.4-46.3) fL Plt Count 529 H (182-369) K/mm3 MPV 9.6 (9.4-12.3) fl Neut % (Auto) 49.4 (34.0-71.1) % Lymph % (Auto) 39.3 (19.3-51.7) % [place] % (Auto) 8.2 (4.7-12.5) % Eos % (Auto) 2.7 (0.7-5.8) Baso % (Auto) 0.3 (0.1-1.2) % Neut # (Auto) 4.40 (1.56-6.13) K/mm3 Lymph # (Auto) 3.51 (1.18-3.74) K/mm3 [place] # (Auto) 0.73 H (0.24-0.36) K/mm3 Eos # (Auto) 0.24 (0.04-0.36) K/mm3 Baso # (Auto) 0.03 (0.01-0.08) K/mm3 Sodium 139 (136-145) mEq/L Potassium 3.6 (3.5-5.1) mEq/L Chloride 105 (98-107) mEq/L Carbon Dioxide 28 (21-32) mEq/L Anion Gap 9.6 (5-15) BUN 14 (7-18) mg/dL Creatinine 1.1 H (0.55-1.02) mg/dL Est Cr Clr Drug Dosing 83.84 mL/min Estimated GFR (MDRD) > 60 (>60) mL/min BUN/Creatinine Ratio 12.7 L (14-18) Glucose 77 (70-99) mg/dL Calcium 8.6 (8.5-10.1) mg/dL Magnesium 2.1 (1.8-2.4) mg/dL Total Bilirubin 0.2 (0.2-1.0) mg/dL AST 26 (15-37) U/L ALT 37 (14-59) U/L Alkaline Phosphatase 67 (46-116) U/L Troponin I < 0.017 (0.00-0.056) ng/mL Total Protein 7.6 (6.4-8.2) g/dl Albumin 3.6 (3.4-5.0) g/dl Globulin 4.0 gm/dL Albumin/Globulin Ratio 0.9 L (1-2) TSH 3rd Generation 0.588 (0.358-3.74) uIU/mL SARS-CoV-2 RNA (LES) Negative (NEGATIVE) Meds: Medications Generic Name Dose Route Start Last Admin Trade Name Freq PRN Reason Stop Dose Admin Sodium Chloride 100 mls @ 60 mls/hr 07/13/21 18:45 07/13/21 18:50 Normal Saline IV 60 mls/hr ASDIRECTED WILLIE Administration Sodium Chloride 10 ml 07/13/21 18:13 07/13/21 18:50 Sodium Chloride 0.9% 10 Ml Syringe FLUSH 10 ml ASDIRECTED PRN Administration Keep Vein Open Discontinued Medications Generic Name Dose Route Start Last Admin Trade Name Freq PRN Reason Stop Dose Admin Iopamidol 100 ml 07/13/21 18:34 07/13/21 18:50 Iopamidol 755 Mg/Ml 100 Ml Bottle IVPUSH 07/13/21 18:35 100 ml ONETIME ONE Administration - Re-Assessments/Exams Free Text/Narrative Re-Assessment/Exam: 07/13/21 19:40 I ordered an IV saline lock, EKG, CT angio of her chest and labs. Her EKG shows a NSR with no acute changes. Her CT angio shows no findings of pulmonary embolism. Nothing acute is seen on CT study of the chest. Her CBC and CMP look good. Her troponin is negative and her TSH is negative. 07/13/21 19:56 She feels about the same. I am not finding a clear cause for her SOB and fatigue. It appears to not be COVID or a PE. I will discharge her home. Departure - Departure Time of Disposition: 20:00 Disposition: Home, Self-Care 01 Condition: Good Clinical Impression: Shortness of breath Fatigue Qualifiers: Fatigue type: unspecified Qualified Code(s): R53.83 - Other fatigue - Discharge Information *PRESCRIPTION DRUG MONITORING PROGRAM REVIEWED*: Not Applicable *COPY OF PRESCRIPTION DRUG MONITORING REPORT IN PATIENT ANTONIA: Not Applicable Referrals: Loretta Lovell PA-C [Primary Care Provider] - 1 Week Forms: ED Department Discharge Additional Instructions: Try to eat a normal healthy diet. Get plenty of sleep. Avoid alcohol. Follow up with Loretta Lovell within a week. Please return if you are worse. Sepsis Event Note (ED) - Evaluation Sepsis Screening Result: No Definite Risk - Focused Exam Vital Signs: Vital Signs Temp Pulse Resp BP Pulse Ox 07/13/21 16:56 97.4 F 79 18 116/72 100 - My Orders Last 24 Hours: My Active Orders 07/13/21 18:13 Cardiac Monitoring [RC] . DIRECTED Sodium Chloride 0.9% [Saline Flush] 10 ml FLUSH ASDIRECTED PRN Peripheral IV Insertion Adult [OM.PC] Stat 07/13/21 18:14 Peripheral IV Care [RC] . DIRECTED 07/13/21 18:45 Sodium Chloride 0.9% [Normal Saline] 100 ml IV ASDIRECTED - Assessment/Plan Last 24 Hours: My Active Orders 07/13/21 18:13 Cardiac Monitoring [RC] . DIRECTED Sodium Chloride 0.9% [Saline Flush] 10 ml FLUSH ASDIRECTED PRN Peripheral IV Insertion Adult [OM.PC] Stat 07/13/21 18:14 Peripheral IV Care [RC] . DIRECTED 07/13/21 18:45 Sodium Chloride 0.9% [Normal Saline] 100 ml IV ASDIRECTED
== END 2021-07-13 20:06 | disposition home or self-care (01) ==
LOC: JD.ED 16:37
DX: R53.83 Other fatigue (principal); R06.02 Shortness of breath; E66.9 Obesity, unspecified; Z88.5 Allergy status to narcotic agent; Z68.42 Body mass index [BMI] 45.0-49.9, adult; Z20.822 Contact with and (suspected) exposure to COVID-19
CPT/HCPCS: 36415; 71275; 80053; 83735; 84443; 84484; 85025; 87635; 93005; 99285; Q9967; U0002

== ENCOUNTER 2021-07-23 18:14 | Emergency (ER) | payer BC ==
[2021-07-23 18:25] VITALS: BP 139/113; PULSE 129
[2021-07-23] MEDS ORDERED: Ondansetron 4 MG/2 ML SDV IVPUSH ONE (18:47)
[2021-07-23] MEDS ORDERED: Sodium Chloride 0.9% 1,000 ML IV ONE (18:47)
[2021-07-23] MEDS ORDERED: HYDROmorphone 0.5 MG/0.5 ML Syringe IVPUSH ONE (18:47)
--- NOTE | 2021-07-23 18:58 | EDM.PDOC ---
ED HPI GENERAL MEDICAL PROBLEM - General Chief Complaint: Gastrointestinal Problem Stated Complaint: VOMITING Time Seen by Provider: 07/23/21 18:21 Source of Information: Reports: Patient History Limitations: Reports: No Limitations, Other (ED vital signs reveal a temp of 98.7, pulse of 129, respiratory rate of 20, blood pressure 139/113, pulse ox 98% on room air) - History of Present Illness INITIAL COMMENTS - FREE TEXT/NARRATIVE: 21-year-old female presents to the emergency department this evening with complaints of vomiting and upper abdominal pain. Patient states that she woke this morning and was nauseated and began vomiting. She states she is probably vomited approximately 20 times today and is unable to keep anything down. She states that after vomiting she developed upper abdominal discomfort. She states it feels like a stabbing discomfort. She denies any chance that she could be because she is currently menstruating. She has not had any fever, chills or cough. She states she has had diarrhea that started today as well. She states that she is otherwise healthy and does not have any medical problems. Abdomen Pain Score (Numeric/FACES): 8 - Related Data Allergies Allergy/AdvReac Type Severity Reaction Status Date / Time codeine Allergy Mild Hives Verified 07/13/21 16:58 Home Meds: Home Meds Vits #93/Iron Fum/FA [ Formula Tablet] 1 tab PO DAILY 03/02/20 [History] LORazepam [Ativan] 0.5 mg PO Q6H PRN #12 tablet 11/20/20 [Rx] atoMOXetine HCl [Strattera] 60 mg PO DAILY 05/03/21 [History] lamoTRIgine [Lamictal] 100 mg PO DAILY 07/23/21 [History] Past Medical History - Past Health History Medical/Surgical History: Denies Medical/Surgical History HEENT History: Reports: Allergic Rhinitis Cardiovascular History: Reports: Blood Clots/VTE/DVT Respiratory History: Reports: PE Gastrointestinal History: Reports: GERD Other Gastrointestinal History: family history of colon aneurysm. Genitourinary History: Reports: Renal Calculus Other Genitourinary History: Right kidney stone during preg BUSINESS DEVELOPMENT History: Reports: Spontaneous Other BUSINESS DEVELOPMENT History: patiet is Musculoskeletal History: Reports: None Neurological History: Reports: Migraines Other Neuro History: patient states induced headaches but no issues prior to Psychiatric History: Reports: ADHD, Anxiety, Bipolar, Depression, Suicidal Ideation Other Psychiatric History: Has not been on meds for bipolar in a long time. Took Prozac with PPD due to pt starting to have thoughts of suicide/ideation. Pt plans to start Prozac again after this . No feelings or thoughts of suicide at this time. Endocrine/Metabolic History: Reports: Obesity/BMI 30+, Other (See Below) Other Endocrine/Metabolic History: Patient states insulin resistance and not DM. Hematologic History: Reports: Anemia Immunologic History: Reports: None Oncologic (Cancer) History: Reports: None Dermatologic History: Reports: Eczema - Infectious Disease History Infectious Disease History: Reports: Chicken Pox Other Infectious Disease History: history of MRSA as a child in her elbow. screen and cleared by dr mckinney on 07/24/2019, 07/31/2019, 08/08/2019. Pt had [place] in April of 2020. - Past Surgical History Head Surgeries/Procedures: Reports: None HEENT Surgical History: Reports: Oral Surgery, Tonsillectomy GI Surgical History: Reports: None Female Surgical History: Reports: D&C Endocrine Surgical History: Reports: None Neurological Surgical History: Reports: None Oncologic Surgical History: Reports: None Social & Family History - Family History Family Medical History: No Pertinent Family History Cardiac: Reports: Angina, Hypertension GI: Reports: GERD, Other (See Below) Other GI Family History: abdominal aneurynums OBGYN: Reports: Other (See Below) Endocrine/Metabolic: Reports: Diabetes, type II - Tobacco Use Tobacco Use Status *Q: Never Tobacco User - Caffeine Use Caffeine Use: Reports: Coffee Other Caffeine Use: One cup a day - Recreational Drug Use Recreational Drug Use: No - Living Situation & Occupation Living situation: Reports: , with Spouse, with Family (2 kids) Occupation: Employed ([employer]) ED ROS GENERAL - Review of Systems Review Of Systems: Comprehensive ROS is negative, except as noted in HPI. ED EXAM, GI/ABD - Physical Exam Exam: See Below Exam Limited By: No Limitations General Appearance: Alert, WD/WN, Moderate Distress Eyes: Bilateral: EOMI Ears: Normal External Exam, Hearing Grossly Normal Nose: Normal Inspection Throat/Mouth: Normal Inspection, Normal Lips, Normal Voice, No Airway Compromise Head: Atraumatic Neck: Normal Inspection, Supple Respiratory/Chest: No Respiratory Distress, Lungs Clear, Normal Breath Sounds, No Accessory Muscle Use, Chest Non-Tender Cardiovascular: Normal Peripheral Pulses, Regular Rate, Rhythm, No Edema, No Murmur GI/Abdominal Exam: Normal Bowel Sounds, Soft, No Distention, Tender (Right and left upper quadrants) (Female) Exam: Deferred Rectal (Female) Exam: Deferred Back Exam: Normal Inspection Extremities: Normal Inspection Neurological: Alert, Oriented, Normal Cognition Psychiatric: Normal Affect, Normal Mood Skin Exam: Warm, Dry, Intact, Normal Color, No Rash Lymphatic: No Adenopathy Course - Vital Signs Text/Narrative:: As stated above, 21-year-old female presents to the emergency department with vomiting, diarrhea and upper abdominal pain. On physical exam, the patient is sitting up in bed crouched over guarding her abdomen. She is in obvious pain as the discomfort comes in waves. Abdomen is soft however tender in the right and left upper quadrants. Bowel tones are positive. Lung sounds are clear to auscultation. Will obtain lab studies to include a CBC, CMP, C-reactive protein, qualitative hCG and urinalysis with micro and culture if indicated. We will also give the patient a liter normal saline as she is likely dehydrated as well as Zofran and Dilaudid for the discomfort. Last Recorded V/S: Last Vital Signs Temp 98.7 F 07/23/21 18:24 Pulse 129 H 07/23/21 18:24 Resp 20 07/23/21 18:24 BP 139/113 H 07/23/21 18:24 Pulse Ox 98 07/23/21 18:24 - Orders/Labs/Meds Orders: Active Orders 24 hr Category Date Time Status Abdomen Pelvis w Cont [CT] Stat Exams 07/23/21 20:04 Taken Sodium Chloride 0.9% [Saline Flush] Med 07/23/21 18:47 Active 10 ml FLUSH ASDIRECTED PRN Saline Lock Insert [OM.PC] Stat Oth 07/23/21 18:47 Ordered Medication Orders Sodium Chloride (Sodium Chloride 0.9% 10 Ml Syringe) 10 ml FLUSH ASDIRECTED PRN PRN Reason: Keep Vein Open Last Admin: 07/23/21 20:24 Dose: 10 ml Documented by: Admin: 07/23/21 19:14 Dose: 10 ml Documented by: KENNEDY Labs: Laboratory Tests 07/23/21 07/23/21 07/23/21 Range/Units 18:25 18:30 18:50 WBC 15.98 H (3.98-10.04) K/mm3 RBC 5.92 H (3.98-5.22) M/mm3 Hgb 12.8 D (11.2-15.7) gm/dl Hct 42.1 (34.1-44.9) % MCV 71.1 L (79.4-94.8) fl MCH 21.6 L (25.6-32.2) pg MCHC 30.4 L (32.2-35.5) g/dl RDW Std Deviation 43.6 (36.4-46.3) fL Plt Count 567 H (182-369) K/mm3 MPV 10.3 (9.4-12.3) fl Neut % (Auto) 88.3 H (34.0-71.1) % Lymph % (Auto) 5.3 L (19.3-51.7) % [place] % (Auto) 4.9 (4.7-12.5) % Eos % (Auto) 1.2 (0.7-5.8) Baso % (Auto) 0.1 (0.1-1.2) % Neut # (Auto) 14.12 H (1.56-6.13) K/mm3 Lymph # (Auto) 0.84 L (1.18-3.74) K/mm3 [place] # (Auto) 0.78 H (0.24-0.36) K/mm3 Eos # (Auto) 0.19 (0.04-0.36) K/mm3 Baso # (Auto) 0.02 (0.01-0.08) K/mm3 Sodium (136-145) mEq/L Potassium (3.5-5.1) mEq/L Chloride (98-107) mEq/L Carbon Dioxide (21-32) mEq/L Anion Gap (5-15) BUN (7-18) mg/dL Creatinine (0.55-1.02) mg/dL Est Cr Clr Drug Dosing mL/min Estimated GFR (MDRD) (>60) mL/min BUN/Creatinine Ratio (14-18) Glucose (70-99) mg/dL Calcium (8.5-10.1) mg/dL Magnesium (1.8-2.4) mg/dL Total Bilirubin (0.2-1.0) mg/dL AST (15-37) U/L ALT (14-59) U/L Alkaline Phosphatase (46-116) U/L C-Reactive Protein (<1.0) mg/dL Total Protein (6.4-8.2) g/dl Albumin (3.4-5.0) g/dl Globulin gm/dL Albumin/Globulin Ratio (1-2) Lipase (73-393) U/L HCG, Qual Negative (NEGATIVE) Urine Color (Yellow) Urine Appearance (Clear) Urine pH (5.0-8.0) Ur Specific [place] (1.005-1.030) Urine Protein (Negative) Urine Glucose (UA) (Negative) Urine Ketones (Negative) Urine Occult Blood (Negative) Urine Nitrite (Negative) Urine Bilirubin (Negative) Urine Urobilinogen (0.2-1.0) Ur Leukocyte Esterase (Negative) Urine RBC (0-5) /hpf Urine WBC (0-5) /hpf Ur Squamous Epith Cells (0-5) /hpf Urine Bacteria (FEW) /hpf Urine Mucus (FEW) /hpf Influenza Type A RNA Negative (NEGATIVE) Influenza Type B RNA Negative (NEGATIVE) SARS-CoV-2 RNA (LES) Negative (NEGATIVE) 07/23/21 07/23/21 07/23/21 Range/Units 18:50 18:50 19:16 WBC (3.98-10.04) K/mm3 RBC (3.98-5.22) M/mm3 Hgb (11.2-15.7) gm/dl Hct (34.1-44.9) % MCV (79.4-94.8) fl MCH (25.6-32.2) pg MCHC (32.2-35.5) g/dl RDW Std Deviation (36.4-46.3) fL Plt Count (182-369) K/mm3 MPV (9.4-12.3) fl Neut % (Auto) (34.0-71.1) % Lymph % (Auto) (19.3-51.7) % [place] % (Auto) (4.7-12.5) % Eos % (Auto) (0.7-5.8) Baso % (Auto) (0.1-1.2) % Neut # (Auto) (1.56-6.13) K/mm3 Lymph # (Auto) (1.18-3.74) K/mm3 [place] # (Auto) (0.24-0.36) K/mm3 Eos # (Auto) (0.04-0.36) K/mm3 Baso # (Auto) (0.01-0.08) K/mm3 Sodium 139 (136-145) mEq/L Potassium 4.2 (3.5-5.1) mEq/L Chloride 106 (98-107) mEq/L Carbon Dioxide 20 L (21-32) mEq/L Anion Gap 17.2 H (5-15) BUN 14 (7-18) mg/dL Creatinine 1.2 H (0.55-1.02) mg/dL Est Cr Clr Drug Dosing 76.85 mL/min Estimated GFR (MDRD) 56 (>60) mL/min BUN/Creatinine Ratio 11.7 L (14-18) Glucose 118 H (70-99) mg/dL Calcium 8.8 (8.5-10.1) mg/dL Magnesium 1.7 L (1.8-2.4) mg/dL Total Bilirubin 0.8 (0.2-1.0) mg/dL AST 14 L (15-37) U/L ALT 27 (14-59) U/L Alkaline Phosphatase 77 (46-116) U/L C-Reactive Protein 1.4 H* (<1.0) mg/dL Total Protein 7.9 (6.4-8.2) g/dl Albumin 3.7 (3.4-5.0) g/dl Globulin 4.2 gm/dL Albumin/Globulin Ratio 0.9 L (1-2) Lipase 113 (73-393) U/L HCG, Qual (NEGATIVE) Urine Color Yellow (Yellow) Urine Appearance Clear (Clear) Urine pH 6.0 (5.0-8.0) Ur Specific [place] > or = 1.030 (1.005-1.030) Urine Protein Trace H (Negative) Urine Glucose (UA) Negative (Negative) Urine Ketones Negative (Negative) Urine Occult Blood Negative (Negative) Urine Nitrite Negative (Negative) Urine Bilirubin 1+ H (Negative) Urine Urobilinogen 0.2 (0.2-1.0) Ur Leukocyte Esterase Negative (Negative) Urine RBC 0-5 (0-5) /hpf Urine WBC 0-5 (0-5) /hpf Ur Squamous Epith Cells 0-5 (0-5) /hpf Urine Bacteria Few (FEW) /hpf Urine Mucus Moderate H (FEW) /hpf Influenza Type A RNA (NEGATIVE) Influenza Type B RNA (NEGATIVE) SARS-CoV-2 RNA (LES) (NEGATIVE) Meds: Medications Generic Name Dose Route Start Last Admin Trade Name Freq PRN Reason Stop Dose Admin Sodium Chloride 10 ml 07/23/21 18:47 07/23/21 20:24 Sodium Chloride 0.9% 10 Ml Syringe FLUSH 10 ml ASDIRECTED PRN Administration Keep Vein Open Discontinued Medications Generic Name Dose Route Start Last Admin Trade Name Freq PRN Reason Stop Dose Admin Hydromorphone HCl 0.5 mg 07/23/21 18:47 07/23/21 19:14 Hydromorphone 0.5 Mg/0.5 Ml Syringe IVPUSH 07/23/21 18:48 0.5 mg ONETIME ONE Administration Hyoscyamine 0.125 mg 07/23/21 21:23 Hyoscyamine 0.125 Mg Tab.Sl SL 07/23/21 21:24 ONETIME ONE Sodium Chloride 1,000 mls @ 999 mls/hr 07/23/21 18:47 07/23/21 19:14 Normal Saline IV 07/23/21 19:47 999 mls/hr ONETIME ONE Administration Iopamidol 100 ml 07/23/21 20:10 07/23/21 20:24 Iopamidol 612 Mg/Ml 100 Ml Bottle IVPUSH 07/23/21 20:11 100 ml ONETIME ONE Administration Iopamidol 50 ml 07/23/21 20:11 07/23/21 20:24 Iopamidol 612 Mg/Ml 50 Ml Sdv IVPUSH 07/23/21 20:12 35 ml ONETIME ONE Administration Ondansetron HCl 4 mg 07/23/21 18:47 07/23/21 19:15 Ondansetron 4 Mg/2 Ml Sdv IVPUSH 07/23/21 18:48 4 mg ONETIME ONE Administration - Re-Assessments/Exams Free Text/Narrative Re-Assessment/Exam: 07/23/21 20:39 Lab studies reveal a WBC of 15.98, hemoglobin 12.8, hematocrit 42.1, platelet count 567 Chemistry reveals a sodium of 139, potassium 4.2, carbon dioxide 20, anion gap 1 7.2, BUN 14, creatinine 1.2, glucose 118, magnesium 1.7, AST 14, ALT 27, C- reactive protein 1.4 hCG qualitative negative, urinalysis reveals a trace of protein, 1+ bilirubin and moderate mucus Serology reveals influenza a and B are negative as well as Covid swab. CT of the abdomen and pelvis has been ordered and I am waiting for radiologist read. 07/23/21 21:[address] impression CT of the abdomen: 1. Fluid throughout the gastrointestinal tract suggests gastroenteritis. There is no evidence of bowel obstruction or inflammation. 2. Distended gallbladder which may be related to fasting state. If there were right upper quadrant tenderness, further evaluation with right upper quadrant ultrasound might be considered. 3. Enlarged fatty liver Patient states she is feeling slightly better after receiving IV fluids, Zofran and Dilaudid. She states she is still slightly nauseated however her chief complaint is generalized abdominal cramping. I do not believe there is an infective state present I think she had an elevated white count due to stress and discomfort. As the C-reactive protein was not significantly elevated. We will give the patient Levsin sublingual to see if we can abort the abdominal cramping. Patient will be then discharged to home with a prescription for Zofran ODT. She is agreeable to this plan of care. Departure - Departure Time of Disposition: 21:52 Disposition: Home, Self-Care 01 Condition: Good Clinical Impression: Gastroenteritis - Discharge Information Instructions: Viral Gastroenteritis, Adult, [id number] Referrals: Loretta Lovell PA-C [Primary Care Provider] - Forms: ED Department Discharge Additional Instructions: You were seen in the emergency department this evening with nausea, vomiting, diarrhea and upper abdominal discomfort. Lab studies were completed which did show an elevated white blood cell count however I think this is due to dehydration and stress response. Your inflammatory marker was not significantly elevated to lead me to believe that there is any infective process. CT scan of the abdomen was completed which did show a fluid throughout the gastrointestinal tract suggesting gastroenteritis. After receiving IV fluids, nausea medication and pain medication you did feel somewhat better however still had generalized abdominal cramping. So, you did receive a medication called Levsin. This likely will pass in about 24 hours or so. I have given you a prescription for a medication called Zofran that is used to treat nausea. You may take [address] it under your tongue and allow to dissolve and then wait approximately 30 minutes prior to eating and drinking. You may take this medication every 6 hours as needed. Be sure to drink plenty of fluids to stay hydrated. Recommend clear liquid diet only for the next 24 hours and then advance to a bland diet as tolerated. Should your condition worsen or change, do not hesitate returning to the emergency department. Sepsis Event Note (ED) - Focused Exam Vital Signs: Vital Signs Temp Pulse Resp BP Pulse Ox 07/23/21 18:24 98.7 F 129 H 20 139/113 H 98 - My Orders Last 24 Hours: My Active Orders 07/23/21 18:47 Sodium Chloride 0.9% [Saline Flush] 10 ml FLUSH ASDIRECTED PRN Saline Lock Insert [OM.PC] Stat 07/23/21 20:04 Abdomen Pelvis w Cont [CT] Stat - Assessment/Plan Last 24 Hours: My Active Orders 07/23/21 18:47 Sodium Chloride 0.9% [Saline Flush] 10 ml FLUSH ASDIRECTED PRN Saline Lock Insert [OM.PC] Stat 07/23/21 20:04 Abdomen Pelvis w Cont [CT] Stat
[2021-07-23] MEDS: Sodium Chloride 0.9% 10 ML Syringe FLUSH PRN ×2 (19:14→20:24)
[2021-07-23 19:38] LABS: CORONAVIRUS COVID-19 NAA NEGATIVE (NEGATIVE)
[2021-07-23] MEDS ORDERED: Iopamidol 612 MG/ML 100 ML Bottle IVPUSH ONE (20:10)
[2021-07-23] MEDS ORDERED: Iopamidol 612 MG/ML 50 ML SDV IVPUSH ONE (20:11)
[2021-07-23] MEDS ORDERED: Hyoscyamine 0.125 MG Tab.SL SL ONE (21:23)
--- NOTE | 2021-07-24 06:56 | CT ---
CT abdomen and pelvis Technique: Multiple axial sections were obtained from above the dome of the diaphragm inferiorly through the pubic symphysis. Intravenous contrast was utilized. No oral contrast has been given. Delayed images were also obtained through the bladder. Reconstructed coronal and sagittal images were obtained. Comparison: No prior CT abdomen or pelvis study is available, prior abdominal x-ray of 05/24/15 was utilized. Findings: Visualized lung bases show nothing acute. Liver contains no focal abnormality. Liver is slightly enlarged. Spleen size is normal. Adrenal glands show no nodule. Pancreas shows no discrete abnormality. Gallbladder contains no calcified gallstones. Kidneys show symmetric contrast enhancement. No hydronephrosis or mass is seen. Abdominal aorta shows no aneurysm. No retroperitoneal adenopathy is seen. Small fat-containing hernia is noted anteriorly slightly above the umbilicus. Small containing umbilical hernia is also noted. No pelvic mass or adenopathy is seen. Appendix is not visualized with certainty. Fluid is seen within the lumen of the small bowel and right colon. No inflammatory change is seen. Minimal nabothian cyst is seen within the cervix. Delayed images show contrast within the distal left ureter and bladder. Bone window settings were reviewed which show no acute osseous abnormality. Impression: 1. Fluid within the small bowel and right colon, no dilatation is seen. These findings are suspicious for change from gastroenteritis. 2. Small fat-containing anterior abdominal wall hernia slightly above the umbilicus. Small fat-containing umbilical hernia is seen. 3. Other findings believed to be chronic as described above. No other acute abnormality is appreciated. Diagnostic code #2 I agree with preliminary report from [facility], finalized on 07/23/21, 10:02 PM CDT, code 1
== END 2021-07-23 22:32 | disposition home or self-care (01) ==
LOC: JD.ED 18:14
DX: K52.9 Noninfective gastroenteritis and colitis, unspecified (principal); Z20.822 Contact with and (suspected) exposure to COVID-19; Z88.5 Allergy status to narcotic agent
CPT/HCPCS: 0240U; 36415; 74177; 80053; 81001; 83690; 83735; 84703; 85025; 86140; 96361; 96374; 96375; 99284; A9270; J1170; J2405; J7030; Q9967

== ENCOUNTER 2021-10-03 18:27 | Emergency (ER) | payer BC ==
--- NOTE | 2021-10-03 19:10 | EDM.PDOC ---
<Lisa Smart - Last Filed: 10/03/21 19:05> ED HPI GENERAL MEDICAL PROBLEM - General Chief Complaint: Respiratory Problem Stated Complaint: SOB, EXPOSURE TO COVID, CHEST PAIN Time Seen by Provider: 10/03/21 18:45 Source of Information: Reports: Patient History Limitations: Reports: No Limitations - History of Present Illness INITIAL COMMENTS - FREE TEXT/NARRATIVE: Mrs. Yessenia Forrest is a pleasant 21-year-old female who presents for evaluation of illness. 2 days ago she began coughing, and today a headache, that she describes as "a lot of pressure" and rates it a 6/10 started today. She denies any vomiting, constipation or diarrhea. Denies shortness of breath or chest pain. She reports LMP 08/23/22, with a positive test. He is COVID+. Onset Date: 10/02/21 Generalized Pain Score (Numeric/FACES): 5 - Related Data Allergies Allergy/AdvReac Type Severity Reaction Status Date / Time codeine Allergy Mild Hives Verified 10/03/21 18:49 Past Medical History - Past Health History Medical/Surgical History: Denies Medical/Surgical History HEENT History: Reports: Allergic Rhinitis Cardiovascular History: Reports: Blood Clots/VTE/DVT Respiratory History: Reports: PE Gastrointestinal History: Reports: GERD Other Gastrointestinal History: family history of colon aneurysm. 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 Took Prozac with PPD due to pt starting to have thoughts of suicide/ideation. Pt plans to start Prozac again after this . No feelings or thoughts of suicide at this time. Endocrine/Metabolic History: Reports: Obesity/BMI 30+, Other (See Below) Other Endocrine/Metabolic History: Patient states insulin resistance and not DM. Hematologic History: Reports: Anemia Immunologic History: Reports: None Oncologic (Cancer) History: Reports: None Dermatologic History: Reports: Eczema - Infectious Disease History Infectious Disease History: Reports: Chicken Pox Other Infectious Disease History: history of MRSA as a child in her elbow. screen and cleared by dr mckinney on 07/24/2019, 07/31/2019, 08/08/2019. Pt had [place] in April of 2020. - Past Surgical History Head Surgeries/Procedures: Reports: None HEENT Surgical History: Reports: Oral Surgery, Tonsillectomy GI Surgical History: Reports: None Female Surgical History: Reports: D&C Endocrine Surgical History: Reports: None Neurological Surgical History: Reports: None Oncologic Surgical History: Reports: None Social & Family History - Family History Family Medical History: No Pertinent Family History Cardiac: Reports: Angina, Hypertension GI: Reports: GERD, Other (See Below) Other GI Family History: abdominal aneurynums OBGYN: Reports: Other (See Below) Endocrine/Metabolic: Reports: Diabetes, type II - Tobacco Use Tobacco Use Status *Q: Never Tobacco User Second Hand Smoke Exposure: No - Caffeine Use Caffeine Use: Reports: None Other Caffeine Use: One cup a day - Recreational Drug Use Recreational Drug Use: No - Living Situation & Occupation Living situation: Reports: , with Spouse, with Family (2 kids) Occupation: Employed ([employer] ED ROS GENERAL - Review of Systems Review Of Systems: Comprehensive ROS is negative, except as noted in HPI. Constitutional: Reports: No Symptoms HEENT: Reports: Other (Sinus headache) Respiratory: Reports: Cough. Denies: Shortness of Breath, Sputum, Hemoptysis Cardiovascular: Reports: No Symptoms Endocrine: Reports: No Symptoms GI/Abdominal: Reports: No Symptoms : Reports: No Symptoms Musculoskeletal: Reports: No Symptoms Skin: Reports: No Symptoms Neurological: Reports: No Symptoms Psychiatric: Reports: No Symptoms Hematologic/Lymphatic: Reports: No Symptoms Immunologic: Reports: No Symptoms ED EXAM, GENERAL - Physical Exam Exam: See Below Exam Limited By: No Limitations General Appearance: Alert, WD/WN, No Apparent Distress, Other (Temp 99.1, Pulse 94, RR 18, BP 135/89, SpO2 100% on room air. ) Eye Exam: Bilateral Eye: EOMI, PERRL Ears: Normal External Exam, Hearing Grossly Normal Ear Exam: Left Ear: TM Bulging, Bilateral Ear: Erythema Nose: Normal Inspection Throat/Mouth: Normal Inspection, Normal Voice, No Airway Compromise Head: Atraumatic, Normocephalic Neck: Normal Inspection, Supple, Non-Tender, Full Range of Motion Respiratory/Chest: No Respiratory Distress, Lungs Clear, Normal Breath Sounds Cardiovascular: Regular Rate, Rhythm Back Exam: Normal Inspection Extremities: Normal Inspection Neurological: Alert, Oriented, Normal Cognition, No Motor/Sensory Deficits Psychiatric: Normal Affect, Normal Mood Skin Exam: Warm, Dry, Intact, Normal Color, No Rash Lymphatic: No Adenopathy Departure - Departure Disposition: Home, Self-Care 01 Clinical Impression: COVID-19 - Discharge Information Instructions: and COVID-19, 10 Things You Can Do to Manage Your COVID-19 Symptoms at Home - [facility] (04/09/2021) Referrals: Loretta Lovell PA-C [Primary Care Provider] - Forms: ED Department Discharge Additional Instructions: You were seen in the ER today for ongoing and/or worsening respiratory symptoms. You were diagnosed with COVID-19 at today's visit. You were given IV monoclonal antibody therapy at today's visit, this medication is thought to work by making you a little less sick, and helps to decrease the length of time that you are sick. Please try to increase your oral fluid intake, and eat multiple small meals throughout the day, to keep yourself healthy. You need to keep yourself nourished in order to fight off this disease. You can try a liquid diet like gatorade/powerade as well to get your electrolytes. You may take 500 mg Tylenol every hours 6 hours for pain/fever relief. Do not exceed 4000 mg Tylenol in a 24-hour time span. However, running a fever is your body's natural response to illness, and it allows the body to develop antibodies to disease, we are recommending trying to limit the use of Tylenol as much as possible to allow your body's natural immune response. Recommend you obtain a pulse oximeter and monitor your oxygen levels at home, you should place the monitor on your finger, and sit in a calm, quiet position for a few minutes and then record the number that is on the screen. If this consistently below 90% on room air without movement, this would be cause for concern to come back to the hospital for further management of your COVID-19 disease. Current CDC guidelines are that you quarantine/isolate for the first 5 days from symptom onset; and then you may leave the house on last 5 days if you are masked. <Lety Vargas V - Last Filed: 10/03/21 21:16> Course - Vital Signs Last Recorded V/S: Last Vital Signs Temp 99.1 F 10/03/21 18:43 Pulse 94 10/03/21 18:43 Resp 18 10/03/21 18:43 BP 135/89 10/03/21 18:43 Pulse Ox 100 10/03/21 18:43 - Orders/Labs/Meds Orders: Active Orders 24 hr Category Date Time Status Peripheral IV Care [RC] . DIRECTED Care 10/03/21 19:56 Ordered Vital Signs [RC] Q15M Care 10/03/21 19:56 Ordered EPINEPHrine [Adrenalin] Med 10/03/21 19:56 Active 0.3 mg IM ASDIRECTED PRN Famotidine [Pepcid] Med 10/03/21 19:56 Active 20 mg IVPUSH ASDIRECTED PRN Sodium Chloride 0.9% [Saline Flush] Med 10/03/21 19:56 Active 10 ml FLUSH ASDIRECTED PRN Sodium Chloride 0.9% [Saline Flush] Med 10/03/21 20:00 Active 30 ml FLUSH ASDIRECTED diphenhydrAMINE [Benadryl] Med 10/03/21 19:56 Active 50 mg IVPUSH ASDIRECTED PRN methylPREDNISolone Sod Succ [Solu-MEDROL] Med 10/03/21 19:56 Active 125 mg IVPUSH ASDIRECTED PRN Peripheral IV Insertion Adult [OM.PC] Routine Oth 10/03/21 19:56 Ordered Medication Orders Diphenhydramine HCl (Diphenhydramine 50 Mg/Ml Sdv) 50 mg IVPUSH ASDIRECTED PRN PRN Reason: hypersensitivity reaction Epinephrine HCl (Epinephrine 1 Mg/Ml Sdv) 0.3 mg IM ASDIRECTED PRN PRN Reason: hypersensitivity reaction Famotidine (Famotidine 20 Mg/2 Ml Sdv) 20 mg IVPUSH ASDIRECTED PRN PRN Reason: hypersensitivity reaction Methylprednisolone Sodium Succinate (Methylprednisolone Sodium Succinate 125 Mg/2 Ml Sdv) 125 mg IVPUSH ASDIRECTED PRN PRN Reason: hypersensitivity reaction Sodium Chloride (Sodium Chloride 0.9% 10 Ml Syringe) 30 ml FLUSH ASDIRECTED WILLIE Sodium Chloride (Sodium Chloride 0.9% 10 Ml Syringe) 10 ml FLUSH ASDIRECTED PRN PRN Reason: Keep Vein Open Labs: Laboratory Tests 10/03/21 Range/Units 18:55 Influenza Type A RNA Negative (NEGATIVE) RSV RNA (INAAT) Negative (NEGATIVE) Influenza Type B RNA Negative (NEGATIVE) SARS-CoV-2 RNA (LES) Positive H (NEGATIVE) Meds: Medications Generic Name Dose Route Start Last Admin Trade Name Freq PRN Reason Stop Dose Admin Diphenhydramine HCl 50 mg 10/03/21 19:56 Diphenhydramine 50 Mg/Ml Sdv IVPUSH ASDIRECTED PRN hypersensitivity reaction Epinephrine HCl 0.3 mg 10/03/21 19:56 Epinephrine 1 Mg/Ml Sdv IM ASDIRECTED PRN hypersensitivity reaction Famotidine 20 mg 10/03/21 19:56 Famotidine 20 Mg/2 Ml Sdv IVPUSH ASDIRECTED PRN hypersensitivity reaction Methylprednisolone Sodium Succinate 125 mg 10/03/21 19:56 Methylprednisolone Sodium Succinate 125 Mg/2 Ml Sdv IVPUSH ASDIRECTED PRN hypersensitivity reaction Sodium Chloride 30 ml 10/03/21 20:00 Sodium Chloride 0.9% 10 Ml Syringe FLUSH ASDIRECTED WILLIE Sodium Chloride 10 ml 10/03/21 19:56 Sodium Chloride 0.9% 10 Ml Syringe FLUSH ASDIRECTED PRN Keep Vein Open Discontinued Medications Generic Name Dose Route Start Last Admin Trade Name Freq PRN Reason Stop Dose Admin CASIRIVIMAB/IMDEVIMAB 10 ml/ 110 mls @ 220 mls/hr 10/03/21 19:56 10/03/21 20:28 Sodium Chloride IV 10/03/21 20:25 220 mls/hr ONETIME ONE Administration - Re-Assessments/Exams Free Text/Narrative Re-Assessment/Exam: 10/03/21 19:12 Patient presents to the ER for evaluation of her multiple upper respiratory symptoms. COVID/flu/RSV screen was obtained at the time of triage. I have read and reviewed the student's HPI and examined the patient and agree with RADHA Gauthier. 10/03/21 19:57 Patient is positive for COVID-19. I spoke with the patient to provide information about monoclonal antibody treatment. I offered them the "Patient and caregiver EU monoclonal antibody fact sheet" to read and review. I stated that the drug has been approved by an emergency use authorization (EUA) process and has not been fully FDA reviewed or approved. The patient meets the EUA requirements. I discussed there are other potential treatment options that are currently not FDA approved to treat COVID-19. I did offer an opportunity to ask questions and all questions were answered. The patient voiced understanding and agreed to proceed with the treatment. Departure - Departure Time of Disposition: 21:15 Condition: Good - Discharge Information *PRESCRIPTION DRUG MONITORING PROGRAM REVIEWED*: No *COPY OF PRESCRIPTION DRUG MONITORING REPORT IN PATIENT ANTONIA: No Sepsis Event Note (ED) - Focused Exam Vital Signs: Vital Signs Temp Pulse Resp BP Pulse Ox 10/03/21 18:43 99.1 F 94 18 135/89 100 - My Orders Last 24 Hours: My Active Orders 10/03/21 19:56 Peripheral IV Care [RC] . DIRECTED Vital Signs [RC] Q15M EPINEPHrine [Adrenalin] 0.3 mg IM ASDIRECTED PRN Famotidine [Pepcid] 20 mg IVPUSH ASDIRECTED PRN Sodium Chloride 0.9% [Saline Flush] 10 ml FLUSH ASDIRECTED PRN diphenhydrAMINE [Benadryl] 50 mg IVPUSH ASDIRECTED PRN methylPREDNISolone Sod Succ [Solu-MEDROL] 125 mg IVPUSH ASDIRECTED PRN Peripheral IV Insertion Adult [OM.PC] Routine 10/03/21 20:00 Sodium Chloride 0.9% [Saline Flush] 30 ml FLUSH ASDIRECTED - Assessment/Plan Last 24 Hours: My Active Orders 10/03/21 19:56 Peripheral IV Care [RC] . DIRECTED Vital Signs [RC] Q15M EPINEPHrine [Adrenalin] 0.3 mg IM ASDIRECTED PRN Famotidine [Pepcid] 20 mg IVPUSH ASDIRECTED PRN Sodium Chloride 0.9% [Saline Flush] 10 ml FLUSH ASDIRECTED PRN diphenhydrAMINE [Benadryl] 50 mg IVPUSH ASDIRECTED PRN methylPREDNISolone Sod Succ [Solu-MEDROL] 125 mg IVPUSH ASDIRECTED PRN Peripheral IV Insertion Adult [OM.PC] Routine 10/03/21 20:00 Sodium Chloride 0.9% [Saline Flush] 30 ml FLUSH ASDIRECTED
[2021-10-03 19:16] VITALS: BP 135/89; PULSE 94
[2021-10-03 19:43] LABS: CORONAVIRUS COVID-19 NAA POSITIVE (NEGATIVE)
[2021-10-03] MEDS ORDERED: Famotidine 20 MG/2 ML SDV IVPUSH PRN (19:56)
[2021-10-03] MEDS ORDERED: methylPREDNISolone Sodium Succinate 125 MG/2 ML SDV IVPUSH PRN (19:56)
[2021-10-03] MEDS ORDERED: Sodium Chloride 0.9% 10 ML Syringe FLUSH PRN (19:56)
[2021-10-03] MEDS ORDERED: diphenhydrAMINE 50 MG/ML SDV IVPUSH PRN (19:56)
[2021-10-03] MEDS ORDERED: EPINEPHrine 1 MG/ML SDV IM PRN (19:56)
[2021-10-03] MEDS ORDERED: Sodium Chloride 0.9% 10 ML Syringe FLUSH SCH (20:00)
== END 2021-10-03 22:07 | disposition home or self-care (01) ==
LOC: JD.ED 18:27
DX: U07.1 COVID-19 (principal); Z88.5 Allergy status to narcotic agent
CPT/HCPCS: 0241U; 99284; M0243; Q0243

== ENCOUNTER 2021-10-23 20:15 | Emergency (ER) | payer BC ==
[2021-10-23 20:30] VITALS: BP 117/96; PULSE 90
== END 2021-10-23 22:12 | disposition home or self-care (01) ==
LOC: JD.ED 20:15
DX: O20.0 Threatened abortion (principal); Z3A.09 9 weeks gestation of pregnancy; Z88.5 Allergy status to narcotic agent
CPT/HCPCS: 36415; 84702; 85025; 86850; 86900; 86901; 99284

== ENCOUNTER 2021-12-30 17:37 | Emergency (ER) | payer BC ==
[2021-12-30 18:03] VITALS: BP 127/71; PULSE 68
== END 2021-12-30 20:39 | disposition home or self-care (01) ==
LOC: JD.ED 17:37
DX: O99.891 Other specified diseases and conditions complicating pregnancy (principal); R07.89 Other chest pain; Z88.5 Allergy status to narcotic agent; Z3A.18 18 weeks gestation of pregnancy
CPT/HCPCS: 36415; 80053; 84484; 85025; 85379; 93005; 99285-25

== ENCOUNTER 2022-05-24 11:04 | Inpatient (IN) | payer BC ==
[2022-05-24] MEDS ORDERED: Calcium Carbonate 500 MG Tab.Chew PO PRN (11:47)
[2022-05-24] MEDS ORDERED: Ondansetron 4 MG/2 ML SDV IVPUSH PRN (11:47)
[2022-05-24] MEDS ORDERED: Sodium Chloride 0.9% 10 ML Syringe FLUSH PRN (11:47)
[2022-05-24] MEDS ORDERED: Oxytocin/Lactated Ringers 10 UNIT/1,000 ML BAG IV SCH ×2 (12:00)
[2022-05-24] MEDS: Lactated Ringers 1,000 ML IV SCH ×3 (12:20→15:13)
[2022-05-24] MEDS ORDERED: Ampicillin 2 GM in Sodium Chloride 0.9% 100 ML IV ONE (12:30)
[2022-05-24] MEDS ORDERED: fentaNYL 100 MCG/2 ML SDV EPIDUR PRN (13:04)
[2022-05-24] MEDS ORDERED: ePHEDrine 50 MG/ML SDV IVPUSH PRN (13:04)
[2022-05-24] MEDS ORDERED: Bupivacaine/fentaNYL/NS 100 ML Bag EPIDUR PRN (13:04)
[2022-05-24] MEDS ORDERED: diphenhydrAMINE 50 MG/ML SDV IVPUSH PRN (13:04)
[2022-05-24] MEDS: Ampicillin 1 GM in Sodium Chloride 0.9% 100 ML IV SCH ×2 (16:21→22:27)
[2022-05-24] MEDS ORDERED: Benzocaine/Menthol 20%-0.5% Spray 78 GM Cannister TOP PRN (20:42)
[2022-05-24] MEDS ORDERED: Witch Hazel Medicated Pads 40/Jar TOP PRN (20:42)
[2022-05-24] MEDS ORDERED: Sodium Chloride 0.9% 10 ML Syringe FLUSH SCH (21:00)
[2022-05-24] MEDS: Docusate Sodium 100 MG Cap PO PRN (21:37)
[2022-05-24] MEDS: Ibuprofen 600 MG Tab PO PRN (21:38)
[2022-05-25] MEDS: Ibuprofen 600 MG Tab PO PRN ×3 (05:06→20:27)
[2022-05-25] MEDS: Docusate Sodium 100 MG Cap PO PRN ×2 (08:21→22:10)
[2022-05-25] MEDS: Acetaminophen 325 MG Tab PO PRN ×2 (08:21→22:10)
[2022-05-26] MEDS: Acetaminophen 325 MG Tab PO PRN (03:06)
[2022-05-26] MEDS: Ibuprofen 600 MG Tab PO PRN (03:07)
[2022-05-26] MEDS ORDERED: Enoxaparin 40 MG/0.4 ML Syringe SUBCUT ONE (06:38)
[2022-05-26 10:29] VITALS: BP 131/69; PULSE 72
== END 2022-05-26 10:00 | disposition home or self-care (01) | DRG 560 ==
LOC: JD.OBCHECK 11:04 → JD.OB 11:05 → JD.OBCHECK 11:52 → JD.OB 11:52 → OBSVTOIN 20:11 → JD.OB 20:12
PROVIDERS: ADMIT Obstetrics & Gynecology; ATTEND Obstetrics & Gynecology
PROC: 10E0XZZ Delivery of Products of Conception, External Approach (ICD-10-PCS; principal; 2022-05-24)
PROC: 3E0R3BZ Introduction of Anesthetic Agent into Spinal Canal, Percutaneous Approach (ICD-10-PCS; 2022-05-24)
PROC: 00HU33Z Insertion of Infusion Device into Spinal Canal, Percutaneous Approach (ICD-10-PCS; 2022-05-24)
DX: O99.02 Anemia complicating childbirth (principal); Z37.0 Single live birth; D64.9 Anemia, unspecified; O99.62 Diseases of the digestive system complicating childbirth; K21.9 Gastro-esophageal reflux disease without esophagitis; O99.214 Obesity complicating childbirth; O66.0 Obstructed labor due to shoulder dystocia; Z3A.39 39 weeks gestation of pregnancy; Z88.5 Allergy status to narcotic agent; Z79.899 Other long term (current) drug therapy; Z86.718 Personal history of other venous thrombosis and embolism; Z79.01 Long term (current) use of anticoagulants
CPT/HCPCS: 01967; 36415; 51702; 59025; 59409; 84112; 85025; 86592; 86850; 86900; 86901; A9270-GY; J0290; J1650; J2590; J3010; J3490; J7120

== ENCOUNTER 2023-02-11 19:41 | Emergency (ER) | payer BC, OTHER ==
[2023-02-11 19:45] VITALS: BP 112/59; PULSE 68
[2023-02-11] MEDS ORDERED: HYDROmorphone 0.5 MG/0.5 ML Syringe IVPUSH ONE (21:00)
== END 2023-02-11 21:28 | disposition home or self-care (01) ==
LOC: JD.ED 19:41
DX: S89.92XA Unspecified injury of left lower leg, initial encounter (principal); M25.562 Pain in left knee; Z88.5 Allergy status to narcotic agent; Z79.899 Other long term (current) drug therapy; Z86.16 Personal history of COVID-19; W22.8XXA Striking against or struck by other objects, initial encounter
CPT/HCPCS: 73502; 73562; 96374; 99283; J1170

== ENCOUNTER 2024-07-12 19:20 | Emergency (ER) | payer BC ==
[2024-07-12 21:47] VITALS: BP 131/59; PULSE 72
== END 2024-07-12 21:10 | disposition home or self-care (01) ==
LOC: JD.ED 19:20
DX: S99.921A Unspecified injury of right foot, initial encounter (principal); E66.9 Obesity, unspecified; Z68.35 Body mass index [BMI] 35.0-35.9, adult; Z79.899 Other long term (current) drug therapy; Z86.16 Personal history of COVID-19; V00.131A Fall from skateboard, initial encounter
CPT/HCPCS: 73630-26-RT; 73630-RT; 99283

== ENCOUNTER 2024-09-25 14:56 | Emergency (ER) | payer BC ==
[2024-09-25 15:48] LABS: BASOPHILS PERCENT AUTO 0.4 % (0.0-1.0); EOSINOPHILS ABSOLUTE AUTO 0.3 K/mm3 (0.0-0.4); EOSINOPHILS PERCENT AUTO 3.6 % (0.0-6.0); HEMATOCRIT 45.2 % (37.0-47.0); HEMOGLOBIN 14.8 gm/dl (12.0-16.0); IMMATURE GRAN ABSOLUTE AUTO 0.02 K/mm3 (0.00-0.05); IMMATURE GRAN PERCENT AUTO 0.3 % (0.0-0.4); LYMPHOCYTES ABSOLUTE AUTO 2.8 K/mm3 (1.0-4.8); LYMPHOCYTES PERCENT AUTO 40.2 % (24.0-44.0); MEAN CORPUSCULAR HEMOGLOBIN 27.7 pg (28.0-32.0); MEAN CORPUSCULAR HGB CONC 32.7 g/dl (32.0-36.0); MEAN CORPUSCULAR VOLUME 84.6 fl (83.0-99.0); MEAN PLATELET VOLUME 9.8 fl (9.4-12.3); MONOCYTES ABSOLUTE AUTO 0.6 K/mm3 (0.0-0.8); MONOCYTES PERCENT AUTO 8.6 % (0.0-8.0); NEUTROPHILS ABSOLUTE AUTO 3.3 K/mm3 (1.8-7.7); NEUTROPHILS PERCENT AUTO 46.9 % (41.0-71.0); PLATELET COUNT,PLT 341 K/mm3 (150-400); RED BLOOD CELL COUNT 5.34 M/mm3 (4.10-5.30); WHITE BLOOD CELL COUNT,WBC 7.01 K/mm3 (3.9-11.3)
[2024-09-25 16:00] LABS: APPEARANCE,URINE CLEAR (Clear); BILIRUBIN,URINE NEGATIVE (Negative); COLOR,URINE YELLOW (Yellow); GLUCOSE,URINE NEGATIVE (Negative); KETONES,URINE NEGATIVE (Negative); LEUKOCYTE ESTERASE,URINE NEGATIVE (Negative); NITRITE,URINE NEGATIVE (Negative); OCCULT BLOOD,URINE NEGATIVE (Negative); PH,URINE 6.5 (5.0-8.0); PROTEIN,URINE NEGATIVE (Negative); UROBILINOGEN,URINE 0.2 (0.2-1.0)
[2024-09-25 16:15] LABS: BACTERIA,URINE FEW /hpf (FEW); MUCUS,URINE FEW /hpf (FEW); RBC,URINE 0-5 /hpf (0-5); SQUAMOUS EPITHELIAL CELLS,UR 0-5 /hpf (0-5); WBC,URINE 0-5 /hpf (0-5)
[2024-09-25 16:21] LABS: BARBITURATE SCREEN,URINE NEGATIVE (CUTOFF=200); BENZODIAZEPINES SCREEN,URINE NEGATIVE (CUTOFF=150); BUPRENORPHINE SCREEN,URINE NEGATIVE (CUTOFF=10); METHADONE SCREEN, URINE NEGATIVE (CUTOFF=200); METHAMPHETAMINES SCREEN, URINE NEGATIVE (CUTOFF=500); OXYCODONE SCREEN,URINE NEGATIVE (CUT0FF=100); THC SCREEN,URINE 20 NG/ML NEGATIVE (CUTOFF=50)
[2024-09-25 16:23] LABS: AMPHETAMINES SCREEN, URINE NEGATIVE (CUTOFF=500)
[2024-09-25 16:27] LABS: A/G RATIO 0.9 (1-2); ALANINE AMINOTRANSFERASE,ALT 43 U/L (14-59); ALBUMIN 3.5 g/dl (3.4-5.0); ALKALINE PHOSPHATASE 60 U/L (46-116); ANION GAP 16.9 (5-15); ASPARTATE AMNIOTRANSFERASE,AST 24 U/L (15-37); BILIRUBIN TOTAL 0.4 mg/dL (0.2-1.0); BLOOD UREA NITROGEN,BUN 12 mg/dL (7-18); BUN/CREATININE RATIO 10.9 (14-18); CALCIUM 9.3 mg/dL (8.5-10.1); CARBON DIOXIDE,CO2 25 mEq/L (21-32); CHLORIDE,CL 99 mEq/L (98-107); CREATINE KINASE,CK 78 U/L (26-192); CREATININE 1.1 mg/dL (0.55-1.02); EST CRCL DRUG DOSING (CG) 78.87 mL/min; ESTIMATED GFR 72 mL/min (>60); GLUCOSE RANDOM 85 mg/dL (70-99); MAGNESIUM 1.9 mg/dL (1.8-2.4); POTASSIUM,K 3.9 mEq/L (3.5-5.1); PROTEIN TOTAL,TP 7.4 g/dl (6.4-8.2); SODIUM,NA 137 mEq/L (136-145)
[2024-09-25 16:35] LABS: TROPONIN I HIGH SENSITIVITY < 4 pg/mL (<=51)
[2024-09-25 16:49] VITALS: BP 105/72; PULSE 82
== END 2024-09-25 16:52 | disposition home or self-care (01) ==
LOC: JD.ED 14:56
DX: F41.9 Anxiety disorder, unspecified (principal); E86.9 Volume depletion, unspecified; E66.9 Obesity, unspecified; Z86.16 Personal history of COVID-19; Z90.89 Acquired absence of other organs; Z79.899 Other long term (current) drug therapy; Z68.42 Body mass index [BMI] 45.0-49.9, adult
CPT/HCPCS: 36415; 80053; 80306; 81001; 82550; 83735; 84484; 85025; 87428-QW; 93005; 99285

== ENCOUNTER 2025-06-10 07:50 | Emergency (ER) | payer BC, OTHER ==
[2025-06-10] MEDS ORDERED: Sodium Chloride 0.9% 10 ML Syringe FLUSH PRN (08:49)
[2025-06-10 09:06] LABS: BASOPHILS ABSOLUTE AUTO 0.1 K/mm3 (0.0-0.2); BASOPHILS PERCENT AUTO 0.6 % (0.0-1.0); EOSINOPHILS ABSOLUTE AUTO 0.2 K/mm3 (0.0-0.4); EOSINOPHILS PERCENT AUTO 2.5 % (0.0-6.0); IMMATURE GRAN ABSOLUTE AUTO 0.02 K/mm3 (0.00-0.05); IMMATURE GRAN PERCENT AUTO 0.3 % (0.0-0.4); LYMPHOCYTES ABSOLUTE AUTO 2.2 K/mm3 (1.0-4.8); LYMPHOCYTES PERCENT AUTO 28.2 % (24.0-44.0); MEAN PLATELET VOLUME 10.1 fl (9.4-12.3); MONOCYTES ABSOLUTE AUTO 0.5 K/mm3 (0.0-0.8); MONOCYTES PERCENT AUTO 6.8 % (0.0-8.0); NEUTROPHILS ABSOLUTE AUTO 4.9 K/mm3 (1.8-7.7); NEUTROPHILS PERCENT AUTO 61.6 % (41.0-71.0); NRBC ABSOLUTE 0.00 (0.00-0.02); NRBC PERCENT 0.0 % (0.0-0.2); PLATELET COUNT,PLT 325 K/mm3 (150-400); RED BLOOD CELL COUNT 4.94 M/mm3 (4.10-5.30); WHITE BLOOD CELL COUNT,WBC 7.93 K/mm3 (3.9-11.3)
[2025-06-10 09:17] LABS: A/G RATIO 0.8 (1-2); ALANINE AMINOTRANSFERASE,ALT 44.0 U/L (14-59); ASPARTATE AMNIOTRANSFERASE,AST 20.0 U/L (15-37); BILIRUBIN TOTAL 0.4 mg/dL (0.2-1.0); BLOOD UREA NITROGEN,BUN 11.0 mg/dL (7-18); CARBON DIOXIDE,CO2 26.0 mEq/L (21-32); CHLORIDE,CL 106.0 mEq/L (98-107); CREATININE 1.1 mg/dL (0.55-1.02); EST CRCL DRUG DOSING (CG) 80.99 mL/min; ESTIMATED GFR 71.0 mL/min (>60); GLUCOSE RANDOM 109.0 mg/dL (70-99); POTASSIUM,K 3.8 mEq/L (3.5-5.1); PROTEIN TOTAL,TP 6.9 g/dl (6.4-8.2); SODIUM,NA 140.0 mEq/L (136-145); TROPONIN I HIGH SENSITIVITY 5.0 pg/mL (<=51)
[2025-06-10] MEDS: Iopamidol 755 Mg/ML 100 ML Bottle IVPUSH ONE (09:24)
[2025-06-10] MEDS: Alum Hydrox/Mag Hydrox/Simeth 30 ML, Lidocaine 2% 15 ML PO ONE (09:29)
[2025-06-10] MEDS: Ketorolac 15 MG/ML SDV IVPUSH ONE (10:43)
[2025-06-10 10:48] LABS: APPEARANCE,URINE CLEAR (Clear); GLUCOSE,URINE NEGATIVE (Negative); OCCULT BLOOD,URINE NEGATIVE (Negative)
[2025-06-10 11:09] VITALS: BP 148/57; PULSE 52
== END 2025-06-10 11:00 | disposition home or self-care (01) ==
LOC: JD.ED 07:50
DX: R07.9 Chest pain, unspecified (principal); K21.9 Gastro-esophageal reflux disease without esophagitis; Z79.899 Other long term (current) drug therapy; Z86.16 Personal history of COVID-19
CPT/HCPCS: 36415; 71275; 80053; 81003; 83690; 84484; 84703; 85025; 93005; 96361; 96374; 99285; A9270; J1885; J3490; J7030; Q9967; 93010; 99283

== ENCOUNTER 2025-06-12 13:51 | Emergency (ER) | payer OTHER ==
[2025-06-12 15:07] LABS: BASOPHILS ABSOLUTE AUTO 0.1 K/mm3 (0.0-0.2); BASOPHILS PERCENT AUTO 0.6 % (0.0-1.0); EOSINOPHILS ABSOLUTE AUTO 0.2 K/mm3 (0.0-0.4); EOSINOPHILS PERCENT AUTO 2.4 % (0.0-6.0); IMMATURE GRAN ABSOLUTE AUTO 0.02 K/mm3 (0.00-0.05); IMMATURE GRAN PERCENT AUTO 0.2 % (0.0-0.4); LYMPHOCYTES ABSOLUTE AUTO 2.4 K/mm3 (1.0-4.8); LYMPHOCYTES PERCENT AUTO 29.7 % (24.0-44.0); MEAN PLATELET VOLUME 9.5 fl (9.4-12.3); MONOCYTES ABSOLUTE AUTO 0.5 K/mm3 (0.0-0.8); MONOCYTES PERCENT AUTO 6.1 % (0.0-8.0); NEUTROPHILS ABSOLUTE AUTO 5.0 K/mm3 (1.8-7.7); NEUTROPHILS PERCENT AUTO 61.0 % (41.0-71.0); NRBC ABSOLUTE 0.00 (0.00-0.02); NRBC PERCENT 0.0 % (0.0-0.2); PLATELET COUNT,PLT 306 K/mm3 (150-400); RED BLOOD CELL COUNT 4.62 M/mm3 (4.10-5.30); WHITE BLOOD CELL COUNT,WBC 8.18 K/mm3 (3.9-11.3)
[2025-06-12 20:12] VITALS: BP 135/82; PULSE 62
== END 2025-06-12 17:30 | disposition home or self-care (01) ==
LOC: JD.ED 13:51
DX: O03.9 Complete or unspecified spontaneous abortion without complication (principal); Z86.16 Personal history of COVID-19
CPT/HCPCS: 36415; 76817; 76817-26; 84702; 85025; 86900; 86901; 99284